=== PATIENT | male | born 1960 | race Caucasian/White ===

== ENCOUNTER → 2022-05-29 07:40 | Outpatient (REF) | payer OTHER, SELFPAY ==
--- NOTE | 2022-05-29 07:45 | CA_ITS ---
Transthoracic Echocardiogram Patient (Last, First, Middle): Juvenal Morataya, Gender: Male Date of : 1960 Age: 62 Procedure Date: 05/29/2022 Procedure Type: Transthoracic Echocardiogram Location: OP Height: 157.48 cm Weight: 86.18 kg BSA: 1.87 m2 Heart Rate: bpm BP: 151 / 70 mmHg Bioinformatics Support Specialist: TO Referring MD: Jeannine Gan MD Symptoms: HEART MURMUR Study Quality: Fair/Contrast ECG Rhythm: Sinus Conclusions: - The left ventricular systolic function is normal. The calculated ejection fraction is 64% by biplane method. - No obvious valvular pathology seen on this study. - There is mild dilatation of the ascending aorta measuring 4.00 cm. Findings Procedure Information Contrast agent, definity, is being given per protocol without apparent complications. Left Ventricle Normal left ventricular cavity size. The left ventricular systolic function is normal. The calculated ejection fraction is 64% by biplane method. There is no evidence of regional wall motion abnormalities. Diastolic function is normal for age. There is mild septal asymmetric hypertrophy. Right Ventricle Normal right ventricular cavity size and systolic function. Atria Both atria are normal in size. Aortic Valve There is a normal trileaflet aortic valve. There is mild thickening of the aortic valve. There is no aortic valve stenosis. Trace to mild aortic regurgitation. Mitral Valve The mitral valve appears normal. There is trace mitral valve regurgitation. There is no mitral valve stenosis. Pulmonic Valve The pulmonic valve is likely normal. Tricuspid Valve Normal tricuspid valve structure. There is mild tricuspid valve regurgitation. Borderline pulmonary artery systolic pressure. Great Vessels There is mild dilatation of the ascending aorta measuring 4.00 cm. Venous The inferior vena cava is normal in size and collapses greater than 50% with inspiration. Pericardium/Pleural There is no evidence of pericardial effusion. Prior Study Comparison No prior study available for comparison. Recommendations, Care & Conclusions No obvious valvular pathology seen on this study. Measurements 2D Linear Measurements IVSd: 1.07 0.6-0.9/0.6-1.0 cm LVIDd: 4.24 3.9-5.3/4.2-5.9 cm LVIDd Index: 2.27 2.4-3.2/2.2-3.1 cm/m2 LVIDs: 2.66 2.0-3.6 cm LVPWd: 0.79 0.7-1.1 cm LA Diam: 2.80 2.7-3.8/3.0-4.0 cm LAIDs Index: 1.50 1.5-2.3 cm/m2 LV Mass: 156.55 67-162/88-224 g LV Mass Index: 83.72 43-95/49-115 g/m2 LVOT Diam: 2.00 3.0+(-)1.3 cm 2D Systolic Function EF 4C: 64.00 >55% EF 2C: 62.50 >55% EF BiP: 64.40 >55% Mitral Valve MV Pk E: 0.75 MV PK A: 0.53 MV Decel Time: 172.00 E/A: 1.40 E'Lateral: 10.60 E'Medial: 7.29 E/E' Med: 10.20 E/E' Lat: 7.00 PHT: 50.00 MVA PHT: 4.40 Decel [place]: 4.34 Aortic Valve AoV Pk Sal: 1.39 AoV Mn Sal: 0.99 AoV VTI: 0.30 AoV Pk Grad: 8.00 Aov Mn Grad: 4.00 SARAH Cont.VTI: 2.79 LVOT LVOT Pk Sal: 1.31 LVOT Mn Sal: 0.83 LVOT VTI: 0.27 LVOT Pk Grad: 7.00 LVOT Mn Grad: 3.00 LVOT Diam: 2.00 LVOT Area: 3.14 Diastolic Function MV Pk E: 0.75 MV Pk A: 0.53 E/A: 1.40 E'Medial: 7.29 E/E' Med: 10.20 E' Laterial: 10.60 E/E' Lat: 7.00 Right Ventricle TAPSE (mm): 26.20 TVS' Sal: 11.90 Tricuspid Valve TR Pk Sal: 2.82 TR Pk Grad: 32.00 RA Press: 3.00 RVSP: 35.00 Great Vessels Aorta Sinus of Valsalva: 3.84 2.0-3.[address] [place]: 3.17 1.7-3.4 cm Ao Asc: 4.00 2.1-3.4 cm Updated in Other Vendor System with Status of Final Zack Valenzuela MD electronically signed on 05/31/2022 12:57:38 PM with status of Final
== END ==
LOC: HO.CARD 07:40
PROVIDERS: PCP Student in an Organized Health Care Education/Training Program; Visit Provider Internal Medicine
DX: R01.1 Cardiac murmur, unspecified (principal)
CPT/HCPCS: 93306; Q9957

== ENCOUNTER 2022-12-17 09:34 | Outpatient (REF) | payer MEDICARE, SELFPAY ==
[2022-12-17 15:13] LABS: Anion Gap 10 (12-20); Blood Urea Nitrogen 16 mg/dL (9-16); Calcium 9.9 mg/dL (8.4-10.2); Carbon Dioxide 27 mmol/L (22-29); Chloride 106 mmol/L (96-108); Estimated Glomerular Filt Rate > 60; Glucose Fasting 94 mg/dL (60-99); Sodium 139 mmol/L (135-145)
[2022-12-17 16:15] LABS: Creatinine Urine 248.22 mg/dL; Microalbum/Creatinine Ratio Ur 3.6 ug/mg cr (<30)
== END 2022-12-17 09:35 | disposition home or self-care (01) ==
LOC: HO.CHCLDS 09:34
PROVIDERS: Visit Provider Student in an Organized Health Care Education/Training Program
DX: E11.9 Type 2 diabetes mellitus without complications (principal)
CPT/HCPCS: 36415; 80048; 82043; 82570

== ENCOUNTER 2023-02-03 09:12 | Outpatient (AMB) | payer OTHER, SELFPAY ==
--- NOTE | 2023-02-03 09:39 | MHC.OFFVIS ---
Intake Vital Signs 02/03/23 09:40 Height 5 ft 2 in Weight 177 lb BMI 32.4 BP 104/63 Blood Pressure Location Rt brachial Position Sitting Pulse 77 Intake Visit Reasons: umbilical hernia Intake Note: Patient referred for umbilical hernia. Has been present for 11mo. C/o bothersome when pressed on, bending. Denies nausea. 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 Has a very large symptomatic right inguinal hernia. He wished to have this repaired. He does occasional heavy lifting and straining. He has no other GI issues or complaints. Chart was reviewed patient evaluated [facility] Medical History (Updated 02/03/23 @ 09:49 by NITZA Massey) Left inguinal hernia Right inguinal hernia Bipolar affective disorder in remission Type 2 diabetes mellitus HTN (hypertension) Surgical History (Updated 02/03/23 @ 10:08 by Terry Torres MD) Hip joint replacement by other means Social History (Updated 02/03/23 @ 09:49 by NITZA Massey) Patient Tobacco Use Status: Former Tobacco user Physical Exam Vital Signs: Last Vital Signs Pulse 77 02/03/23 09:40 BP 104/63 02/03/23 09:40 BMI result Body Mass Index 32.4 Chest Other: Chest breath sounds bilaterally, HS 1 in 2 GI Other: Patient was examined both supine and standing with Valsalva. Left groin negative. Genitalia within normal limits. Very large right inguinal hernia. Abdomen moderately core benign, soft, approximately 2 cm incarcerated umbilical hernia. Assessment & Plan Assessment & Plan (1) Inguinal hernia: Code(s): K40.90 - Unilateral inguinal hernia, without obstruction or gangrene, not specified as recurrent (2) Incarcerated umbilical hernia: Code(s): K42.0 - Umbilical hernia with obstruction, without gangrene Plan I discussed with the patient the risks, benefits, alternatives of open repair of right inguinal hernia and umbilical hernia. These included but not limited to bleeding, infection, recurrence, numbness, pain, scarring the patient was to proceed. All questions were answered. Arrangements will be made for this on a day which is convenient for him. Coding Level of Care Code New Pt Level 5 (38898) Diagnoses Inguinal hernia K40.90 Incarcerated umbilical hernia K42.0
[2023-02-03 09:40] VITALS: BP 104/63; PULSE 77; BMI 32.4
== END 2023-02-03 10:23 | disposition home or self-care (01) ==
PROVIDERS: PCP Student in an Organized Health Care Education/Training Program; Visit Provider Surgery
DX: K40.90 Unilateral inguinal hernia, without obstruction or gangrene, not specified as recurrent (principal); K42.0 Umbilical hernia with obstruction, without gangrene
CPT/HCPCS: 99204

== ENCOUNTER → 2023-02-03 09:12 | Outpatient (BNVA) | payer OTHER, SELFPAY | PROVIDERS: PCP Student in an Organized Health Care Education/Training Program; Visit Provider Surgery | DX: K42.0 Umbilical hernia with obstruction, without gangrene (principal); K40.90 Unilateral inguinal hernia, without obstruction or gangrene, not specified as recurrent | CPT/HCPCS: 99202 ==

== ENCOUNTER 2023-02-27 06:34 | Day surgery (SDC) | payer OTHER, SELFPAY ==
[2023-02-25 11:18] VITALS: BMI 32.4
[2023-02-25 11:43] VITALS: BMI 30.1
--- NOTE | 2023-02-26 12:30 | MHC.SHP ---
Pre-Procedural Eval Section A Date of Service: 02/26/23 The patient is an INPATIENT: No Changes since office visit: No Cold of Flu in the past 2 weeks, No New Medical Problems, No Changes in Medication and No Patient answered all questions The History & Physical has been completed within 30 days and I have reviewed it.: Yes Section B Chief Complaint: Unilateral inguinal hernia,Umbilical hernia with Allergies: Allergies Allergy/AdvReac Type Severity Reaction Status Date / Time No Known Allergies Allergy Verified 02/25/23 11:47 Plan I have reviewed the history and physical and performed a pertinent physical examination on my patient. No changes have occurred unless specified. Time Spent With Patient Time: Total time managing care of this patient today ____ minutes.
[2023-02-27] VITALS (8 sets, daily range): BP systolic 138–163; BP diastolic 82–95; PULSE 61–82; RESP 16–18; TEMP 36.1–36.6; O2SAT 97–99; BMI 30.6
[2023-02-27 09:10] LABS: Glucose, Whole Blood 104 mg/dL (60-115)
--- NOTE | 2023-02-27 10:50 | HO.ANESPROP2 ---
Documented by User: Barbi Raymundo NP 02/26/23 08:45 HPI - Anesthesia Eval Consult details Narrative: 63yo M for Right OPEN Hernia Repair Inguinal with mesh, Incarcerated Hernia Repair Umbilical with mesh Suboxone daily PMFSH Active Problems Active Problems: All Active Problems (Updated 02/25/23 @ 11:41 by Anna Strong RN) Incarcerated umbilical hernia (Acute) Inguinal hernia (Acute) Past Medical History Medical History (Updated 02/25/23 @ 11:47 by Anna Strong RN) Hx of renal calculi Depression Anxiety Insomnia COPD (chronic obstructive pulmonary disease) Murmur, cardiac Hx of hepatitis C Left inguinal hernia Right inguinal hernia Bipolar affective disorder in remission Type 2 diabetes mellitus HTN (hypertension) Surgical History Surgical History (Updated 02/25/23 @ 11:41 by Anna Strong RN) Hx of shoulder surgery Hx of left inguinal hernia repair History of right hip replacement Social History Social History (Updated 02/25/23 @ 11:43 by Anna Strong RN) Are you a primary insurance healthcare consultant to a significant other at home: No Do you presently have visiting nurse or other home services: No Patient Tobacco Use Status: Former Tobacco user Quit Date: 2016 Tobacco use type: Cigarette Substance Use Type Other:: on Suboxone since 2011 Last Used Substance Other:: on Suboxone since 2011 Have you been hit, kicked, punched, or otherwise hurt by someone within the past year? If so, by whom?: No Are you DNR?: No Advance Directives: No Advance Directives Information Provided: Yes Advance Directives on File: No Recently lost weight without trying: No Poor oral hygiene: Yes (no teeth) Meds Allergies Allergy/AdvReac Type Severity Reaction Status Date / Time No Known Allergies Allergy Verified 02/25/23 11:47 Home Medications Medication Instructions Recorded Confirmed Last Taken Type buprenorphine 8 mg-naloxone 2 mg 1 film buccal DAILY 02/03/23 02/25/23 Unknown History sublingual film (Suboxone) lisinopril 10 mg tablet 10 mg PO DAILY 02/03/23 02/25/23 Unknown History metformin 500 mg tablet 500 mg PO BID 02/03/23 02/25/23 Unknown History Flovent PRN Shortness Of Breath 02/25/23 02/25/23 Unknown History clonidine HCl 0.1 mg tablet 0.1 mg PO BID 02/25/23 02/25/23 Unknown History diclofenac sodium 1 % topical gel 2 g topical BID PRN Pain 02/25/23 02/25/23 Unknown History perphenazine 2 mg tablet 2 mg PO DAILY PRN Agitation 02/25/23 02/25/23 Unknown History perphenazine 4 mg tablet 4 mg PO DAILY 02/25/23 02/25/23 Unknown History venlafaxine 37.5 mg 37.5 mg PO DAILY 02/25/23 02/25/23 Unknown History capsule,extended release 24 hr zolpidem 10 mg tablet 10 mg PO BEDTIME PRN insomnia 02/25/23 02/25/23 Unknown History Exam Height,Weight and Vital Signs: Height 5 ft 3 in Weight 77.111 kg Pertinent Lab Results Pertinent Lab Results: Laboratory Tests 12/17/22 09:38 Sodium 139 Potassium 4.0 Chloride 106 Carbon Dioxide 27 BUN 16 Creatinine 0.83 Assessment and Plan Assessment Anesthesia Assessment: Chart Reviewed Documented by User: Malissa Nazario DO 02/27/23 10:53 HPI - Anesthesia Eval Consult details Narrative: 63yo M for Right OPEN Hernia Repair Inguinal with mesh, Incarcerated Hernia Repair Umbilical with mesh Suboxone daily - did not take today PMFSH Past Medical History Medical History (Updated 02/25/23 @ 11:47 by Anna Strong, ADELINA) Hx of renal calculi Depression Anxiety Insomnia COPD (chronic obstructive pulmonary disease) Murmur, cardiac Hx of hepatitis C Left inguinal hernia Right inguinal hernia Bipolar affective disorder in remission Type 2 diabetes mellitus HTN (hypertension) Surgical History Surgical History (Updated 02/25/23 @ 11:41 by Anna Strong, ADELINA) Hx of shoulder surgery Hx of left inguinal hernia repair History of right hip replacement History of Problems with Anesthesia: No Social History Social History (Updated 02/25/23 @ 11:43 by Anna Strong, ADELINA) Are you a primary insurance healthcare consultant to a significant other at home: No Do you presently have visiting nurse or other home services: No Patient Tobacco Use Status: Former Tobacco user Quit Date: 2016 Tobacco use type: Cigarette Substance Use Type Other:: on Suboxone since 2011 Last Used Substance Other:: on Suboxone since 2011 Have you been hit, kicked, punched, or otherwise hurt by someone within the past year? If so, by whom?: No Are you DNR?: No Advance Directives: No Advance Directives Information Provided: Yes Advance Directives on File: No Recently lost weight without trying: No Poor oral hygiene: Yes (no teeth) Meds Allergies Allergy/AdvReac Type Severity Reaction Status Date / Time No Known Allergies Allergy Verified 02/25/23 11:47 Home Medications Medication Instructions Recorded Confirmed Last Taken Type buprenorphine 8 mg-naloxone 2 mg 1 film buccal DAILY 02/03/23 02/25/23 Unknown History sublingual film (Suboxone) lisinopril 10 mg tablet 10 mg PO DAILY 02/03/23 02/25/23 Unknown History metformin 500 mg tablet 500 mg PO BID 02/03/23 02/25/23 Unknown History Flovent PRN Shortness Of Breath 02/25/23 02/25/23 Unknown History clonidine HCl 0.1 mg tablet 0.1 mg PO BID 02/25/23 02/25/23 Unknown History diclofenac sodium 1 % topical gel 2 g topical BID PRN Pain 02/25/23 02/25/23 Unknown History perphenazine 2 mg tablet 2 mg PO DAILY PRN Agitation 02/25/23 02/25/23 Unknown History perphenazine 4 mg tablet 4 mg PO DAILY 02/25/23 02/25/23 Unknown History venlafaxine 37.5 mg 37.5 mg PO DAILY 02/25/23 02/25/23 Unknown History capsule,extended release 24 hr zolpidem 10 mg tablet 10 mg PO BEDTIME PRN insomnia 02/25/23 02/25/23 Unknown History Exam Exam Date and Time: February 27, 2023 105 Height,Weight and Vital Signs: Height 5 ft 3 in Weight 77.111 kg Height 5 ft 3 in Weight 78.471 kg Vital Signs Temperature 97.9 F 02/27/23 09:14 Pulse Rate 66 02/27/23 09:14 Respiratory Rate 16 02/27/23 09:14 Blood Pressure 138/82 02/27/23 09:14 Pulse Oximetry 99 02/27/23 09:14 Oxygen Delivery Method Room Air 02/27/23 09:14 Temperature 97.9 F 02/27/23 09:14 Pulse Rate 66 02/27/23 09:14 Respiratory Rate 16 02/27/23 09:14 Blood Pressure 138/82 02/27/23 09:14 Pulse Oximetry 99 02/27/23 09:14 Oxygen Delivery Method Room Air 02/27/23 09:14 Airway Mallampati Class: II TM Dist: <=3cm Neck ROM: Full Loose/Missing/Broken Teeth: Yes (multiple missing teeth) Heart: S1S2 Lungs: CTAB Assessment and Plan Assessment Anesthesia Assessment: Anesthesia Plan Discussed and Chart Reviewed Final Anesthetic Review History of Problems with Anesthesia: No NPO: Yes ASA Class: III Final Preanesthetic Review: No Changes in Pt Med Stat, Meds/Allgs Chart Reviewed, Consent Obtained/Reviewed and Anes Risks/Benef Reviewed Patient Risk: Low Procedure Risk: Low Anesthetic Plan Anesthetic Plan: MAC: and Agree w/ Assess. and Plan Disposition: Standard PACU
--- NOTE | 2023-02-27 12:19 | W.PM.OPN ---
Operative Note Operative Note Date of Service: 02/27/23 Narrative: Preoperative diagnosis: [] 1. Right inguinal hernia 2. Incarcerated umbilical hernia Postop diagnosis: [] Same Procedure [] 1. Repair open technique right inguinal hernia with Bard mesh 2. Repair open technique incarcerated umbilical hernia with Bard mesh Surgeon: [] [employer] Specialist: [] Type of Anesthesia: MAC Indication for surgery: Approximately 2 cm incarcerated umbilical hernia with omental contents. Large indirect inguinal hernia. No direct hernia demonstrated. Findings: [] Patient brought to the operating room, placed on the operative table in supine position, after adequate level of MAC anesthesia was induced, patient's abdomen, and right groin were prepped and draped in usual sterile fashion. Commencing with the right inguinal hernia, a small right para- inguinal incision was made and carried down through skin, subcutaneous tissue, Michelle's fascia. External oblique fibers were opened their direction with care to isolate and preserve the ilioinguinal nerve throughout the procedure. Spermatic cord was identified and retracted from the field. No direct hernia was demonstrated. A very large indirect hernia sac was from the cord, and reduced. An extra-large Bard plug was placed in this indirect defect, and sutured inferiorly to the inguinal ligament, and superiorly to the transversalis fascia using interrupted 0 Ethibond suture. Wound was irrigated, secured hemostasis. Was closed in the following manner; external oblique fascia was reapproximated using running 2-0 Vicryl suture. Michelle's fascia was closed using interrupted 3-0 Vicryl sutures. Interrupted inverted deep dermal 3-0 Vicryl sutures followed by running subcuticular 4-0 Vicryl suture placed. Steri-Strips and sterile dressings were applied. Wound was infiltrated 0.5% Marcaine/1% lidocaine at the beginning and at completion. Ipsilateral testicle was intrascrotal at completion the procedure. Umbilical hernia was then approached using an infraumbilical curvilinear incision, and carried down through skin, subcutaneous tissue, where hernia sac was identified and dissected free from the posterior aspect of the umbilicus. Sac was opened where incarcerated omentum and sac were amputated using Bovie and sent to pathology. Fascia margins were cleared. A Bard mesh was placed in this defect, and the superficial layer of the mesh was circumferentially sutured to the surrounding fascia using interrupted 0 Ethibond suture. At completion the procedure, mesh was in good position no with no evidence of gaps or tension. Wounds irrigated, secured hemostasis. The wound Was closed in the following manner; posterior aspect of the umbilicus was tacked to the wound floor using interrupted 3-0 Vicryl sutures. Skin was closed using interrupted inverted dermal 3-0 Vicryl sutures followed by Steri-Strips and sterile dressings. Wound was also infiltrated 0.5% Marcaine/1% lidocaine at beginning and end of the procedure. Sponge, needle, and instrument counts reported correct. Patient tolerated procedure well and emerged anesthesia stable condition. EBL minimal
[2023-02-27] MEDS: oxyCODONE HCl Immed Release 5 MG TABLET 10 MG PO (13:10)
--- NOTE | 2023-02-27 13:57 | PC.NURSE ---
[facility] [place] pharmacy delivered prescriptions to patient/spouse in discharge.
== END 2023-02-27 14:30 | disposition home or self-care (01) ==
PROVIDERS: PCP Student in an Organized Health Care Education/Training Program; Visit Provider Surgery
PROC: (CPT 49505; principal; 2023-02-27 10:20)
PROC: (CPT 49505; 2023-02-27 10:20)
DX: K40.90 Unilateral inguinal hernia, without obstruction or gangrene, not specified as recurrent (principal); K42.0 Umbilical hernia with obstruction, without gangrene; I10 Essential (primary) hypertension; E11.9 Type 2 diabetes mellitus without complications; F31.70 Bipolar disorder, currently in remission, most recent episode unspecified; J44.9 Chronic obstructive pulmonary disease, unspecified; Z79.84 Long term (current) use of oral hypoglycemic drugs; Z79.899 Other long term (current) drug therapy; F11.20 Opioid dependence, uncomplicated; Z87.891 Personal history of nicotine dependence; Z98.890 Other specified postprocedural states
CPT/HCPCS: 49505; 49592; 82947; 88304; C1781; J0131; J0690; J1885; J2250; J2704; J2795; J3010

== ENCOUNTER → 2023-02-27 06:34 | Outpatient (BNV) | payer OTHER, SELFPAY | PROVIDERS: PCP Student in an Organized Health Care Education/Training Program; Visit Provider Surgery | DX: K40.90 Unilateral inguinal hernia, without obstruction or gangrene, not specified as recurrent (principal); K42.0 Umbilical hernia with obstruction, without gangrene | CPT/HCPCS: 49505; 49592 ==

== ENCOUNTER 2023-03-07 09:29 | Outpatient (AMB) | payer OTHER, SELFPAY ==
[2023-03-07 09:33] VITALS: BP 134/77; PULSE 65
--- NOTE | 2023-03-07 09:33 | A.OFFVIS_ITS ---
Intake Vital Signs 03/07/23 09:33 Weight 175 lb BP 134/77 Blood Pressure Location Rt brachial Position Sitting Pulse 65 Intake Visit Reasons: S/P RIH w/mesh, umbilical hernia w/mesh Intake Note: Patient here s/p RIH w/mesh and Umbilical hernia w/mesh repair on 02-27-23. Reports incisions healing well. Denies bleeding. Taking tylenol or ibuprofen for pain. 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 He has minimal incisional discomfort. He is tolerating it diet and having normal bowel habits. He has been increasing his activity level. [facility] Medical History Hx of renal calculi Depression Anxiety Insomnia COPD (chronic obstructive pulmonary disease) Murmur, cardiac Hx of hepatitis C Left inguinal hernia Right inguinal hernia Bipolar affective disorder in remission Type 2 diabetes mellitus HTN (hypertension) Surgical History Hx of shoulder surgery Hx of left inguinal hernia repair History of right hip replacement Social History Are you a primary care worker to a significant other at home: No Do you presently have visiting nurse or other home services: No Patient Tobacco Use Status: Former Tobacco user Quit Date: 2016 Tobacco use type: Cigarette Physical Exam Vital Signs: Last Vital Signs Pulse 65 03/07/23 09:33 BP 134/77 03/07/23 09:33 GI Other: Abdomen soft. Umbilical right groin wounds well healed. Assessment & Plan Assessment & Plan (1) Incarcerated umbilical hernia: Code(s): K42.0 - Umbilical hernia with obstruction, without gangrene (2) Inguinal hernia: Code(s): K40.90 - Unilateral inguinal hernia, without obstruction or gangrene, not specified as recurrent Plan Patient has been given local instructions including avoiding stress activities next few weeks time and will follow-up p.r.n.. All questions answered. Coding Level of Care Code Global (01408) Diagnoses Incarcerated umbilical hernia K42.0 Inguinal hernia K40.90
== END 2023-03-07 10:42 | disposition home or self-care (01) ==
PROVIDERS: PCP Student in an Organized Health Care Education/Training Program; Visit Provider Surgery
DX: K42.0 Umbilical hernia with obstruction, without gangrene (principal); K40.90 Unilateral inguinal hernia, without obstruction or gangrene, not specified as recurrent
CPT/HCPCS: 99024

== ENCOUNTER → 2023-03-07 09:29 | Outpatient (BNVA) | payer OTHER, SELFPAY | PROVIDERS: PCP Student in an Organized Health Care Education/Training Program; Visit Provider Surgery | DX: K42.0 Umbilical hernia with obstruction, without gangrene (principal); K40.90 Unilateral inguinal hernia, without obstruction or gangrene, not specified as recurrent | CPT/HCPCS: 99212 ==

== ENCOUNTER 2023-06-18 10:14 | Outpatient (REF) | payer OTHER, SELFPAY ==
[2023-06-18 14:56] LABS: Estimated Average Glucose 108 mg/dL; Hemoglobin A1c % 5.4 % (<6.0)
[2023-06-18 15:05] LABS: Alanine Aminotransferase 13 U/L (0-40); Albumin Level 4.2 g/dL (3.5-5.0); Alkaline Phosphatase 60 U/L (39-117); Anion Gap 10 (12-20); Aspartate Amino Transferase 19 U/L (5-37); Bilirubin Direct 0.5 mg/dL (0.0-0.5); Bilirubin Total 1.7 mg/dL (0.0-1.0); Blood Urea Nitrogen 17 mg/dL (9-16); Calcium 9.2 mg/dL (8.4-10.2); Carbon Dioxide 28 mmol/L (22-29); Chloride 105 mmol/L (96-108); Cholesterol 194 mg/dL (<200); Estimated Glomerular Filt Rate > 60; Glucose Random 91 mg/dL (60-115); HDL Cholesterol 36 mg/dL (>40); LDL Cholesterol Calculated 128 mg/dL (<100); Potassium 4.2 mmol/L (3.3-5.1); Sodium 139 mmol/L (135-145); Total Protein 7.8 g/dL (6.5-8.0); Triglycerides 153 mg/dL (<150)
== END 2023-06-18 10:15 | disposition home or self-care (01) ==
LOC: HO.CHCLDS 10:14
PROVIDERS: Visit Provider Student in an Organized Health Care Education/Training Program
DX: E11.9 Type 2 diabetes mellitus without complications (principal)
CPT/HCPCS: 36415; 80048; 80061; 80076; 83036

== ENCOUNTER 2023-11-12 10:37 | Outpatient (REF) | payer OTHER, SELFPAY ==
[2023-11-12 14:20] LABS: Hematocrit 38.4 % (42.0-52.0); Mean Corpuscular HGB Conc 33.9 g/dl (31.0-36.0); Mean Corpuscular Hemoglobin 29.3 pg (27.0-33.0); Mean Corpuscular Volume 86.7 fL (80.0-98.0); Mean Platelet Volume 10.6 fL (9.4-12.4); Platelet Count 226 X10*3/uL (160-400); Red Blood Count 4.43 X10*6/uL (4.60-5.80); Red Cell Distribution Width 12.5 % (11.0-16.0)
[2023-11-12 14:34] LABS: Alanine Aminotransferase 13 U/L (0-40); Albumin Level 4.1 g/dL (3.5-5.0); Alkaline Phosphatase 51 U/L (39-117); Anion Gap 10 (12-20); Aspartate Amino Transferase 19 U/L (5-37); Bilirubin Total 1.7 mg/dL (0.0-1.0); Blood Urea Nitrogen 15 mg/dL (9-16); Calcium 9.5 mg/dL (8.4-10.2); Carbon Dioxide 29 mmol/L (22-29); Chloride 106 mmol/L (96-108); Estimated Glomerular Filt Rate > 60; Glucose Random 93 mg/dL (60-115); Potassium 4.4 mmol/L (3.3-5.1); Sodium 141 mmol/L (135-145); Total Protein 7.3 g/dL (6.5-8.0)
== END 2023-11-12 10:38 | disposition home or self-care (01) ==
LOC: HO.CHCLDS 10:37
PROVIDERS: Visit Provider Internal Medicine
DX: I10 Essential (primary) hypertension (principal); E11.9 Type 2 diabetes mellitus without complications; Z01.818 Encounter for other preprocedural examination
CPT/HCPCS: 36415; 80053; 85027

== ENCOUNTER 2024-02-09 10:29 | Outpatient (REF) | payer OTHER, SELFPAY ==
[2024-02-09 14:30] LABS: Estimated Average Glucose 114 mg/dL; Hemoglobin A1C 130.0575 umol/L; Hemoglobin A1c % 5.6 % (<6.0); Total Hemoglobin (HGBA1C) 3491.3985 umol/L
[2024-02-09 14:38] LABS: Alanine Aminotransferase 12 U/L (0-40); Albumin Level 4.2 g/dL (3.5-5.0); Alkaline Phosphatase 57 U/L (39-117); Anion Gap 10 (12-20); Aspartate Amino Transferase 30 U/L (5-37); Bilirubin Direct 0.5 mg/dL (0.0-0.5); Bilirubin Total 1.8 mg/dL (0.0-1.0); Blood Urea Nitrogen 12 mg/dL (9-16); Calcium 9.1 mg/dL (8.4-10.2); Carbon Dioxide 28 mmol/L (22-29); Chloride 107 mmol/L (96-108); Cholesterol 185 mg/dL (<200); Estimated Glomerular Filt Rate > 60; Glucose Random 98 mg/dL (60-115); HDL Cholesterol 36 mg/dL (>40); LDL Cholesterol Calculated 126 mg/dL (<100); Potassium 4.2 mmol/L (3.3-5.1); Sodium 141 mmol/L (135-145); Total Protein 7.3 g/dL (6.5-8.0); Triglycerides 118 mg/dL (<150)
== END 2024-02-09 10:30 | disposition home or self-care (01) ==
LOC: HO.CHCLDS 10:29
PROVIDERS: Visit Provider Student in an Organized Health Care Education/Training Program
DX: E11.9 Type 2 diabetes mellitus without complications (principal); I10 Essential (primary) hypertension
CPT/HCPCS: 36415; 80048; 80061; 80076; 83036

== ENCOUNTER 2024-03-22 14:06 | Outpatient (AMB) | payer OTHER, SELFPAY ==
--- NOTE | 2024-03-22 14:08 | A.OFFVIS_ITS ---
Vital Signs 03/22/24 14:18 Height 5 ft 3 in Weight 172 lb BMI 30.5 BP 128/75 Blood Pressure Location Rt brachial Position Sitting Pulse 67 Intake Visit Reasons: ? new hernia Intake Note: Patient scheduled today's appointment due to incisional hernia, right groin. Patient c/o: reports he bent down one day and he felt a pop, he then noticed painful bowel movements. He reports this bulge was reducible. He reports for the last x2 days he has been drinking alot of water and he was able to have a good bowel movement and his pain has improved since. Hx: 1. Right inguinal hernia 2. Incarcerated umbilical hernia repair on 02-27-2023. Sand Plant Attendant Required: No Accompanied by: Self / Same As Patient Allergies No Known Allergies Allergy (Verified 03/22/24 14:23) HPI Comments Details: Patient presents for evaluation of right groin swelling. He had a right inguinal hernia repair roughly a year ago. A proximally 2 months ago, patient was doing strenuous activities and felt a pop in his right groin and has had a bulge there which has progressed. He presents here for further evaluation. He is otherwise tolerating a diet. Having regular bowel habits. Patient was Pantera to me from the past. Chart was reviewed and patient evaluated [facility] Medical History Hx of renal calculi Depression Anxiety Insomnia COPD (chronic obstructive pulmonary disease) Murmur, cardiac Hx of hepatitis C Left inguinal hernia Right inguinal hernia Bipolar affective disorder in remission Type 2 diabetes mellitus HTN (hypertension) Surgical History Hx of shoulder surgery Hx of left inguinal hernia repair History of right hip replacement Social History Are you a primary care trainer to a significant other at home: No Do you presently have visiting nurse or other home services: No Patient Tobacco Use Status: Former Tobacco user Tobacco use type: Cigarette Physical Exam Vital Signs: Last Vital Signs Pulse 67 03/22/24 14:18 BP 128/75 03/22/24 14:18 BMI result Body Mass Index 30.5 Chest Other: Chest breath sounds bilaterally, HS 1 in 2 GI Other: Patient was examined both supine and standing with Valsalva. Abdomen is soft common [place], benign. Left groin negative. Patient has a recurrent right inguinal hernia reducible on the right. Assessment & Plan Assessment & Plan (1) Recurrent right inguinal hernia: Code(s): K40.91 - Unilateral inguinal hernia, without obstruction or gangrene, recurrent Category: Surgical Plan Risks, benefits, alternatives of repair of recurrent right inguinal hernia reviewed with the patient and included but not limited to bleeding, infection, recurrence, numbness, pain, scarring and the patient wishes to proceed. All questions answered. Arrangements were made for this on a day which is convenient for him. Coding Level of Care Code Est Pt Level 5 (44105) Diagnoses Recurrent right inguinal hernia K40.91
--- OUTSIDE RECORDS SUMMARY | 2024-03-22 14:08 | XMS_ITS | Continuity of Care Document ---
Author Organization [employer] [place] [facility] Address [address] [place] [phone] Care Team Providers Care General Claims Agent Name Role Phone HIM CCA OTHER Assessment No assessment recorded. Plan of Treatment Reminders Order Date Submit Date Provider Last Modified By Organization Details Last Modified Time Details Appointments None recorded. Lab BMP, serum or plasma [address], [address] [place] [address], [phone], 10:35:15 Referral None recorded. Procedures None recorded. Surgeries None recorded. Imaging electrocard iogram [address], [address] [place] [address], [phone], 10:35:16 Medication Orders hydrochloro thiazide 12.5 mg tablet 2023 [facility] #[id number], [address] [place], [address], 10:34:55 Patient TargetsNo targets recorded. Patient InstructionsNo instructions recorded. Reason for Referral None Reported. Results Created Date Observation Date Name Description Value Unit Range Abnormal Flag Note LastModifiedBy Organization Detail LastModifiedTime 01/12/20 24 elect rocar diogr am No observ ation record ed. [address], [phone], 01/12/2024 10:35:06 Result Notes None recorded. Procedures Surgical History None recorded. Imaging Results Imaging Date Name Status LastModified by Organization Details LastModified Time 01/12/2024 electrocardiogram completed [address], [phone], 01/12/2024 10:35:06 Procedure Notes None recorded. Medical Equipment None Reported. Medications Name Sig Start Date Stop Date Status Note LastModified by Organization Details LastModified Time amoxicillin 500 mg capsule TAKE 4 TABS ONE HOUR BEFORE DENTAL PROCEDURES. active Not Available Not Available Not Available latanoprost 0.005 % eye drops INSTILL 1 DROP INTO BOTH EYES EVERY DAY AT NIGHT active Not Available Not Available No t Available metformin 500 mg tablet TAKE 1 TABLET (500 MG) BY MOUTH WITH BREAKFAST AND WITH EVENING MEAL active Not Available Not Available No t Available venlafaxine ER 37.5 mg capsule,exte nded release 24 hr TAKE 1 CAPSULE BY MOUTH EVERY DAY active Not Available Not Available No t Available clonidine HCl 0.1 mg tablet TAKE 1 TABLET BY MOUTH TWICE A DAY active Not Available Not Available No t Available perphenazine 2 mg tablet TAKE 1 TABLET BY MOUTH ONCE A DAY NEEDED FOR AGITATION/P ARANOIA active Not Available Not Available No t Available ibuprofen 800 mg tablet TAKE 1 TABLET BY MOUTH EVERY 8 HOURS NEEDED FOR MILD PAIN FOR UP TO 10 DAYS active Not Available Not Available No t Available ofloxacin 0.3 % eye drops PLEASE SEE ATTACHED FOR DETAILED DIRECTIONS active Not Available Not Available N ot Available hydrocodone 5 mg-acetamino phen 325 mg tablet active Not Available Not Available Not Available acetazolamid e 250 mg tablet TAKE 1 TABLET BY MOUTH THREE TIMES A DAY active Not Available Not Available Not Available acetaminophe n 500 mg tablet TAKE 1 TABLET (500 MG) BY MOUTH EVERY 6 (SIX) HOURS IF NEEDED FOR MILD PAIN FOR UP TO 10 DAYS. active Not Available Not Available No t Available ketorolac 0.5 % eye drops INSTILL 1 DROP INTO LEFT EYE FOUR TIMES A DAY FOR 2 DAYS AFTER LASER THEN STOP active Not Available Not Available No t Available prednisolone acetate 1 % eye drops,suspen nereida PLEASE SEE ATTACHED FOR DETAILED DIRECTIONS active Not Available Not Available N ot Available OneTouch Ultra Test strips TEST TWO TIMES A DAY active Not Available Not Available Not Available neomycin-dionisio ymyxin-dexam eth 3.5 mg/mL-10,000 unit/mL-0.1% eye drops active Not Available Not Available No t Available brimonidine 0.2 % eye drops INSTILL 1 DROP INTO BOTH EYES TWICE A DAY active Not Available Not Available Not Available perphenazine 4 mg tablet TAKE 1 TABLET BY MOUTH EVERY DAY active Not Available Not Available No t Available fluoxetine 10 mg capsule TAKE 1 CAPSULE BY MOUTH EVERY DAY IN THE MORNING active Not Available Not Available No t Available dorzolamide 22.3 mg-timolol 6.8 mg/mL eye drops INSTILL 1 DROP INTO BOTH EYES TWICE A DAY active Not Available Not Available Not Available zolpidem 10 mg tablet TAKE 1 TABLET BY MOUTH EVERY DAY AT BEDTIME NEEDED FOR SLEEP active Not Available Not Available No t Available timolol maleate 0.5 % eye drops INSTILL 1 DROP INTO BOTH EYES TWICE A DAY active Not Available Not Available Not Available lisinopril 40 mg tablet TAKE 1 TABLET BY MOUTH EVERY DAY active Not Available Not Available No t Available zolpidem ER 12.5 mg tablet,exten ded release,mult iphase TAKE 1 TABLET BY MOUTH EVERY NIGHT AT BEDTIME NEEDED FOR SLEEP active Not Available Not Available No t Available hydrochlorot hiazide 12.5 mg tablet TAKE 1 TABLET EVERY DAY BY ORAL ROUTE FOR 30 DAYS, FOR HIGH BLOOD PRESSURE. active Not Available Not Available No t Available brimonidine 0.2 %-timolol 0.5 % eye drops INSTILL 1 DROP INTO BOTH EYES TWICE A DAY active Not Available Not Available Not Available diclofenac 1 % topical gel APPLY 2 GRAM'S TO AFFECTED AREA(s) TWICE DAILY NEEDED active Not Available Not Available No t Available buprenorphin e 8 mg-naloxone 2 mg sublingual film DISSOLVE 2 FILMS UNDER THE TONGUE EVERY DAY active Not Available Not Available No t Available Rhopressa 0.02 % eye drops INSTILL 1 DROP INTO LEFT EYE EVERY NIGHT active Not Available Not Available Not Available OneTouch Delica Plus Lancet 33 gauge TEST BLOOD SUGAR TWICE DAILY active Not Available Not Available No t Available Vitals None Recorded Social History None recorded. Functional Status None recorded. Mental Status None recorded. Family History Nothing Reported. Medical History No medical history recorded. Past Encounters Encounter ID Performer Location Encounter Start Date Encounter Closed Date Diagnosis/Indication Diagnosis SNOMED-CT Code Diagnosis ICD10 Code [id number] Jerri Jeffries MD [facility] [address] [place] [address] 01/12/2024 10:23:33 2024 10:31:35 Essential hypertension 99409870 I10 Health Concerns Section Related Observation LastModified by Organization Detai ls LastModified Time None Recorded Concern Status LastModified by Organization Details LastModified Time None Recorded Payers Encounter Date Sequence Insurance Name Policy Number Policy Tavarez Covered Member ID Tavarez Member ID Guarantor Name 01/12/2024 1 [facility] - DOS ON OR AFTER 2022 - DUAL ELIGIBLE - [facility] [employer] AND ONE [employer] (MEDICARE REPLACEMENT/ADV ANTAGE - HMO) Juvenal Morataya [id number] Juvenal Morataya Notes Date Note Type Note Provider Name and Address Organization Details Recorded Time 01/12/2024 text/html CRC Nurse Triage Notes (Felicia Diaz): Reason For Request: Patient is having Blood Pressure problems, seems high, and fluctuating Chief Complaints: Hypertension PMH: Hypertension, COPD/Asthma Other Allergies: one that was an eye drop unsure the name Comments: Acid Patroller verified the member's name//address and phone number. Member is a 63 yr old male, a/ PMH >schizophrenia, HTN , lung disease Allergies >one that was an eye drop unsure the name Pt calling , he has been moderating his BP. Since yesterday BP has been 160-170, and taking medications, clonidine. Normally the med will bring it down to 101. Today, he checked his BP, and it was 160's. He has been feeling nausea and light headed. He denies any SOB or chest pain. He has had episodes of tightness in his chest, but it goes away with an inhaler; he denies any at this time. He denies any COATES, but has some sinus pressure. His normal BP prior to meds is 130-140's. He denies any GI / or flu like symptoms. He has glaucoma, he stop his beta drops 2 months ago as it was dropping his BP Education provided on the response time and the member was advised to monitor reported s/s and seek emergency treatment if needed Card Dealer Organization Information for [employer] Business Legal Name: Located Within [facility] Address: [address] [place] [address], [place] [id number], Recycling Or Rubbish Collector: Jalil Pina MD CLIA No.: [id number] Card Dealer POC Test Results from [employer] EKG (10:15:48) EKG test performed. Attachments uploaded as part of this test result can be found under Documents section. epoc (10:29:55) pH: 7.38 pH units pCO2: 45.9 mmHg pO2: 27.8 mmHg Na: 138 mmol/L K: 4.5 mmol/L iCa: 1.18 mmol/L Cl: 103 mmol/L TCO2: 27.4 mEq/L Hct: 39 % Hb: 13.2 g/dL Glu: 175 mg/dL Lac: 1.6 mmol/L Cr: 0.8 mg/dL BUN: 22 mg/dL A .................... .................... .................... .................... .................... .................... .................... . Card Dealer Note From [employer]: Pt with hx of COPD, HTN, DM II reports several days of elevated BP (150? s-160? s / 80? s-90? s). Pt takes lisinopril 40 mg daily and has PRN clonidine 0.1 mg to take if his BP is elevated. Pt denies any current CP, SOB, COATES dizziness, f/n/v/d. Pt has PCP f/u next month. Pt is alert, NAD. VSS (150/87). Afebrile. Non focal neuro exam. Normal gait. Lungs CTA. Benign ABD exam. +2 BLE pitting edema (pt reports has been worse in the past). Unremarkable EKG. Unremarkable POC labs. Pt educated on prescription and advised to f/u with PCP to see if they would like to schedule a sooner appt. Pt instructed to present to the ED for new sx such as CP, SOB, COATES, dizziness, vision changes. Pt agrees with plan. .................... .................... .................... .................... .................... .................... .................... . Disposition: Fulfilled Jerri Jeffries MD [address] [place] [address],[address], [place], [address], [employer], [place] 01/12/2024 11:47:27
[2024-03-22 14:18] VITALS: BP 128/75; PULSE 67; BMI 30.5
== END 2024-03-22 14:39 | disposition home or self-care (01) ==
PROVIDERS: PCP Student in an Organized Health Care Education/Training Program; Visit Provider Surgery
DX: K40.91 Unilateral inguinal hernia, without obstruction or gangrene, recurrent (principal)
CPT/HCPCS: 99214

== ENCOUNTER → 2024-03-22 14:06 | Outpatient (BNVA) | payer OTHER, SELFPAY | PROVIDERS: PCP Student in an Organized Health Care Education/Training Program; Visit Provider Surgery | DX: K40.91 Unilateral inguinal hernia, without obstruction or gangrene, recurrent (principal) | CPT/HCPCS: 99212 ==

== ENCOUNTER → 2024-05-11 12:25 | Outpatient (REF) | payer OTHER, SELFPAY ==
--- NOTE | 2024-05-11 13:00 | CA_ITS ---
Transthoracic Echocardiogram Patient (Last, First, Middle): Juvenal Morataya, Gender: Male Date of : 1960 Age: 64 Procedure Date: 05/11/2024 Procedure Type: Transthoracic Echocardiogram Location: OP Height: 157.48 cm Weight: 74.39 kg BSA: 1.76 m2 Heart Rate: bpm BP: 130 / 80 mmHg Fullerette: Referring MD: Jerman Silva MD Symptoms: R07.89 CHEST PAIN ABNORMAL EKG, EXERTIONAL CP Study Quality: Good ECG Rhythm: Sinus Conclusions: - The left ventricular systolic function is normal. The calculated ejection fraction is 59% by biplane method. - No obvious valvular pathology seen on this study. - There is mild dilatation of the ascending aorta measuring 3.80 cm. Findings Left Ventricle Normal left ventricular cavity size. There is mildly increased left ventricular wall thickness. The left ventricular systolic function is normal. The calculated ejection fraction is 59% by biplane method. There is no evidence of regional wall motion abnormalities. Diastolic function is normal for age. Right Ventricle Normal right ventricular cavity size and systolic function. Atria Both atria are normal in size. Aortic Valve There is a normal trileaflet aortic valve. There is no aortic valve stenosis. There is trace (trivial) aortic valve regurgitation. Mitral Valve The mitral valve appears normal. There is no mitral valve regurgitation. There is no mitral valve stenosis. Pulmonic Valve The pulmonic valve is likely normal. Tricuspid Valve Normal tricuspid valve structure. There is mild tricuspid valve regurgitation. There is no evidence of pulmonary hypertension. Great Vessels There is mild dilatation of the ascending aorta measuring 3.80 cm. Venous The inferior vena cava is normal in size and collapses greater than 50% with inspiration. Pericardium/Pleural There is no evidence of pericardial effusion. Prior Study Comparison No significant change compared to prior study dated: 05/29/2022. Recommendations, Care & Conclusions No obvious valvular pathology seen on this study. Measurements 2D Linear Measurements IVSd: 1.06 0.6-0.9/0.6-1.0 cm LVIDd: 4.10 3.9-5.3/4.2-5.9 cm LVIDd Index: 2.33 2.4-3.2/2.2-3.1 cm/m2 LVIDs: 2.40 2.0-3.6 cm LVPWd: 1.03 0.7-1.1 cm Ao Root: 3.70 2.1-3.5 cm LA Diam: 3.10 2.7-3.8/3.0-4.0 cm LAIDs Index: 1.76 1.5-2.3 cm/m2 LV Mass: 174.99 67-162/88-224 g LV Mass Index: 99.42 43-95/49-115 g/m2 LVOT Diam: 2.00 3.0+(-)1.3 cm 2D Systolic Function EF 4C: 59.80 >55% EF 2C: 58.00 >55% EF BiP: 58.50 >55% Mitral Valve MV Pk E: 0.90 MV PK A: 0.86 MV Decel Time: 151.00 E/A: 1.10 E'Lateral: 11.90 E'Medial: 11.40 E/E' Med: 7.90 E/E' Lat: 7.60 PHT: 44.00 MVA PHT: 5.00 Decel Ocean: 6.00 Aortic Valve AoV Pk Sal: 1.48 AoV Pk Grad: 9.00 LVOT LVOT Pk Sal: 1.21 LVOT Mn Sal: 0.78 LVOT VTI: 0.24 LVOT Pk Grad: 6.00 LVOT Mn Grad: 3.00 LVOT Diam: 2.00 LVOT Area: 3.14 Diastolic Function MV Pk E: 0.90 MV Pk A: 0.86 E/A: 1.10 E'Medial: 11.40 E/E' Med: 7.90 E' Laterial: 11.90 E/E' Lat: 7.60 Right Ventricle TAPSE (mm): 29.00 TVS' Sal: 12.00 Tricuspid Valve TR Pk Sal: 2.47 TR Pk Grad: 24.00 RA Press: 3.00 RVSP: 27.00 Great Vessels Aorta Ao Root-2D: 3.70 2.0-3.7 cm Ao Asc: 3.80 2.1-3.4 cm Pulmonary Valve PV Pk Sal: 0.94 Peak PV Grad: 4.00 Updated in Other Vendor System with Status of Final Zack Valenzuela MD electronically signed on 05/11/2024 3:41:00 PM with status of Final
--- OUTSIDE RECORDS SUMMARY | 2024-05-11 13:17 | XMS_ITS | Encounter Summary ---
Author Organization [employer] Address [address] [place] [address] Care Team Providers Care Exhaust Emissions Inspector Name Role Phone Kimberly Fay MD Primary Care Provider [phone] Reason for Visit * Reason Comments Med Refill Encounter Details Date Type Department Care Team ([facility] Contact Info) Description 02/12/2024 Refill [facility] MED & PEDS [address] [place], [place] [phone] Kimberly Fay MD [address] [place] [address] Social History Tobacco Use Types Packs/Day Years Used Date Smoking Tobacco: Former Cigarettes 1.5 20 Q uit: 2017 Passive Smoke Exposure: Never Smokeless Tobacco: Former Snuff Comments:Stopped 2017 Alcohol Use Standard Drinks/Week Comments Never 0 (1 standard drink = 0.6 oz pur e alcohol) Depression Answer Date Recorded Patient Health Questionnaire-9 Score 3 03/29/2022 Housing Stability Answer Date Recorded What is your housing situation today? I have katy worthy 06/02/[address] you li ve. Do you have problems with any of the following? None of the above 06/02/2023 Food Insecurity Answer Date Recorded Within the past 12 months, y ou worried that your food would run out before you got money to buy more: Never True 06/02/2023 Within the past 12 months,th e food you bought just didn't last and you didn't have enough money to get more: Never True 01/2024 Transportation Answer Date Recorded In the past 12 months, has l ack of transportation kept you from medical appts, meetings, work or from getting things needed for daily living? No 06/02/2023 Utilities Answer Date Recorded In the past 12 months, has t he electric, gas, oil or water company threatened to shut off services in your home? No 06/02/2023 Depression Answer Date Recorded Patient Health Questionnaire-2 Score 1 03/29/2022 Sex and Gender Information Value Date Recorded Sex Assigned at Male 01/21/2022 10:15 AM EDT Legal Sex Male 10:15 AM EDT Gender Identity Male 01/21/2022 10:15 AM EDT Sexual Orientation Straight 01/21/2022 10 :15 AM EDT documented as of this encounter Plan of Treatment Upcoming Encounters Date Type Department Care Team (Late st Contact Info) Description 06/07/2024 11:00 AM EDT Clinical Support [facility] MED & PEDS [address] [place] [address] Randi Porter RN documented as of this encounter Visit Diagnoses Not on filedocumented in this encounter Additional Health Concerns Assessment Noted Time PHQ-9 Depression Total Score: 3 03/29/19 23 1:20 PM EST documented as of this encounter Care Teams Exhaust Emissions Inspector Relationship Specialty Start Date End Date Kimberly Fay MD [address] [place] [id number] PCP - General Family Medicine 06/24/12 documented as of this encounter
--- OUTSIDE RECORDS SUMMARY | 2024-05-11 13:17 | XMS_ITS | Encounter Summary ---
Author Organization [employer] Address [address] [place] [address] Care Team Providers Care Industrial Health Engineer Name Role Phone Kimberly Fay MD Primary Care Provider [phone] Reason for Visit * Reason Onset Date Comments Returning call 04/09/2024 Encounter Details Date Type Department Care Team ([facility] Contact Info) Description 04/09/2024 Telephone [facility] MED & PEDS [address] [place] [address] Kimberly Fay MD [address] [place] [address] Returning call Social History Tobacco Use Types Packs/Day Years [...] AM EDT documented as of this encounter Miscellaneous Notes * Telephone Encounter - Nidhi Yates RN - 04/16/2024 3:09 PM EST TC to patient. Unable to complete call d/t the number not working. * Telephone Encounter - Virgilio Monahan - 04/09/2024 3:55 PM EST Tc from pt regarding some papers that need to be faxed over to the surgeon that is going to be doing the surgery on him. Pt is fustrated about back and forth. * Telephone Encounter - Nidhi Yates RN - 04/09/2024 2:32 PM EST TC to patient. Patient is not sure if he was cleared for eye surgery, or hernia surgery. Patient was not sure about paperwork needed, pre-op appointments, ect.. Explained to patient he was seen by Dr. Silva on 04/06/24 for a pre-op appointment for right inguinal repair. Patient states he does not think that is right, he thinks that appointment was for eye surgery. Advised patient to call eye doctor regarding pre-op and call hernia repair surgeon regarding pre-op, and specifically ask what paperwork they need and if they are making appointments. Patient stated understanding and agrees with this plan. He will return call to office once he has spoken with those 2 offices. * Telephone Encounter - Marlene Hernadez - 04/09/2024 2:05 PM EST Tc from pt calling to inform called his hernia dr specialist and was advised to request a clearancefrom pcp to schedule another surgery date. Please call pt to clarify. No further information given. documented in this encounter Plan of Treatment Upcoming Encounters Date Type Department Care Team (Late st Contact Info) Description 06/07/2024 11:00 AM EDT Clinical Support [facility] MED & PEDS [address] [place] [address] Randi Porter, ADELINA documented as of this encounter Visit Diagnoses Not on filedocumented in this encounter Additional Health Concerns Assessment Noted Time PHQ-9 Depression Total Score: 3 03/29/19 23 1:20 PM EST documented as of this encounter Care Teams Industrial Health Engineer Relationship Specialty Start Date End Date Kimberly Fay MD [address] [place] [id number] PCP - General Family Medicine 06/24/12 documented as of this encounter
--- OUTSIDE RECORDS SUMMARY | 2024-05-11 13:17 | XMS_ITS | Encounter Summary ---
Author Organization [employer] Address [address] [place] [address] Care Team Providers Care Web Applications Architect Name Role Phone Kimberly Fay MD Primary Care Provider [phone] Reason for Visit * Reason Comments Med Refill Encounter Details Date Type Department Care Team ([facility] st Contact Info) Description 05/08/2024 Refill [facility] CH[facility] MED & PEDS [address] [place], [place] [phone] Pedro Gallegos MD [address] [place] [address] Primary hypertension Social History Tobacco Use Types Packs/Day Years [...] Description 06/07/2024 11:00 AM EDT Clinical Support [facility] MED & PEDS [address] [place] [address] Randi Porter, RN documented as of this encounter Visit Diagnoses Diagnosis Primary hypertension Unspecified essential hypertension documented in this encounter Additional Health Concerns Assessment Noted Time PHQ-9 Depression Total Score: 3 03/29/19 23 1:20 PM EST documented as of this encounter Care Teams Web Applications Architect Relationship Specialty Start Date End Date Kimberly Fay MD [address] [place] [id number] PCP - General Family Medicine 06/24/12 documented as of this encounter
--- OUTSIDE RECORDS SUMMARY | 2024-05-11 13:17 | XMS_ITS | Encounter Summary ---
Author Organization [employer] Address [address] [place] [address] Care Team Providers Care Cardboard Cutter Name Role Phone Kimberly Fay MD Primary Care Provider [phone] Encounter Details Date Type Department Care Team ([facility] st Contact Info) Description 01/09/2024 Telephone [facility] ADULT DENTAL [address] [place] [address] Alexandro Canales, BDLacie [address] [place], [place] [phone] Social History Tobacco Use Types Packs/Day Years [...] 06/07/2024 11:00 AM EDT Clinical Support [facility]ED[facility] [address] [place] [address] Randi Porter, RN documented as of this encounter Visit Diagnoses Not on filedocumented in this encounter Additional Health Concerns Assessment Noted Time PHQ-9 Depression Total Score: 3 03/29/19 23 1:20 PM EST documented as of this encounter Care Teams Cardboard Cutter Relationship Specialty Start Date End Date Kimberly Fay MD [address] [place] [id number] PCP - General Family Medicine 06/24/12 documented as of this encounter
--- OUTSIDE RECORDS SUMMARY | 2024-05-11 13:17 | XMS_ITS | Encounter Summary ---
Author Organization [employer] Address [address] [place] [address] Care Team Providers Care Title Officer Name Role Phone Kimberly Fay MD Primary Care Provider [phone] Reason for Referral * Imaging (Routine) - Closed Specialty Diagnoses / Procedures Referred By Contron t Referred To Contact Radiology Diagnoses Right inguinal hernia Procedures Us Pelvis complete Kimberly Fay MD [address] [place] [address] Phone: tel: fax: [facility] fax: Referral ID Status Reason Start Date Expiration Date Visits Re quested Visits Authorized [id number] Closed 12/19/2022 12/19/2023 1 1 Encounter Details Date Type Department Care Team ([facility] st Contact Info) Description 12/19/2022 Orders Only [facility] CH[facility] MED & PEDS [address] [place] [address] Kimberly Fay MD [address] [place] [address] Right inguinal hernia (Primary Dx) Social History Tobacco Use Types Packs/Day Years Used Date Smoking Tobacco: Former Cigarettes 1.5 20 Passive Smoke Exposure: Never Smokeless Tobacco: Current Snuff Comments:Stopped 2017 Alcohol Use Standard Drinks/Week Comments Never 0 (1 standard drink = 0.6 oz pur e alcohol) Depression Answer Date Recorded Patient Health Questionnaire-9 Score 3 03/29/2022 Depression Answer Date Recorded Patient Health Questionnaire-2 [...] Description 06/07/2024 11:00 AM EDT Clinical Support [facility] [address] [place] [address] Randi Porter, ADELINA Scheduled Orders Name Type Priority Associated Diagnoses Orde r Schedule Us Pelvis complete Imaging Routine Right inguinal hernia Expected: 12/19/2022, Expires: 12/20/2023 documented as of this encounter Visit Diagnoses Diagnosis Right inguinal hernia- Primary Inguinal hernia without mention of obstruction or gangrene, unilateral or unspecified, (not specified as recurrent) documented in this encounter Additional Health Concerns Assessment Noted Time PHQ-9 Depression Total Score: 3 03/29/19 23 1:20 PM EST documented as of this encounter Care Teams Title Officer Relationship Specialty Start Date End Date Kimberly Fay MD [address] [place] [id number] PCP - General Family Medicine 06/24/12 documented as of this encounter
--- OUTSIDE RECORDS SUMMARY | 2024-05-11 13:17 | XMS_ITS | Encounter Summary ---
Author Organization [employer] Address [address] [place] [address] Care Team Providers Care Maintenance Helper Utility Engineer Name Role Phone Kimberly Fay MD Primary Care Provider [phone] Reason for Visit * Reason Comments Med Refill Encounter Details Date Type Department Care Team ([facility] Contact Info) Description 05/08/2024 Refill [facility] CH[facility] MED & PEDS [address] [place], [place] [phone] Kimberly Fay MD [address] [place] [address] Social History Tobacco Use Types Packs/Day Years [...] 11:00 AM EDT Clinical Support [facility]ED[facility] [address] [place] [address] Randi Porter RN documented as of this encounter Visit Diagnoses Not on filedocumented in this encounter Additional Health Concerns Assessment Noted Time PHQ-9 Depression Total Score: 3 03/29/19 23 1:20 PM EST documented as of this encounter Care Teams Maintenance Helper Utility Engineer Relationship Specialty Start Date End Date Kimberly Fay MD [address] [place] [id number] PCP - General Family Medicine 06/24/12 documented as of this encounter
--- OUTSIDE RECORDS SUMMARY | 2024-05-11 13:17 | XMS_ITS | Encounter Summary ---
Author Organization [employer] Address [address] [place] [address] Care Team Providers Care Campaign Marketing Manager Name Role Phone Kimberly Fay MD Primary Care Provider [phone] Reason for Visit * Reason Comments Med Refill Encounter Details Date Type Department Care Team ([facility] Contact Info) Description 03/16/2024 Refill [facility] CH[facility] MED & PEDS [address] [place], [place] [phone] Kimberly Fay MD [address] [place] [address] Social History Tobacco Use Types Packs/Day Years [...] 06/07/2024 11:00 AM EDT Clinical Support [facility] [address] [place] [address] Randi Porter RN documented as of this encounter Visit Diagnoses Not on filedocumented in this encounter Additional Health Concerns Assessment Noted Time PHQ-9 Depression Total Score: 3 03/29/19 23 1:20 PM EST documented as of this encounter Care Teams Campaign Marketing Manager Relationship Specialty Start Date End Date Kimberly Fay MD [address] [place] [phone] PCP - General Family Medicine 06/24/12 documented as of this encounter
--- OUTSIDE RECORDS SUMMARY | 2024-05-11 13:17 | XMS_ITS | Encounter Summary ---
Author Organization [employer] Address [address] [place] [address] Care Team Providers Care Staff Assistant Name Role Phone Kimberly Fay MD Primary Care Provider [phone] Reason for Visit * Reason Comments Med Change Request Encounter Details Date Type Department Care Team ([facility] Contact Info) Description 11/15/2022 Refill [facility] MED & PEDS [address] [place] [address] Kimberly Fay MD [address] [place] [address] Social History Tobacco Use Types Packs/Day Years Used Date Smoking Tobacco: Former Cigarettes 1.5 20 Passive Smoke Exposure: Never Smokeless Tobacco: Former Comments:Stopped 2017 Alcohol Use Standard Drinks/Week Comments [...] Encounters Date Type Department Care Team (Late Contact Info) Description 06/07/2024 11:00 AM EDT Clinical Support [facility] MED & PEDS [address] [place] [address] Randi Porter, RN documented as of this encounter Visit Diagnoses Not on filedocumented in this encounter Additional Health Concerns Assessment Noted Time PHQ-9 Depression Total Score: 3 03/29/19 23 1:20 PM EST documented as of this encounter Care Teams Staff Assistant Relationship Specialty Start Date End Date Kimberly Fay MD [address] [place] [address] PCP - General Family Medicine 06/24/12 documented as of this encounter
--- OUTSIDE RECORDS SUMMARY | 2024-05-11 13:17 | XMS_ITS | Encounter Summary ---
Author Organization [email or web address] Address [address] [place] [address] Care Team Providers Care Baseball Glove Shaper Name Role Phone Kimberly Fay MD Primary Care Provider [phone] Reason for Visit * Reason Onset Date Comments Nurse Triage 11/12/2022 Encounter Details Date Type Department Care Team ([facility] st Contact Info) Description 11/12/2022 Telephone [facility] MEDICINE [address] [place] [address] Kimberly Fay MD [address] [place] [address] Nurse Triage Social History Tobacco Use Types Packs/Day Years Used Date Smoking Tobacco: Former Cigarettes 1.5 20 Passive Smoke Exposure: Never Smokeless Tobacco: Former Comments:Stopped 2016 Alcohol Use Standard Drinks/Week Comments Never 0 [...] encounter Miscellaneous Notes * Telephone Encounter - Paulette Tolbert RN - 11/12/2022 3:19 PM EDT Triage call Pt reports some increased urinary frequency and slight odor. Pt denies back pain or fever. Pt drinks four cups of water /day and advised Pt to increase to 8 glasses of liquid daily may include some cranberry juice and Pt agreed. Pt reports has hx of DM in family. Apt with PCP 11/15/22 @ 1115AM . Insurance is verified as active prior to booking. Protocol Used: Urinary Symptoms (Adult) Protocol-Based Disposition: See in Office or Video Visit within 2 Weeks Positive Triage Question: * All other urine symptoms * All higher-acuity triage questions were negative Care Advice Discussed: * Reasons To Call Back - Fever occurs - Pain or burning with urination - You become worse * Telephone Encounter - Macie Shaffer - 11/12/2022 3:02 PM EDT Symptom: Urine Symptoms Outcome: Schedule a same-day appointment or talk to a nurse or provider today Reason: states has been urination more than usually also would like lab work The caller accepted this outcome Please contact at [phone] documented in this encounter Plan of Treatment Upcoming Encounters Date Type Department Care Team (Late st Contact Info) Description 06/07/2024 11:00 AM EDT Clinical Support [facility] MED [facility]S [address] [place] [address] Randi Porter, RN documented as of this encounter Visit Diagnoses Not on filedocumented in this encounter Additional Health Concerns Assessment Noted Time PHQ-9 Depression Total Score: 3 03/29/19 23 1:20 PM EST documented as of this encounter Care Teams Baseball Glove Shaper Relationship Specialty Start Date End Date Kimberly Fay MD [address] [place] [id number] PCP - General Family Medicine 06/24/12 documented as of this encounter
--- OUTSIDE RECORDS SUMMARY | 2024-05-11 13:17 | XMS_ITS | Encounter Summary ---
Author Organization [employer] Address [address] [place] [address] Care Team Providers Care Assembler Musical Equipment Name Role Phone Kimberly Fay MD Primary Care Provider [phone] Reason for Visit * Reason Comments Med Refill Encounter Details Date Type Department Care Team ([facility] st Contact Info) Description 06/23/2022 Refill [facility] D[facility] [address] [place] [address] Alexandro Canales, BDS [address] [place], [place] [phone] Dental caries Social History Tobacco Use Types Packs/Day Years [...] Orientation Straight 01/21/2022 10 :15 AM EDT COVID-19 Exposure Response Date Recorded In the last 10 days, have yo u been in contact with someone who was confirmed or suspected to have Coronavirus/COVID-19? No / Unsure 06/10/2022 9:37 AM EDT documented as of this encounter Miscellaneous Notes * Telephone Encounter - Deviprasad Makonahally, BDS - 07/24/2022 4:52 PM EDT Approving, but needs appt for additional refills. documented in this encounter Plan of Treatment Upcoming Encounters Date Type Department Care Team (Late st Contact Info) Description 06/07/2024 11:00 AM EDT Clinical Support [facility] PEDS [address] [place] [address] Randi Porter, RN documented as of this encounter Visit Diagnoses Diagnosis Dental caries Unspecified dental caries documented in this encounter Additional Health Concerns Assessment Noted Time PHQ-9 Depression Total Score: 3 03/29/19 23 1:20 PM EST documented as of this encounter Care Teams Assembler Musical Equipment Relationship Specialty Start Date End Date Kimberly Fay MD [address] [place] [id number] PCP - General Family Medicine 06/24/12 documented as of this encounter
--- OUTSIDE RECORDS SUMMARY | 2024-05-11 13:17 | XMS_ITS | Clinical Summary ---
Author Organization [employer] Address [address] [place] [address] Care Team Providers Care Job Service Specialist Name Role Phone Kimberly Fay MD Primary Care Provider [phone] Allergies Active Allergy Reactions Criticality Noted Date Comments Amlodipine Shortness of breath,Palpitations High 10/2022 Medications zolpidem (Ambien) 10 MG tablet Take 10 mg by mouth if needed at bedtime. 03/02/20 22 Active perphenazine 2 MG tablet TAKE 1 TABLET BY MOUTH TWICE A DAY NEEDED FOR VOICES, PARANOIA, AGITATION 03/02/20 22 Active budesonide-formo terol (Symbicort) 160-4.5 MCG/ACT inhaler Inhale 2 puffs every 12 (twelve) hours. 12/14/19 Active albuterol 108 (90 Base) MCG/ACT inhaler INHALE TWO PUFFS FOUR TIMES DAILY 12/14/19 22 Active Denta 5000 Plus 1.1 % creamIndications :Dental caries APPLY A SMALL PEA SIZED AMOUNT AND BRUSH X2 MINUTES, SPIT AND DO NOT RINSE 153 g 09/04/19 Active glucose blood (FREESTYLE LITE) test strip USE TO TEST BLOOD SUGAR TWICE A DAY 100 strip 11 11/16/19 Active TRUEplus Lancets 33G misc USE TO TEST BLOOD SUGAR TWICE A DAY 100 each 11 11/16/19 23 Active Blood Glucose Monitoring Suppl (ONE TOUCH ULTRA 2) w/Device kit 1 each 2 times daily. 1 kit 11/20/19 Active OneTouch Delica Lancets 33G misc 1 each 2 times daily. 100 each 11 11/20/19 23 Active metFORMIN (Glucophage) 500 MG tablet TAKE 1 TABLET (500 MG) BY MOUTH WITH BREAKFAST AND WITH EVENING MEAL 180 tablet 3 07/28/19 24 025 Active glucose blood (OneTouch Ultra) test stripIndications :Type 2 diabetes mellitus without complication, without long-term current use of insulin (CMS/HCC) TEST TWO TIMES A DAY 100 strip 11 12/23/19 24 Active Diclofenac Sodium (Voltaren) 1 % gel Use BID 100 g 11 02/09/20 24 Active lisinopril 40 MG tabletIndication s:Essential (primary) hypertension TAKE 1 TABLET BY MOUTH EVERY DAY 90 tablet 3 03/09/20 24 Active Buprenorphine HCl-Naloxone HCl (Suboxone) 8-2 MG SL filmIndications: Opioid type dependence, continuous (CMS/HCC) Place 2 Film under the tongue Once per day. Do not start before April 09, 2024. 56 Film 1 04/09/19 25 025 Active GaviLAX 17 GM/SCOOP powder MIX AND DRINK 17 GRAMS BY MOUTH ONCE PER DAY 510 g 05/11/19 25 Active cloNIDine (Catapres) 0.1 MG tabletIndication s:Primary hypertension TAKE 1 TABLET BY MOUTH TWICE A DAY 180 tablet 1 05/11/19 25 Active cloNIDine (Catapres) 0.1 MG tabletIndication s:Primary hypertension Take 1 tablet (0.1 mg) by mouth if needed each day for high blood pressure. 30 tablet 11 11/12/19 24 025 Discontinued GaviLAX 17 GM/SCOOP powder MIX AND DRINK 17 GRAMS BY MOUTH ONCE PER DAY 510 g 03/09/20 24 025 Discontinued Active Problems Problem Noted Date Diagnosed Date Dental caries 04/28/2023 Type 2 diabetes mellitus wit hout complication, without long-term current use of insulin 12/17/2022 Primary hypertension 03/29/2022 Assessment & Plan (03/29/2022 1:22 PM EST): Uncontrolled. Will add CCB to MEG-I, target < 140/90 mmHg, recommend followup with PCP, scheduled appt Syncope and collapse 05/10/2011 Combined drug dependence excluding opioids 05/07 Arthropathy 04/09/2011 Bipolar disorder 04/09/2011 Psychotic disorder 12/11/2010 Encounters Date Type Department Care Team Description 05/08/2024 Refill [facility] [address] [place] [address] Pedro Gallegos MD Primary hypertension 05/08/2024 Refill [facility] [address] [place] [address] Kimberly Fay MD 04/09/2024 Telephone [facility] [address] [place] [address] Kimberly Fay MD Returning call 04/06/2024 2:45 PM EST Office Visit [facility] [address] [place] [address] Jerman Silva MD Other chest pain (Primary Dx); Type 2 diabetes mellitus without complication, without long-term current use of insulin (CMS/HCC) 04/05/2024 10:45 AM EST Office Visit [facility] [address] [place] [address] Quan Fairchild MD Opioid type dependence, continuous (CMS/HCC) (Primary Dx) 04/05/2024 Travel 03/30/2024 Refill [facility] [address] [place] [address] Randi Porter, RN Opioid type dependence, continuous (CMS/HCC) 03/16/2024 Refill [facility] [address] [place] [address] Kimberly Fay MD 03/15/2024 Telephone [facility] [address] [place] [address] Kimberly Fay MD Nurse Triage 03/08/2024 Refill [facility] [address] [place] [address] Kimberly Fay MD Essential (primary) hypertension 02/16/2024 11:30 AM EST Office Visit [facility] [address] [place] [address] Quan Fairchild MD Opioid type dependence, continuous (CMS/HCC) 02/16/2024 Telephone [facility] [address] [place] [address] Kimberly Fay MD PRE OP 02/16/2024 Travel 02/13/2024 Telephone [facility] [address] [facility] [place] [address] Kimberly Fay MD Medication Question 02/12/2024 Refill [facility]S [address] [place] [address] Kimberly Fay MD 02/11/2024 Refill [facility] [address] [place] [address] Kimberly Fay MD 02/09/2024 10:00 AM EST Office Visit [facility] [address] [place] [address] Kimberly Fay MD Primary hypertension (Primary Dx); Type 2 diabetes mellitus without complication, without long-term current use of insulin ([facility]) 02/09/2024 Travel from Last 3 Months Immunizations Name Administration Dates Next Due Hep A, Adult 11/17/2008,06/14/2008,04/05/2008 Hep B, adult 11/17/2008,06/14/2008,04/05/2008 Influenza injectable quadriv alent IIV4 with preservative 12/12/2016,01/05/2016,03/07/2015 Influenza, IIV3, injectable 11/20/2012 Influenza, Split (incl. heather fied surface antigen) 12/03/2011 Pneumococcal Polysaccharide PPSV23 12/06/2011 TD (adult), 2 Lf tetanus tox oid, preservative free, adsorbed 03/24/1996 Tdap 01/05/2016 Social History Tobacco Use Types Packs/Day Years Used Date Smoking Tobacco: Former Cigarettes 1.5 20 Q uit: 2017 Passive Smoke Exposure: Never Smokeless Tobacco: Former Snuff Tobacco Cessation:Counseling Given: Yes Comments:Stopped 2016 Alcohol Use Standard Drinks/Week Comments [...] Orientation Straight 01/21/2022 10 :15 AM EDT Last Filed Vital Signs Vital Sign Reading Time Taken Comments Blood Pressure 117/77 04/06/2024 3:05 PM EST Pulse 91 04/06/2024 3:05 PM EST Temperature 36.9 ??C (98.4 ??F) 04/06/2024 3:05 PM ES T Respiratory Rate 20 04/06/2024 3:05 PM EST Oxygen Saturation 99% 04/06/2024 3:05 PM EST Inhaled Oxygen Concentration - - Weight 74.4 kg (164 lb) 04/06/2024 3:05 PM EST Height 158.8 cm (5' 2.5 ) 04/06/2024 3:05 PM EST Body Mass Index 29.52 04/06/2024 3:05 PM EST Plan of Treatment Upcoming Encounters Date Type Department Care Team (Late st Contact Info) Description 06/07/2024 11:00 AM EDT Clinical Support [facility] [address] [place] [address] Randi Porter, RN Health Maintenance Due Date Last Done Comments CT Colonography 1958 Colonoscopy 1958 Colorectal Cancer Screening 1958 Dental X-Ray: Bitewings 1958 FIT DNA/Cologuard 1958 FIT 1958 FOBT 1958 Sigmoidoscopy 1958 Eye Exam 01/14/1968 Hepatitis C Screening 01/14/1976 Lung Cancer Screening 01/14/2008 Zoster Vaccines (1 of 2) 01/14/2008 Pneumococcal Vaccine: 50+ Years (2 of 2 - PCV) 12/05/2012 12/06/2011 Depression Screening 03/29/2023 03/29/2022, 03/29/19 Dental Oral Exam 10/02/2023 04/02/2023 Dental Prophylaxis 10/02/2023 04/02/2023 Diabetes: Urine Protein Screening 12/18/2023 12/17/2022 SDOH Screening 06/01/2024 06/02/2023 Diabetes: Hemoglobin A1C 08/08/2024 024, 02/09/2024, 11/12/2023, Additional history exists Influenza Vaccine (#1) 2024 7, 01/05/2016, 03/07/2015, Additional history exists Postponed from 11/23/2023 (Patient Refused) Alcohol/Substance Use Screening 02/08/2025 02/09/2024 COVID-19 Vaccine ( season) 2025 Postponed from 11/23/2023 (Patient Refused) Diabetes: Foot Exam 02/08/2025 02/09/2024, 02/09/2024, 02/09/2024, Additional history exists Lipid Panel 02/08/2025 02/09/2024, 0309/2023, 05/27/2022, Additional history exists Tobacco Screening 04/06/2025 04/06/2024 DTaP/Tdap/Td Vaccines (2 - Td or Tdap) 01/04/2026 01/05/2016, 03/24/1996 Dental X-Ray: Full Mouth 04/03/2026 04/02/2023 RSV Patients and Patients Aged 60 years or older (1 - 1-dose 75+ series) 2033 Hepatitis A Vaccines Aged Out 11/17/2008, 06/14/2008, 04/05/2008 No longer eligible based on patient's age to complete this topic Hepatitis B Vaccines Completed 11/17/2008, 06/14/2008, 04/05/2008 HIB Vaccines Aged Out No longer eligi ble based on patient's age to complete this topic HPV Vaccines Aged Out No longer eligi ble based on patient's age to complete this topic IPV Vaccines Aged Out No longer eligi ble based on patient's age to complete this topic Meningococcal Vaccine Aged Out No dori brenna eligible based on patient's age to complete this topic RSV under 20 months Aged Out No longe r eligible based on patient's age to complete this topic Rotavirus Vaccines Aged Out No longer eligible based on patient's age to complete this topic Procedures Procedure Name Priority Date/Time Associated Diagnosis Comments ECG 12-LEAD Routine 04/07/2024 9:59 AM EST Other chest pain POCT GLUCOSE Routine 04/06/2024 3:06 PM EST Type 2 diabetes mellitus without complication, without long-term current use of insulin (CMS/HCC) POCT LB-14 URINE DRUG SCREEN Routine 04/05/2024 10:43 AM EST Opioid type dependence, continuous (CMS/HCC) POCT LB-14 URINE DRUG SCREEN Routine 02/16/2024 11:18 AM EST Opioid type dependence, continuous (CMS/HCC) HEPATIC FUNCTION PANEL Routine 02/09/2024 10:31 AM EST Primary hypertension Type 2 diabetes mellitus without complication, without long-term current use of insulin (CMS/HCC) LIPID PANEL, STANDARD Routine 02/09/2024 10:31 AM EST Primary hypertension Type 2 diabetes mellitus without complication, without long-term current use of insulin (CMS/HCC) BASIC METABOLIC PANEL Routine 02/09/2024 10:31 AM EST Primary hypertension Type 2 diabetes mellitus without complication, without long-term current use of insulin (CMS/HCC) HEMOGLOBIN A1C Routine 02/09/2024 10:31 AM EST Type 2 diabetes mellitus without complication, without long-term current use of insulin ([facility]) POCT GLYCATED HEMOGLOBIN, TOTAL Routine 02/09/2024 10:00 AM EST Type 2 diabetes mellitus without complication, without long-term current use of insulin ([facility]) POCT GLUCOSE Routine 02/09/2024 10:00 AM EST Type 2 diabetes mellitus without complication, without long-term current use of insulin ([facility]) PROPHYLAXIS - ADULT Routine 04/02/2023 1 0:00 AM EST PANORAMIC RADIOGRAPHIC IMAGE Routine 04/02/2023 10:00 AM EST PERIODIC ORAL EVALUATION - ESTABLISHED PATIENT Routine 04/02/2023 10:00 AM EST ALBUMIN, RANDOM URINE W/CREATININE Routine 12/17/2022 9:40 AM EDT from Last 3 Months or Most Recently Relevant to Health Maintenance Results * ECG 12 lead (04/07/2024 9:59 AM EST) Narrative Jerman Silva MD - 04/07/2024 9:59 AM EST Heart rate 88 bpm. ??[place] -51. ??LAFB. ??Sinus rhythm. ??RSR' in V2. ??No sign of left atrial enlargement or right atrial enlargement. ??No hypertrophy. ?? No ST elevation or ST depression. us Jerman Silva MD ECG ORDERABLES Final Resul t * POCT Glucose (04/06/2024 3:06 PM EST) Only the most recent of2 resultswithin the time period is included. [facility] Signature Glucose Blood, POC 178 60 - 200 mg/dL Comment:Random QC Media Lot # [id number] Lot# Expiration Date [id number] Blood Capillary blood specimen / Unknown 04/06/2024 3:06 PM EST us Jerman Silva MD POINT OF CARE TEST ENTER/ED IT ORDERABLES Final Result * POCT LB-14 Urine Drug Screen (04/05/2024 10:43 AM EST) Only the most recent of2 resultswithin the time period is included. THC Negative Cocaine Screen, Urine Negative Opiate Screen, Urine Negative Methamphetamine Screen Urine Negative Amphetamine Screen, Urine Negative Benzodiazepines Screen, Urine Negative Barbiturate Screen, Urine Negative Methadone Screen, Urine Negative Buprenophine Screen, Urine Positive TCA, Urine Negative MDMA Urine Negative ng/mL Oxycodone Screen, Urine Negative Phencyclidine (PCP), Urine Negative Propoxyphene, Urine Negative Urine Urine specimen obtained by clean catch procedure / Unknown 04/05/2024 10:43 AM EST Quan Fairchild MD POINT OF CARE TEST ENTER/EDIT OR DERABLES Final Result * Hemoglobin A1c (02/09/2024 10:31 AM EST) Hemoglobin A1c 5.6 <6.0 % [facility] Comment:Hemoglobin A1C Refer ence Range Adults: 4.8 - 6.0 % Non diabetic: < 6.0 % Goal: < 7.0 %Additional Action Suggested: > 8.0 %Note: Hemoglobin A1c results are invalid for patients with abnormal amounts of HbF. Blood transfusions may impact the HbA1c concentration in the patient sample. Estimated Average Glucose 114 mg/dL [facility] Comment:eAG = Estimated ave rage glucose which is %A1C expressed asaverage glucose, using the formula of the [id number] Glucose study (ADAG), Diabetes Care, Vol.31,#8,Oct. 2007 Blood Venous blood specimen / Unknown 02/09/2024 10:31 AM EST 02/09/2024 2:04 PM EST us Kimberly Fay MD LAB BLOOD ORDERABLES Final Resul t [facility] [address] [place] [phone] * (ABNORMAL) Hepatic Function Panel (02/09/2024 10:31 AM EST) Bilirubin, Total 1.8(H) 0.0 - 1.0 mg/dL [facility] Bilirubin, Direct 0.5 0.0 - 0.5 mg/dL [facility] Aspartate Amino Transferase 30 5 - 37 U/L [facility] Alanine Aminotransferase 12 0 - 40 U/L [facility] Total Protein 7.3 6.5 - 8.0 g/dL [facility] Albumin Level 4.2 3.5 - 5.0 g/dL [facility] Alkaline Phosphatase 57 39 - 117 U/L [facility] Blood Venous blood specimen / Unknown 02/09/2024 10:31 AM EST 02/09/2024 2:04 PM EST us Kimberly Fay MD LAB BLOOD ORDERABLES Final Resul t [facility] [address] [place] [phone] [phone] * (ABNORMAL) Lipid Panel, Standard (02/09/2024 10:31 AM EST) Triglycerides 118 <150 mg/dL [facility] Comment:Desirable Triglyceri de: less than 150 mg/dLBorderline High Triglyceride 150-199 mg/dLHigh Triglyceride: 200-499 mg/dLVery High Triglyceride: greater than or equal to 5OO mg/dL Cholesterol 185 <200 mg/dL [facility] Comment:Desirable Cholestero l: less than 200 mg/dLBorderline High Cholesterol: 200-239 mg/dLHigh Cholesterol: greater than 239 mg/dL LDL Cholesterol Calculated 126(H) <100 mg/dL [facility] Comment:Desirable LDL: less than 100 mg/dLNear Optimal/Above Optimal LDL: 110- 129 mg/dLBorderline High LDL: 130-159 mg/dLHigh LDL: 160-189 mg/dLVery High LDL: greater than or equal to 190 mg/dL HDL Cholesterol 36(L) >40 mg/dL [facility] Comment:Desirable HDL: great er than 40 mg/dL Note: This HDL assay may give artificially low results in patients with liver disease. Blood Venous blood specimen / Unknown 02/09/2024 10:31 AM EST 02/09/2024 2:04 PM EST Kimberly Fay MD LAB BLOOD ORDERABLES Final Resul t Performing Organization Address [facility] Co de Phone Number [facility] [address] [place] [phone] * (ABNORMAL) Basic Metabolic Panel (02/09/2024 10:31 AM EST) Sodium 141 135 - 145 mmol/L [facility] Potassium 4.2 3.3 - 5.1 mmol/L [facility] Chloride 107 96 - 108 mmol/L [facility] Carbon Dioxide 28 22 - 29 mmol/L [facility] Anion Gap 10(L) 12 - 20 [facility] Urea Nitrogen (BUN) 12 9 - 16 mg/dL [facility] Creatinine, Serum 0.96 0.5 - 1.4 mg/dL [facility] Estimated Glomerular Filt Rate >60 [facility] Comment:Chronic Kidney Disea se: Estimated GFR < 60 mL/min/[id number] Kidney Disease: Estimated GFR < 15 mL/min/1.73m2 Glucose 98 60 - 115 mg/dL [facility] Calcium 9.1 8.4 - 10.2 mg/dL [facility] Blood Venous blood specimen / Unknown 02/09/2024 10:31 AM EST 02/09/2024 2:04 PM EST Kimberly Fay MD LAB BLOOD ORDERABLES Final Resul t Performing Organization Address [facility]/ZIP Co de Phone Number [facility] [address] [place] [address] [phone] * POCT HGB A1C (02/09/2024 10:00 AM EST) Hemoglobin A1C 5.5 4.0 - 6.0 % QC Media Lot # [id number] Lot# Expiration Date [id number] Blood 02/09/2024 10:0 0 AM EST Kimberly Fay MD POINT OF CARE TEST ENTER/EDIT OR DERABLES Final Result * Albumin, Random Urine W/Creatinine (12/17/2022 9:40 AM EDT) Creatinine, Urine 248.22 mg/dL [facility] Microalbumin Urine 9.0 mg/L [facility] Microalbum Creatinine Ratio Ur 3.6 <30 ug/mg cr [facility] Comment:Albumin/Creatinine R atio Reference Ranges: Normal: < 30 ug/mg creatinine Microalbuminuria: 30 - 300 ug/mg creatinineClinical Albuminuria: > 300 ug/mg creatinine 12/17/2022 9:40 AM EDT 12/17/2022 2:43 PM EDT Kimberly Fay MD LAB URINE ORDERABLES Final Resul t Performing Organization Address City/State/[facility] Co de Phone Number [facility] [address] [place] [phone] from Last 3 Months or Most Recently Relevant to Health Maintenance Insurance [facility] Care Teams Job Service Specialist Relationship Specialty Start Date End Date Kimberly Fay MD [address] [place] [phone] PCP - General Family Medicine 06/24/12
--- OUTSIDE RECORDS SUMMARY | 2024-05-11 13:17 | XMS_ITS | Encounter Summary ---
Author Organization [employer] Address [address] [place] [address] Care Team Providers Care Multimedia Manager Name Role Phone Kimberly Fay MD Primary Care Provider [phone] Reason for Visit * Reason Comments Med Refill Encounter Details Date Type Department Care Team ([facility] Contact Info) Description 02/11/2024 Refill [facility] [address] [place], [place] [phone] Kimberly Fay MD [address] [place] [address] Social History Tobacco Use Types Packs/Day Years [...] Description 06/07/2024 11:00 AM EDT Clinical Support [facility] [address] [place] [address] Randi Porter RN documented as of this encounter Visit Diagnoses Not on filedocumented in this encounter Additional Health Concerns Assessment Noted Time PHQ-9 Depression Total Score: 3 03/29/19 23 1:20 PM EST documented as of this encounter Care Teams Multimedia Manager Relationship Specialty Start Date End Date Kimberly Fay MD [address] [place] [phone] PCP - General Family Medicine 06/24/12 documented as of this encounter
--- OUTSIDE RECORDS SUMMARY | 2024-05-11 13:17 | XMS_ITS | Encounter Summary ---
Author Organization [employer] Address [address] [place] [address] Care Team Providers Care Ruby Software Developer Name Role Phone Kimberly Fay MD Primary Care Provider [phone] Reason for Visit * Reason Comments Med Refill Encounter Details Date Type Department Care Team ([facility] Contact Info) Description 07/20/2023 Refill [facility] [address] [place], [place] [phone] Kimberly Fay MD [address] [place] [address] Social History Tobacco Use Types Packs/Day Years [...] Description 06/07/2024 11:00 AM EDT Clinical Support [facility] [address] [place] [address] Randi Porter, RN documented as of this encounter Visit Diagnoses Not on filedocumented in this encounter Additional Health Concerns Assessment Noted Time PHQ-9 Depression Total Score: 3 03/29/19 23 1:20 PM EST documented as of this encounter Care Teams Ruby Software Developer Relationship Specialty Start Date End Date Kimberly Fay MD [address] [place] [phone] PCP - General Family Medicine 06/24/12 documented as of this encounter
--- OUTSIDE RECORDS SUMMARY | 2024-05-11 13:17 | XMS_ITS | Encounter Summary ---
Author Organization [employer] Address [address] [place] [address] Care Team Providers Care Lens Polisher Name Role Phone Kimberly Fay MD Primary Care Provider [phone] Reason for Visit * Reason Comments Med Change Request Encounter Details Date Type Department Care Team ([facility] Contact Info) Description 11/16/2022 Refill [facility]EDS [address] [place] [address] Kimberly Fay MD [address] [place] [address] Social History Tobacco Use Types Packs/Day Years [...] Description 06/07/2024 11:00 AM EDT Clinical Support [facility]S [address] [place] [address] Randi Porter, RN documented as of this encounter Visit Diagnoses Not on filedocumented in this encounter Additional Health Concerns Assessment Noted Time PHQ-9 Depression Total Score: 3 03/29/19 23 1:20 PM EST documented as of this encounter Care Teams Lens Polisher Relationship Specialty Start Date End Date Kimberly Fay MD [address] [place] [address] PCP - General Family Medicine 06/24/12 documented as of this encounter
--- OUTSIDE RECORDS SUMMARY | 2024-05-11 13:17 | XMS_ITS | Data Portability ---
Author Organization [employer] [place], [place] - [place] Address [address] [place] [id number] Care Team Providers Care Leather Tanner Name Role Phone HIM CCA OTHER Assessment No assessment recorded. Plan of Treatment Reminders Order Date Submit Date Provider Last Modified By Organization Details Last Modified Time Details Appointments None recorded. Lab BMP, serum or plasma [address], [address] [place] [address], [id number], 10:35:15 Referral None recorded. Procedures None recorded. Surgeries None recorded. Imaging electrocard iogram [address], [address] [place] [address], [phone], 4 10:35:16 Medication Orders hydrochloro thiazide 12.5 mg tablet 2023 [facility]armacy #[id number], [address] [place], [address], 10:34:55 Patient TargetsNo targets recorded. Patient InstructionsNo instructions recorded. Reason for Referral None Reported. Results Created Date Observation Date Name Description Value Unit Range Abnormal Flag Note LastModifiedBy Organization Detail LastModifiedTime 01/12/20 24 elect rocar diogr am No observ ation record ed. [address], [id number], 01/12/2024 10:35:06 Result Notes None recorded. Procedures Surgical History None recorded. Imaging Results Imaging Date Name Status LastModified by Organization Details LastModified Time 01/12/2024 electrocardiogram completed [address], [address], 01/12/2024 10:35:06 Procedure Notes None recorded. Medical [...] Diagnosis/Indication Diagnosis SNOMED-CT Code Diagnosis ICD10 Code Diagnosis Note [id number] Jerri Jeffries MD Main - instED [address] [place] [address] 01/12/2024 10:23:33 2024 10:31:35 Essential hypertension [id number] I10 Evaluation in the field was performed by my sales manager prearranged funerals colleague, as noted above, I provided real-time direction and supervisio n for this visit. 63yo M PMHx chronic HTN, glaucoma p/w concern for elevated BPs. Taking lisiopril 40 mg and clonidine 0.1-0.2 mg bid prn elevated BP and has noted BPs in 160s/100s. Endorses chronic LE edema, no dyspnea, no anginal CP. Does endorse intermitte nt COATES and nausea but not clearly related to BP. On sales manager prearranged funerals eval BP 150/87 rest wnl, exam with 1+ b/l pitting edema. POC electrolyt es w/ normal Cr, K, Na. EKG with LAD no ST elevations . Suspects intermitte nt rebound HTN from clonidine which is not an ideal prn BP meds. Instructed pt to stop clonidine and start HCTZ 12.5 mg and call PCP for sooner f/up (scheduled for next month). Red flags reviewed. For PCP: please consider earlier appt to recheck BP and reassess electrolyt es. Also consider further work up of intermitte nt COATES and nausea. We discussed the diagnostic uncertaint y of home visits and the risk associated with this. In this case, the patient and I felt this to be an acceptable and reasonable amount of risk given the benefit of avoiding an ED visit. We discussed the need to seek care urgently/e mergently in the setting of any new or worsening serious symptoms, shortness of breath, cough, chest pain, fever. Health Concerns Section Related Observation LastModified by Organization Detai ls LastModified Time None Recorded Concern Status LastModified by Organization Details LastModified Time None Recorded Advance Directives Directive None Recorded Payers Encounter Date Sequence Insurance Name Policy Number Policy Tavarez Covered Member ID Tavarez Member ID Guarantor Name 01/12/2024 1 [facility] - DOS ON OR AFTER 2022 - DUAL ELIGIBLE - HALF-WAY OPTIONS AND ONE CARE (MEDICARE REPLACEMENT/ADV ANTAGE - HMO) Juvenal Morataya [id number] Juvneal Morataya Notes Date Note Type Note Provider Name and Address Organization Details Recorded Time 01/12/2024 text/html CRC Nurse Triage Notes (Felicia Diaz): Reason For Request: Patient is having Blood Pressure problems, seems high, and fluctuating Chief Complaints: Hypertension PMH: Hypertension, COPD/Asthma Other Allergies: one that was an eye drop unsure the name Comments: Field Training Manager verified the member's name//address and phone number. [...] s/s and seek emergency treatment if needed Budget Report Clerk Organization Information for [employer] Business Legal Name: [facility] Transportation Address: [address] [place] [address], [id number], Direct Entry Midwife: Jalil Pina MD CLIA No.: [id number] Budget Report Clerk POC Test Results from [employer] EKG [...] .................... .................... .................... .................... .................... .................... . Budget Report Clerk Note From [employer]: Pt with hx [...] .................... . Disposition: Fulfilled Jerri Jeffries MD [address] [facility],[address], [place], [address], [employer] 01/12/2024 11:47:27
== END ==
LOC: HO.CARD 12:25
PROVIDERS: PCP Student in an Organized Health Care Education/Training Program; Visit Provider Internal Medicine
DX: R07.89 Other chest pain (principal)
CPT/HCPCS: 93306

== ENCOUNTER → 2024-05-11 13:00 | Outpatient (BNV) | payer OTHER, SELFPAY | PROVIDERS: PCP Student in an Organized Health Care Education/Training Program; Visit Provider Internal Medicine | DX: R07.89 Other chest pain (principal) | CPT/HCPCS: 93306 ==

== ENCOUNTER 2024-05-14 14:51 | Outpatient (AMB) | payer OTHER, SELFPAY ==
[2024-05-14 15:01] VITALS: BP 116/70; PULSE 68; BMI 29.5
--- NOTE | 2024-05-14 15:01 | MHC.OFFVIS ---
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 He also needs preoperative risk stratification for hernia surgery. Per PCP note, he had reported exertional chest pain. However, he gives me a somewhat of a different history. He describes the discomfort in the epigastric area which is more so when he is standing or walking but improves when he is lying down. He describes rather positional change when the pain starts with standing and then as he lies down it feels better. Not entirely suggestive of angina. No documented coronary disease or myocardial infarction. [facility] Medical History (Updated 05/14/24 @ 15:23 by Zack Valenzuela MD) Hx of renal calculi Depression Anxiety Insomnia COPD (chronic obstructive pulmonary disease) Murmur, cardiac Hx of hepatitis C Left inguinal hernia Right inguinal hernia Bipolar affective disorder in remission Type 2 diabetes mellitus HTN (hypertension) Surgical History (Updated 05/14/24 @ 15:06 by Carolina Awad CMA) History of hernia surgery Hx of shoulder surgery Hx of left inguinal hernia repair History of right hip replacement Family History (Updated 05/14/24 @ 15:07 by Carolina Awad CMA) Maternal Grandmother DM2 (diabetes mellitus, type 2) Brother Diabetes mellitus type 1 Sister Diabetes mellitus type 1 Social History (Updated 05/14/24 @ 15:08 by Carolina Awad CMA) Are you a primary healthcare or medical to a significant other at home: No Do you presently have visiting nurse or other home services: No Alcohol intake: former Patient Tobacco Use Status: Former Tobacco user Tobacco use type: Cigarette Review of Systems Const Denies chills, Denies daytime sleepiness, Denies fatigue, Denies fever(s), Denies poor appetite, Denies snoring, Denies stops breathing during sleep, Denies weakness, Denies weight gain and Denies weight loss Eyes Denies loss of vision ENT Denies dizziness and Denies hearing loss Card Denies chest pain, Denies irregular heart rhythm, Denies claudication, Denies leg edema, Denies lightheadedness, Denies palpitations, Denies dyspnea on exertion and Denies orthopnea Resp Denies cough, Denies excessive phlegm production, Denies dyspnea on exertion, Denies snoring and Denies wheezing GI Denies abdominal pain, Denies hematochezia, Denies change in bowel habits, Denies nausea and Denies vomiting Denies dysuria and Denies urinary frequency Musc Denies arthralgias, Denies muscle weakness, Denies numbness and Denies other Skin/Breast Denies nail changes and Denies rash Neuro Denies Abnormal speech present, Denies dizziness, Denies loss of vision, Denies memory loss, Denies numbness and Denies weakness Psych Denies depression and Denies memory loss Endo Denies fatigue and Denies palpitations Guru/Lymph Denies easy bruising Aller/Immun Denies wheezing Physical Exam Vital Signs: Last Vital Signs Pulse 68 05/14/24 15:01 BP 116/70 05/14/24 15:01 BMI result Body Mass Index 29.5 Const General: comfortable and no acute distress Orientation/consciousness: patient oriented x3 HEENT Other: Unremarkable Head: Yes normal to inspection Neck Neck: Yes normal visual inspection Chest Chest palpation & inspection: normal inspection of the chest Resp Auscultation: clear to auscultation bilaterally Cardio Palpation: normal PMI Heart sounds: S1 normal heart sound present, S2 normal heart sound present, no gallops, no murmurs and no rubs GI Other: Palpable liver margin Palpation (GI): Soft to palpation Back/Spine/Pelvis Other: unremarkable Skin General skin exam: no rashes or lesions noted Neuro General: patient oriented x3 Speech: No Abnormal speech present Extrem General: Yes normal to inspection Psych Mental Status: mental status grossly normal Office Procedures EKG Details: EKG with underlying sinus rhythm at 68/Min; no significant ST-T changes and otherwise unremarkable[place]. [address]-Vrhiknyeicjyipvvu, Complete Assessment & Plan Assessment & Plan (1) Precordial chest pain: Code(s): R07.2 - Precordial pain Category: Medical Plan Conflicting history regarding his chest/epigastric pain. More so positional unless of exertional but PCP note reflects differently. Hence we will schedule an exercise stress echocardiogram to assess this further. In the transthoracic study, LVEF was 59% without any wall motion abnormalities. Borderline ascending aortic size at 3.8 cm. Orders: Orders CA echo stress exercise Today R07.2 - Precordial pain Coding Level of Care Code New Pt Level 4 (85074) Complex EM visit Add On G2211 Diagnoses Precordial chest pain R07.2 CPT Codes EKG - CPT: 79918-Qjnrlqjurzwqzzvgn, Complete ([id number])
== END 2024-05-14 15:41 | disposition home or self-care (01) ==
PROVIDERS: PCP Student in an Organized Health Care Education/Training Program; Visit Provider Internal Medicine
DX: R07.2 Precordial pain (principal)
CPT/HCPCS: 93010; 99214; G2211

== ENCOUNTER → 2024-05-14 14:51 | Outpatient (BNVA) | payer OTHER, SELFPAY | PROVIDERS: PCP Student in an Organized Health Care Education/Training Program; Visit Provider Internal Medicine | DX: R07.2 Precordial pain (principal) | CPT/HCPCS: 93005; 99212 ==

== ENCOUNTER 2024-06-10 09:41 | Outpatient (REF) | payer OTHER, SELFPAY ==
--- NOTE | ~2024-06-10 | XR_ITS ---
EXAMINATION: XR HIP, LEFT CLINICAL INFORMATION: pain COMPARISON: None available. TECHNIQUE: Two views of the left hip. FINDINGS: The left hip joint space is maintained normal. No bony erosive changes, fracture or dislocation. There are subchondral lucencies along the femoral head. There is minimal lateral acetabular sclerosis and spurring likely early DJD. No loose bodies or joint effusion suspected. 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 Electronically signed by: Luis Angel Ruggiero MD 06/10/2024 10:20 AM EDT
--- OUTSIDE RECORDS SUMMARY | 2024-06-10 10:44 | XMS_ITS | Encounter Summary ---
Author Organization [employer] Address [address] [place] [address] Care Team Providers Care Briquetting Machine Operator Name Role Phone Kimberly Fay MD Primary Care Provider [phone] Encounter Details Date Type Department Care Team ([facility] st Contact Info) Description 06/08/2024 Telephone [facility] [address] [place], [place] [phone] Randi Porter RN Social History Tobacco Use Types Packs/Day Years [...] encounter Miscellaneous Notes * Telephone Encounter - Randi Porter RN - 06/08/2024 4:28 PM EDT After communicating with OBOT provider, we agreed to contact Juvenal and see if he is on board to try an additional 8 mg/day to address his pain. Because of insurance reasons, we will send him 06/22 mgBID. Told Juvenal he will likely receive information from [facility] pharmacy when his script is ready. Hewas grateful for the call. documented in this encounter Plan of Treatment Upcoming Encounters Date Type Department Care Team (Late st Contact Info) Description 08/02/2024 10:00 AM EDT Office Visit [facility] [address] [place] [address] Quan Fairchild MD [address] [place] [address] documented as of this encounter Goals Goal Patient Goal Type Associated Problems Recent Progress Patient-Stated? Author Increase coping skills to promote long-term recovery and improve ability to perform daily activities General No Randi Porter RN documented as of this encounter Visit Diagnoses Not on filedocumented in this encounter Additional Health Concerns Assessment Noted Time PHQ-9 Depression Total Score: 3 03/29/19 23 1:20 PM EST documented as of this encounter Care Teams Briquetting Machine Operator Relationship Specialty Start Date End Date Kimberly Fay MD [address] [place] [address] PCP - General Family Medicine 06/24/12 documented as of this encounter
--- OUTSIDE RECORDS SUMMARY | 2024-06-10 10:44 | XMS_ITS | Encounter Summary ---
Author Organization [employer] Address [address] [place] [address] Care Team Providers Care Slag Worker Name Role Phone Kimberly Fay MD Primary Care Provider [phone] Reason for Referral * Consultation (Urgent) - Pending Review Specialty Diagnoses / Procedures Referred By Contac t Referred To Contact Orthopaedic Surgery Diagnoses Left hip pain Kimberly Fay MD [address] [place] [address] Phone: tel: fax: Referral ID Status Reason Start Date Expiration Date Visits Requested Visits Authorized [id number] Pending Review Specialty Services Required 06/10/2024 06/10/2025 1 1 Reason for Visit * Reason Comments Hip Pain Encounter Details Date Type Department Care Team ([facility] st Contact Info) Description 06/10/2024 9:20 AM EDT Office Visit [facility] [place] [address] [place] [address] Kimberly Fay MD [address] [place] [address] Left hip pain (Primary Dx) Social History Tobacco Use Types [...] AM EDT documented as of this encounter Last Filed Vital Signs Vital Sign Reading Time Taken Comments Blood Pressure 149/90 06/10/2024 9:07 AM EDT Pulse 76 06/10/2024 9:07 AM EDT Temperature 36.7 ??C (98 ??F) 06/10/2024 9:07 AM EDT Respiratory Rate 16 06/10/2024 9:07 AM EDT Oxygen Saturation 98% 06/10/2024 9:07 AM EDT Inhaled Oxygen Concentration - - Weight 76.2 kg (168 lb) 06/10/2024 9:07 AM EDT Height - - Body Mass Index 30.24 04/06/2024 3:05 PM EST documented in this encounter Progress Notes * Kimberly Fay MD - 06/10/2024 9:20 AM EDT Subjective Patient ID: Juvenal Morataya is a 64 y.o. male who presents for Hip Pain. Hip Pain There was no injury mechanism. The pain is present in the left hip. The quality of the pain is described as aching. The pain is at a severity of 7/10. The pain is moderate. The pain has been Fluctuating since onset. Associated symptoms include an inability to bear weight. The symptoms are aggravated by movement and weight bearing. He has tried acetaminophen for the symptoms. The treatment provided mild relief. Review of Systems Constitutional: Negative. Respiratory: Negative. Cardiovascular: Negative. Gastrointestinal: Negative. Genitourinary: Negative. Musculoskeletal: Positive for arthralgias and gait problem. Objective Physical Exam Constitutional: Appearance: Normal appearance. Cardiovascular: Rate and Rhythm: Normal rate and regular rhythm. Pulmonary: Effort: Pulmonary effort is normal. Breath sounds: Normal breath sounds. Musculoskeletal: Left hip: Tenderness, bony tenderness and crepitus present. Neurological: General: No focal deficit present. Mental Status: He is alert. Psychiatric: Mood and Affect: Mood normal. Behavior: Behavior normal. Assessment/Plan Diagnoses and all orders for this visit: Left hip pain Comments: Xray ordered today Advised Ibuprofen and Warm compress Started on Short course of prednisone Will refer to Ortho Orders: - XR Hip 2 or 3 Views Left; Future - Referral to Orthopaedic Surgery; Future Other orders - predniSONE (Deltasone) 20 MG tablet; Take 1 tablet (20 mg) by mouth Once per day for 5 days. documented in this encounter Plan of Treatment Upcoming Encounters Date Type Department Care Team (Late st Contact Info) Description 08/02/2024 10:00 AM EDT Office Visit [facility] [address] [place] [address] Quan Fairchild MD [address] [place] [address] Scheduled Referrals Name Type Priority Associated Diagnoses Order Schedule Referral to Orthopaedic Surgery Outpatient Referral Urgent Left hip pain Expected: 06/10/2024 (Approximate), Expires: 06/10/2025 documented as of this encounter Goals Goal Patient Goal Type Associated Problems Recent Progress Patient-Stated? Author Increase coping skills to promote long-term recovery and improve ability to perform daily activities General No German, Randi, RN documented as of this encounter Procedures Procedure Name Priority Date/Time Associated Diagnosis Comments XR HIP 2 OR 3 VIEWS LEFT Routine 06/10/2024 9:41 AM EDT Left hip pain documented in this encounter Results * XR Hip 2 or 3 Views Left (06/10/2024 9:41 AM EDT) Anatomical Region Laterality Modality Lower Extremities, Hip Left Radiograp hic Imaging 06/10/2024 9:41 AM EDT Narrative 06/10/2024 10:22 AM EDT ?[facility] ?[address] ?[place] [address] ?XRay Report ? Signed ? Patient: Juvenal Morataya ?MR#: [id number] ?? 6 ? : 1960 ?Acct:[id number] ? Age/Sex: 64 / M ?ADM Date: 06/10/24 ? Loc: HO.HHCX ? Attending Dr: Kimberly Fay MD ? Ordering Physician: Kimberly Fay MD ?? Date of Service: 06/10/24 ?? Procedure(s): XR hip LT min 2V ?? Accession Number(s): [id number] ? cc: Kimberly Fay MD ? EXAMINATION: ?? XR HIP, LEFT ? CLINICAL INFORMATION: ?? pain ? COMPARISON: ?? None available. ? TECHNIQUE: ?? Two views of the left hip. ? FINDINGS: ?? The left hip joint space is maintained normal. No bony erosive changes, ?? fracture or dislocation. There are subchondral lucencies along the ?? femoral head. There is minimal lateral acetabular sclerosis and ?? spurring likely early DJD. No loose bodies or joint effusion suspected. ? XR/XR hip LT min 2V ?? IMPRESSION: ?? 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 Electronically signed by: ??Luis Angel Monik MD ??06/10/2024 10:20 AM EDT RP ? Dictated By: ?Monik,Luis Angel S MD ? Signed By: ?<Electronically signed by Luis Angel S Monik, MD in OV> ?06/10/24 1020 ? DD/DT: 06/10/ 0941 ? TD/TT: 06/10/24 1000 ? Dairy Products Maker: MSM ? Procedure Note Laron, Image - 03/20/2025 [facility] [address] [place] [address] XRay Report Signed Patient: Juvenal MoratayaMR#: [id number] 6 : 8Acct:[id number] Age/Sex: 64 / MADM Date: 06/10/24 Loc: HO.HHCX Attending Dr: Kimberly Fay MD Ordering Physician: Kimberly Fay MD Date of Service: 06/10/24 Procedure(s): XR hip LT min 2V Accession Number(s): [id number] cc: Kimberly Fay MD EXAMINATION: XR HIP, LEFT CLINICAL INFORMATION: pain COMPARISON: None available. TECHNIQUE: Two views of the left hip. FINDINGS: The left hip joint space is maintained normal. No bony erosive changes, fracture or dislocation. There are subchondral lucencies along the femoral head. There is minimal lateral acetabular sclerosis and spurring likely early DJD. No loose bodies or joint effusion suspected. 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 Electronically signed by: Luis Angel Ruggiero MD 06/10/2024 10:20 AM EDT Dictated By: Luis Angel Ruggiero MD Signed By: <Electronically signed by Luis Angel Ruggiero MD in OV> 06/10/24 1020 DD/ 0941 TD/TT: 06/10/24 1000 Dairy Products Maker: [facility] Kimberly Fay MD IMG XR PROCEDURES Edited Result - Final documented in this encounter Visit Diagnoses Diagnosis Left hip pain- Primary Pain in joint, pelvic region and thigh documented in this encounter Additional Health Concerns Assessment Noted Time PHQ-9 Depression Total Score: 3 03/29/19 23 1:20 PM EST documented as of this encounter Care Teams Slag Worker Relationship Specialty Start Date End Date Kimberly Fay MD [address] [place] [address] PCP - General Family Medicine 06/24/12 documented as of this encounter
--- OUTSIDE RECORDS SUMMARY | 2024-06-10 10:44 | XMS_ITS | Encounter Summary ---
Author Organization [employer] Address [address] [place] [address] Care Team Providers Care Nutritionalist Name Role Phone Kimberly Fay MD Primary Care Provider [phone] Reason for Visit * Reason Comments Med Refill Encounter Details Date Type Department Care Team ([facility] Contact Info) Description 07/20/2023 Refill [facility] & PEDS [address] [place], [place] [phone] Kimberly Fay MD [address] [place] [address] Social History Tobacco Use Types Packs/Day Years [...] 10:00 AM EDT Office Visit [facility] [address] [place] [address] Quan Fairchild MD [address] [place] [address] documented as of this encounter Visit Diagnoses Not on filedocumented in this encounter Additional Health Concerns Assessment Noted Time PHQ-9 Depression Total Score: 3 03/29/19 23 1:20 PM EST documented as of this encounter Care Teams Nutritionalist Relationship Specialty Start Date End Date Kimberly Fay MD [address] [place] [address] PCP - General Family Medicine 06/24/12 documented as of this encounter
--- OUTSIDE RECORDS SUMMARY | 2024-06-10 10:44 | XMS_ITS | Encounter Summary ---
Author Organization [employer] Address [address] [place] [address] Care Team Providers Care Real Estate Consultant Name Role Phone Kimberly Fay MD Primary Care Provider [phone] Reason for Visit * Reason Comments Med Change Request Encounter Details Date Type Department Care Team ([facility] Contact Info) Description 11/16/2022 Refill [facility] & PEDS [address] [place] [address] Kimberly Fay MD [address] [place] [address] Social History Tobacco Use Types Packs/Day Years [...] Upcoming Encounters Date Type Department Care Team ([facility] Contact Info) Description 08/02/2024 10:00 AM EDT Office Visit [facility]S [address] [place] [address] Quan Fairchild MD [address] [place] [address] documented as of this encounter Visit Diagnoses Not on filedocumented in this encounter Additional Health Concerns Assessment Noted Time PHQ-9 Depression Total Score: 3 03/29/19 23 1:20 PM EST documented as of this encounter Care Teams Real Estate Consultant Relationship Specialty Start Date End Date Kimberly Fay MD [address] [place] [address] PCP - General Family Medicine 06/24/12 documented as of this encounter
--- OUTSIDE RECORDS SUMMARY | 2024-06-10 10:44 | XMS_ITS | Encounter Summary ---
Author Organization [employer] Address [address] [place] [address] Care Team Providers Care Rail Manager Name Role Phone Kimberly Fay MD Primary Care Provider [phone] Reason for Visit * Reason Comments Med Change Request Encounter Details Date Type Department Care Team ([facility] Contact Info) Description 11/15/2022 Refill [facility] MED & PEDS [address] [place] [address] Kimberly Fay MD [address] [place] [address] Social History Tobacco Use Types Packs/Day Years [...] Upcoming Encounters Date Type Department Care Team ([facility] Contact Info) Description 08/02/2024 10:00 AM EDT Office Visit [facility] & PEDS [address] [place] [address] Quan Fairchild MD [address] [place] [address] documented as of this encounter Visit Diagnoses Not on filedocumented in this encounter Additional Health Concerns Assessment Noted Time PHQ-9 Depression Total Score: 3 03/29/19 23 1:20 PM EST documented as of this encounter Care Teams Rail Manager Relationship Specialty Start Date End Date Kimberly Fay MD [address] [place] [address] PCP - General Family Medicine 06/24/12 documented as of this encounter
--- OUTSIDE RECORDS SUMMARY | 2024-06-10 10:44 | XMS_ITS | Encounter Summary ---
Author Organization [employer] Address [address] [place] [address] Care Team Providers Care Flooring Machine Operator Name Role Phone Kimberly Fay MD Primary Care Provider [phone] Reason for Visit * Reason Comments Med Refill Encounter Details Date Type Department Care Team ([facility] Contact Info) Description 06/02/2024 Refill [facility] CHC MED & PEDS [address] [place], [place] [phone] Kimberly Fay MD [address] [place] [address] Social History Tobacco Use Types Packs/Day Years [...] 08/02/2024 10:00 AM EDT Office Visit [facility] MED & PEDS [address] [place] [address] Quan Fairchild MD [address] [place] [address] documented as of this encounter Visit Diagnoses Not on filedocumented in this encounter Additional Health Concerns Assessment Noted Time PHQ-9 Depression Total Score: 3 03/29/19 23 1:20 PM EST documented as of this encounter Care Teams Flooring Machine Operator Relationship Specialty Start Date End Date Kimberly Fay MD [address] [place] [address] PCP - General Family Medicine 06/24/12 documented as of this encounter
--- OUTSIDE RECORDS SUMMARY | 2024-06-10 10:44 | XMS_ITS | Encounter Summary ---
Author Organization [employer] Address [address] 7[address] [place] [address] Care Team Providers Care Clinical Resource Director Name Role Phone Kimberly Fay MD Primary Care Provider [phone] Reason for Referral * Imaging (Routine) - Closed Specialty Diagnoses / Procedures Referred By Contron t Referred To Contact Radiology Diagnoses Right inguinal hernia Procedures Us Pelvis complete Kimberly Fay MD [address] [place] [address] Phone: tel: fax: [facility] fax: Referral ID Status Reason Start Date Expiration Date Visits Re quested Visits Authorized [id number] Closed 12/19/2022 12/19/2023 1 1 Encounter Details Date Type Department Care Team ([facility] st Contact Info) Description 12/19/2022 Orders Only [facility] CHC MED & PEDS [address] [place] [address] Kimberly Fay MD [address] [place] [address] Right inguinal hernia (Primary Dx) Social History [...] Description 08/02/2024 10:00 AM EDT Office Visit [facility] MED & PEDS [address] [place] [address] Quan Fairchild MD [address] [place] [address] Scheduled Orders Name Type Priority Associated Diagnoses [...] documented as of this encounter Care Teams Clinical Resource Director Relationship Specialty Start Date End Date Kimberly Fay MD [address] [place] [id number] PCP - General Family Medicine 06/24/12 documented as of this encounter
--- OUTSIDE RECORDS SUMMARY | 2024-06-10 10:44 | XMS_ITS | Encounter Summary ---
Author Organization [employer] Address [address] [place] [address] Care Team Providers Care Infrastructure Tech Name Role Phone Kimberly Fay MD Primary Care Provider [phone] Reason for Visit * Reason Comments Med Refill Encounter Details Date Type Department Care Team ([facility] Contact Info) Description 02/12/2024 Refill [facility] CHC MED & PEDS [address] [place], [place] [phone] Kimberly Fay MD [address] [place] [address] Social History Tobacco Use Types Packs/Day Years [...] 08/02/2024 10:00 AM EDT Office Visit [facility] MED & PEDS [address] [place] [address] Quan Fairchild MD [address] [place] [address] documented as of this encounter Visit Diagnoses Not on filedocumented in this encounter Additional Health Concerns Assessment Noted Time PHQ-9 Depression Total Score: 3 03/29/19 23 1:20 PM EST documented as of this encounter Care Teams Infrastructure Tech Relationship Specialty Start Date End Date Kimberly Fay MD [address] [place] [address] PCP - General Family Medicine 06/24/12 documented as of this encounter
--- OUTSIDE RECORDS SUMMARY | 2024-06-10 10:44 | XMS_ITS | Encounter Summary ---
Author Organization [employer] Address [address] [place] [address] Care Team Providers Care Healthcare Recruiter Name Role Phone Kimberly Fay MD Primary Care Provider [phone] Reason for Visit * Reason Onset Date Comments Med Refill 05/31/2024 Encounter Details Date Type Department Care Team ([facility] st Contact Info) Description 05/31/2024 Refill [facility] MEDICINE [address] [place] [address] Randi Porter, RN Opioid type dependence, continuous (CMS/HCC) Social History Tobacco Use Types Packs/Day Years [...] Description 08/02/2024 10:00 AM EDT Office Visit [facility] CHC MED & PEDS [address] [place] [address] Quan Fairchild MD [address] [place] [address] documented as of this encounter Visit Diagnoses Diagnosis Opioid type dependence, continuous (CMS/HCC) Opioid type dependence, continuous documented in this encounter Additional Health Concerns Assessment Noted Time PHQ-9 Depression Total Score: 3 03/29/19 23 1:20 PM EST documented as of this encounter Care Teams Healthcare Recruiter Relationship Specialty Start Date End Date Kimberly Fay MD [address] [place] [address] PCP - General Family Medicine 06/24/12 documented as of this encounter
--- OUTSIDE RECORDS SUMMARY | 2024-06-10 10:44 | XMS_ITS | Encounter Summary ---
Author Organization [employer] Address [address] [place] [address] Care Team Providers Care Twisting Frame Changer Name Role Phone Kimberly Fay MD Primary Care Provider Reason for Visit * Reason Comments Med Refill Encounter Details Date Type Department Care Team ([facility] Contact Info) Description 03/16/2024 Refill [facility] CHC MED & PEDS [address] [place], [place] [phone] Kimberly Fay MD [address] [place] [address] Social History Tobacco Use Types Packs/Day Years [...] Description 08/02/2024 10:00 AM EDT Office Visit [facility] MED & PEDS [address] [place] [address] Quan Fairchild MD [address] [place] [address] documented as of this encounter Visit Diagnoses Not on filedocumented in this encounter Additional Health Concerns Assessment Noted Time PHQ-9 Depression Total Score: 3 03/29/19 23 1:20 PM EST documented as of this encounter Care Teams Twisting Frame Changer Relationship Specialty Start Date End Date Kimberly Fay MD [address] [place] [address] PCP - General Family Medicine 06/24/12 documented as of this encounter
--- OUTSIDE RECORDS SUMMARY | 2024-06-10 10:44 | XMS_ITS | Encounter Summary ---
Author Organization [employer] Address [address] [place] [address] Care Team Providers Care Experience Specialist Name Role Phone Kimberly Fay MD Primary Care Provider [phone] Reason for Visit * Reason Comments OBAT F/U Encounter Details Date Type Department Care Team (Latest Contact Info) Description 06/07/2024 11:00 AM EDT Clinical Support [facility] MED & PEDS [address] [place] [address] Randi Porter, ADELINA Opioid type dependence, continuous (CMS/HCC) (Primary Dx) Social History Tobacco Use Types [...] AM EDT documented as of this encounter Progress Notes * Randi Porter RN - 06/07/2024 11:00 AM EDT Patient here today for Opioid Dependence RV. Patient is on current Suboxone dose of 16/4 mg on a 8 week schedule. Pt has been in the program for 5 years 10 months. Induction date: 05/28/18 (Pt has beenon Suboxone since 2006). Patient actively enrolled in behavioral health services, therapist Coleen Sam and psychiatrist at [facility] in [place]. 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 PCP: Sumeet 06/11/23 LFTs: Done 06/18/23 Hepatitis C: VL negative 03/03/18. Fibrosis = F2 2015 Hepatitis B/Hepatitis A: Immune T-spot Negative 05/28/18 HIV Negative 05/28/18 LAST OBAT VISIT 04/05/2024 UTOX: POS BUP ONLY NEG FOR ALL OTHER SUBSTANCES Patient presents in-person for OUD OBAT evaluation Doing well without cravings or relapse States last opioid/cocaine use was in 2010 Declines PrEP (states low risk) Suboxone dosing schedule of 16/4mg daily and management of side effects reviewed Undergone glaucoma surgery (11/19/2023) Recovery support, harm reduction, and behavioral health attendance reviewed Patient expressed understanding and agreement with continuing plan of care Follow up in 9 weeks due to holiday schedule THIS OBOT VISIT: 06/07/2024 UTOX: BUP Juvenal said he is hanging in there. When asked what could be better, he said that he had hernia surgery years ago and now it has ruptured again. In order for him to have it surgically repaired again, he needs to see a district director (because he said he is feeling some pressure in the chest area. Astress test is scheduled for mid-June. Meawhile, he said he is battling with his mind regarding his pain. He said that seeking pain relief triggers him to use, and so he is constantly checking himself. He also has a left hip that is bothering him (he had a right hip replacement about 10 years ago. We discussed some non- pharmaceutical relief options. He said for now he takes some ibuprofen for pain, but it does not really help. Suggested that he contact district director and ask for a sooner appointment so that surgery can take place sooner rather than later. He said he gets about 4 hours of sleep a night. When he wakes up, he usually gets up to draw. His drawings are so life-like. He focuses on eyes, which he says are the window to the soul. Will see him in eight weeks. Continue current dose. This information has been disclosed to you from records protected by federal confidentiality rules (42 CFR Part 2). The federal rules prohibit you from making any further disclosure of information inthis record that identifies a patient as having or having had a substance use disorder either directly, by reference to publicly available information, or through verification of such identification by another person unless further disclosure is expressly permitted by the written consent of the individual whose information is being disclosed or as otherwise permitted by (see2.3.1). The federal rules restrict any use of the information to investigate or prosecute with regard to a crime any patient with a substance use disorder, except as provided at 2.12??(5) and 2.65 documented in this encounter Plan of Treatment Upcoming Encounters Date Type Department Care Team (Late st Contact Info) Description 08/02/2024 10:00 AM EDT Office Visit [facility] MED & PEDS [address] [place] [address] Quan Fairchild MD [address] [place], [place] [phone] documented as of this encounter Goals Goal Patient Goal Type Associated Problems Recent Progress Patient-Stated? Author Increase coping skills to promote long-term recovery and improve ability to perform daily activities General No Randi Porter RN documented as of this encounter Procedures Procedure Name Priority Date/Time Associated Diagnosis Comments POCT LB-14 URINE DRUG SCREEN Routine 06/07/2024 11:16 AM EDT Opioid type dependence, continuous (CMS/HCC) documented in this encounter Results * POCT LB-14 Urine Drug Screen (06/07/2024 11:16 AM EDT) THC Negative Cocaine Screen, Urine Negative Opiate Screen, Urine Negative Methamphetamine Screen Urine Negative Amphetamine Screen, Urine Negative Benzodiazepines Screen, Urine Negative Barbiturate Screen, Urine Negative Methadone Screen, Urine Negative Buprenophine Screen, Urine Positive TCA, Urine Negative MDMA Urine Negative ng/mL Oxycodone Screen, Urine Negative Phencyclidine (PCP), Urine Negative Propoxyphene, Urine Negative Urine Urine specimen obtained by clean catch procedure / Unknown 06/07/2024 11:16 AM EDT Pedro Child MD POINT OF CARE TEST ENTER/EDIT ORDERABLES Final Result documented in this encounter Visit Diagnoses Diagnosis Opioid type dependence, continuous (CMS/HCC)- Primary Opioid type dependence, continuous documented in this encounter Additional Health Concerns Assessment Noted Time PHQ-9 Depression Total Score: 3 03/29/19 23 1:20 PM EST documented as of this encounter Care Teams Experience Specialist Relationship Specialty Start Date End Date Kimberly Fay MD [address] [place] [address] PCP - General Family Medicine 06/24/12 documented as of this encounter
--- OUTSIDE RECORDS SUMMARY | 2024-06-10 10:44 | XMS_ITS | Encounter Summary ---
Author Organization [employer] Address [address] [place] [address] Care Team Providers Care Air Crew Officer Name Role Phone Kimberly Fay MD Primary Care Provider [phone] Reason for Visit * Reason Onset Date Comments Nurse Triage 06/04/2024 Encounter Details Date Type Department Care Team ([facility] Contact Info) Description 06/04/2024 Telephone [facility] MEDICINE [address] [place] [address] Kimberly Fay MD [address] [place] [address] Nurse Triage Social History Tobacco Use Types [...] encounter Miscellaneous Notes * Telephone Encounter - Olga Gerardo RN - 06/04/2024 2:05 PM EDT Call returned to Juvenal Morataya to triage below. Reports having left hip pain x 1 week. No redness ,rash or bruising of skin. Per pt pain started at the buttocks hip pain. No fall or injury to area. Pain worse with ambulation. Has limited ROM. Pt reports is walking with a limp. Pt not using any meds for pain relief. Pt offered appt on Friday but pt priyanka had CRS appt with RN for OBAT and unable to have appt on Medical side per Billing Dept. Pt advised to seek [facility] tomorrow or Friday or return call on Friday for [facility] same day or next day availability. Pt agrees. Reviewed [facility] operating hours and that wait times vary. Reviewed home care advise, ER precautions and reasons to call back. Protocol Used: Hip Pain (Adult) Protocol-Based Disposition: See in Office or Video Visit within 3 Days Positive Triage Question: * Moderate pain (e.g., interferes with normal activities, limping) and present > 3 days * All higher-acuity triage questions were negative Care Advice Discussed: * Reassurance and Education - Hip Pain * Pain Medicines * Reasons To Call Back - Signs of infection occur (such as spreading redness, warmth, fever) - You become worse * Telephone Encounter - Hermila Rodriguez - 06/04/2024 1:57 PM EDT Symptom: Left Hip Pain - Not From Injury Outcome: Schedule an appointment to be seen within 24 hours Reason: Caller denied all higher acuity questions The caller accepted this outcome. [phone] documented in this encounter Plan of Treatment Upcoming Encounters Date Type Department Care Team ([facility] st Contact Info) Description 08/02/2024 10:00 AM EDT Office Visit [facility] MED & PEDS [address] [place] [address] Quan Fairchild MD [address] [place], [place] [phone] documented as of this encounter Visit Diagnoses Not on filedocumented in this encounter Additional Health Concerns Assessment Noted Time PHQ-9 Depression Total Score: 3 03/29/19 23 1:20 PM EST documented as of this encounter Care Teams Air Crew Officer Relationship Specialty Start Date End Date Kimberly Fay MD [address] [place], [place] [phone] PCP - General Family Medicine 06/24/12 documented as of this encounter
--- OUTSIDE RECORDS SUMMARY | 2024-06-10 10:44 | XMS_ITS | Encounter Summary ---
Author Organization [employer] Address [address] [place] [address] Care Team Providers Care Sintering Plant Supervisor Name Role Phone Kimberly Fay MD Primary Care Provider [phone] Encounter Details Date Type Department Care Team ([facility] st Contact Info) Description 06/08/2024 Telephone [facility] [address] [place], [place] [phone] Quan Fairchild MD [address] [place] [address] Social History Tobacco Use Types Packs/Day Years [...] encounter Miscellaneous Notes * Telephone Encounter - Quan Fairchild MD - 06/08/2024 5:04 PM EDT Diagnoses and all orders for this visit: Opioid dependence, uncomplicated (CMS/HCC) (Primary) - buprenorphine-naloxone (Suboxone) 4-1 MG per sublingual film; Place 1 Film under the tongue 2 times daily. In addition to the 8mg-2mg SL BID dose (total 24mg-6mg daily) documented in this encounter Plan of Treatment Upcoming Encounters Date Type Department Care Team (Late st Contact Info) Description 08/02/2024 10:00 AM EDT Office Visit [facility] MED & PEDS [address] [place], [place] [phone] Quan Fairchild MD [address] [place] [phone] documented as of this encounter Goals Goal Patient Goal Type Associated Problems Recent Progress Patient-Stated? Author Increase coping skills to promote long-term recovery and improve ability to perform daily activities General No Randi Porter, ADELINA documented as of this encounter Visit Diagnoses Diagnosis Opioid dependence, uncomplicated (CMS/HCC)- Primary documented in this encounter Additional Health Concerns Assessment Noted Time PHQ-9 Depression Total Score: 3 03/29/19 23 1:20 PM EST documented as of this encounter Care Teams Sintering Plant Supervisor Relationship Specialty Start Date End Date Kimberly Fay MD [address] [place] [address] PCP - General Family Medicine 06/24/12 documented as of this encounter
--- OUTSIDE RECORDS SUMMARY | 2024-06-10 10:44 | XMS_ITS | Clinical Summary ---
Author Organization [employer] Address [address] 7[address] [place] [address] Care Team Providers Care Thaw Shed Heater Tender Name Role Phone Kimberly Fay MD Primary Care Provider [phone] Allergies Active Allergy Reactions Criticality Noted Date [...] 2 puffs every 12 (twelve) hours. 12/14/19 22 Active albuterol 108 (90 Base) MCG/ACT inhaler [...] daily. 100 each 11 11/20/19 23 Active glucose blood (OneTouch Ultra) test stripIndications [...] DAY 90 tablet 3 03/09/20 24 Active cloNIDine (Catapres) 0.1 MG tabletIndication s:Primary hypertension TAKE 1 TABLET BY MOUTH TWICE A DAY 180 tablet 1 05/11/19 25 Active Buprenorphine HCl-Naloxone HCl (Suboxone) 8-2 MG SL filmIndications: Opioid type dependence, continuous (CMS/HCC) Place 2 Film under the tongue Once per day. Do not start before June 07, 2024. 56 Film 1 06/08/19 25 025 Active GaviLAX 17 GM/SCOOP powder MIX AND DRINK 17 GRAMS BY MOUTH ONCE PER DAY 510 g 06/04/19 25 Active metFORMIN (Glucophage) 500 MG tablet TAKE 1 TABLET (500 MG) BY MOUTH WITH BREAKFAST AND WITH EVENING MEAL 180 tablet 3 06/04/19 25 026 Active buprenorphine-na loxone (Suboxone) 4-1 MG per sublingual filmIndications: Opioid dependence, uncomplicated (CMS/HCC) Place 1 Film under the tongue 2 times daily. In addition to the 8mg-2mg SL BID dose (total 24mg-6mg daily) 56 Film 1 06/09/19 25 025 Active predniSONE (Deltasone) 20 MG tablet Take 1 tablet (20 mg) by mouth Once per day for 5 days. 5 tablet 06/11/19 25 025 Active metFORMIN (Glucophage) 500 MG tablet TAKE 1 TABLET (500 MG) BY MOUTH WITH BREAKFAST AND WITH EVENING MEAL 180 tablet 3 07/28/19 24 025 Discontinued Buprenorphine HCl-Naloxone HCl (Suboxone) 8-2 MG SL filmIndications: Opioid type dependence, continuous (CMS/HCC) Place 2 Film under the tongue Once per day. Do not start before April 09, 2024. 56 Film 1 04/09/19 25 025 Discontinued(R eorder (will not trigger notification to Pharmacy)) GaviLAX 17 GM/SCOOP powder MIX AND DRINK 17 GRAMS BY MOUTH ONCE PER DAY 510 g 05/11/19 25 025 Discontinued Active Problems Problem Noted Date [...] Encounters Date Type Department Care Team Description 06/10/2024 9:20 AM EDT Office Visit [facility] [address] [place] [phone] Kimberly Fay MD Left hip pain (Primary Dx) 06/08/2024 Telephone [facility] [address] [place] [address] Quan Fairchild MD 06/08/2024 Telephone [facility] MEDICINE [address] [place] [address] Randi Porter RN 06/07/2024 11:00 AM EDT Clinical Support [facility] MED & PEDS [address] [place] [address] Randi Porter RN Opioid type dependence, continuous (CMS/HCC) (Primary Dx) 06/07/2024 Travel 06/04/2024 Telephone [facility] MEDICINE [address] [place] [address] Kimberly Fay MD Nurse Triage 06/02/2024 Refill [facility] MED & PEDS [address] [place] [address] Kimberly Fay MD 05/31/2024 Refill [facility] MEDICINE [address] [place] [address] Randi Porter RN Opioid type dependence, continuous (CMS/HCC) 05/08/2024 Refill [facility] MED & PEDS [address] [place] [address] Pedro Gallegos MD Primary hypertension 05/08/2024 Refill [facility] PEDS [address] [place] [address] Kimberly Fay MD 04/09/2024 Telephone [facility] PED[facility] [address] [place] [address] Kimberly Fay MD Returning call 04/06/2024 2:45 PM EST Office Visit [facility] MED & PEDS [address] [place] [address] Jerman Silva MD Other chest pain (Primary Dx); Type 2 diabetes mellitus without complication, without long-term current use of insulin ([facility]) 04/05/2024 10:45 AM EST Office Visit [facility] PEDS [address] [place] [address] Quan Fairchild MD Opioid type dependence, continuous ([facility]) (Primary Dx) 04/05/2024 Travel 03/30/2024 Refill [facility] MEDICINE [address] [place] [address] Randi Porter, RN Opioid type dependence, continuous ([facility]) 03/16/2024 Refill [facility]ED[facility] [address] [place] [address] Kimberly Fay MD 03/15/2024 Telephone [facility]ED[facility] [address] [place] [address] Kimberly Fay MD Nurse Triage from Last 3 Months Immunizations Name Administration [...] Former Snuff Tobacco Cessation:Counseling Given: Yes Comments:Stopped 2017 Alcohol Use Standard Drinks/Week Comments [...] (168 lb) 06/10/2024 9:07 AM EDT Height 158.8 cm (5' 2.5 ) 04/06/2024 3:05 PM EST Body Mass Index 30.24 04/06/2024 3:05 PM EST Plan of Treatment Upcoming Encounters Date Type Department Care Team (Late st Contact Info) Description 08/02/2024 10:00 AM EDT Office Visit [facility] MED [facility] PEDS [address] [place] [address] Quan Fairchild MD [address] [place] [address] Health Maintenance Due Date Last Done Comments CT Colonography 1960 Colonoscopy 1960 Colorectal Cancer Screening 1960 Dental X-Ray: Bitewings 1958 FIT DNA/Cologuard 1960 FIT 1960 FOBT 1960 Sigmoidoscopy 1960 Hepatitis C Screening 01/14/1976 Lung Cancer Screening 01/14/2008 Zoster Vaccines (1 of 2) 01/14/2008 Pneumococcal Vaccine: 50+ Years (2 of 2 - PCV) 12/05/2012 12/06/2011 Depression Screening 03/29/2023 03/29/2022, 03/29/19 23 Dental Oral Exam 10/02/2023 04/02/2023 Dental Prophylaxis 10/02/2023 04/02/2023 SDOH Screening 06/01/2024 06/02/2023 Influenza Vaccine (#1) 2024 7, 01/05/2016, 03/07/2015, Additional history exists Postponed from 11/23/2023 (Patient Refused) Alcohol/Substance Use Screening 02/08/2025 02/09/2024 COVID-19 Vaccine (1 - season) 2025 Postponed from 11/23/2023 (Patient Refused) Tobacco Screening 04/06/2025 04/06/2024 DTaP/Tdap/Td Vaccines (2 - Td or Tdap) 01/04/2026 01/05/2016, 03/24/1996 Dental X-Ray: Full Mouth 04/03/2026 04/02/2023 Lipid Panel 02/08/2029 02/09/2024, 05/23, 05/27/2022, Additional history exists RSV Patients and Patients Aged 60 years [...] on patient's age to complete this topic Goals Goal Patient Goal Type Associated Problems Recent Progress Patient-Stated? Author Increase coping skills to promote long-term recovery and improve ability to perform daily activities General No Randi Porter RN Procedures Procedure Name Priority Date/Time Associated Diagnosis Comments XR HIP 2 OR 3 VIEWS LEFT Routine 06/10/2024 9:41 AM EDT Left hip pain POCT LB-14 URINE DRUG SCREEN Routine 06/07/2024 11:16 AM EDT Opioid type dependence, continuous (CMS/HCC) ECG 12-LEAD Routine 04/07/2024 9:59 AM EST Other chest pain POCT GLUCOSE Routine 04/06/2024 3:06 PM EST Type 2 diabetes mellitus without complication, without long-term current use of insulin (CMS/HCC) POCT LB-14 URINE DRUG SCREEN Routine 04/05/2024 10:43 AM EST Opioid type dependence, continuous (CMS/HCC) LIPID PANEL, STANDARD Routine 02/09/2024 10:31 AM EST Primary hypertension Type 2 diabetes mellitus without complication, without long-term current use of insulin ([facility]) PROPHYLAXIS - ADULT Routine 04/02/2023 1 0:00 AM EST PANORAMIC RADIOGRAPHIC IMAGE Routine 04/02/2023 10:00 AM EST PERIODIC ORAL EVALUATION - ESTABLISHED PATIENT Routine 04/02/2023 10:00 AM EST from Last 3 Months or Most Recently Relevant to Health Maintenance Results * XR Hip 2 or 3 Views Left (06/10/2024 9:41 AM EDT) Anatomical Region Laterality Modality Lower Extremities, Hip Left Radiograp hic Imaging 06/10/2024 9:41 AM EDT Narrative 06/10/2024 10:22 AM EDT ?[facility] ?[address] ?[place] [address] ?XRay Report ? Signed ? Patient: Juvenal Morataya ?MR#: [id number] ?? 6 ? : 1960 ?Acct:[id number] ? Age/Sex: 64 / M ?ADM Date: 06/10/24 ? Loc: HO.HHCX ? Attending Dr: Kimberly Fay MD ? Ordering Physician: Kimberly Fay MD ?? Date of Service: 06/10/24 ?? Procedure(s): XR hip LT min 2V ?? Accession Number(s): [id number] ? cc: Kimberly Fay MD ? EXAMINATION: [...] DJD ? Electronically signed by: ??Luis Angel Ruggiero MD ??06/10/2024 10:20 AM EDT RP ? Dictated By: ?Monik,Luis Angel Medellin MD ? Signed By: ?<Electronically signed by Luis Angel Ruggiero MD in OV> ?06/10/24 1020 ? DD/ 0941 ? TD/TT: 06/10/24 1000 ? Slug Press Operator: MSM ? Procedure Note Donotuseinterpreter, Image - 06/10/[address] [address] XRay Report Signed Patient: Juvenal MoratayaMR#: [id number] 6 : 1960cct:[id number] Age/Sex: 64 / MADM Date: 06/10/24 Loc: HO.HHX Attending Dr: Kimberly Fay MD Ordering Physician: Kimberly Fay MD Date of Service: 06/10/24 Procedure(s): XR hip LT min 2V Accession Number(s): [id number] cc: Kimberly Fay MD EXAMINATION: XR HIP, [...] 06/10/24 1020 DD/ 0941 TD/TT: 06/10/24 1000 Slug Press Operator: MSM Kimberly Fay MD IMG XR PROCEDURES Edited Result - Final * POCT LB-14 Urine Drug Screen (06/07/2024 11:16 AM EDT) Only the most recent of2 resultswithin the [...] OF CARE TEST ENTER/EDIT ORDERABLES Final Result * ECG 12 lead (04/07/2024 9:59 AM EST) Narrative Jerman Silva MD - 04/07/2024 9:59 AM EST Heart rate 88 bpm. ??Garfield -51. ??LAFB. ??Sinus rhythm. ??RSR' in V2. ??No sign of left atrial enlargement or right atrial enlargement. ??No hypertrophy. ?? No ST elevation or ST depression. Jerman Silva MD ECG ORDERABLES Final Resul t * POCT Glucose (04/06/2024 3:06 PM EST) Pathologist [facility] Glucose Blood, POC 178 60 - 200 mg/dL Comment:Random QC Media Lot # [id number] Lot# Expiration Date 4825 Blood Capillary blood specimen / Unknown 04/06/2024 3:06 PM EST Jerman Silva MD POINT OF CARE TEST ENTER/ED IT ORDERABLES Final Result * (ABNORMAL) Lipid Panel, Standard (02/09/2024 10:31 AM EST) Pathologist [facility] Triglycerides 118 <150 mg/dL [facility] Comment:Desirable Triglyceri de: less than 150 mg/dLBorderline High Triglyceride 150-199 mg/dLHigh Triglyceride: 200-499 mg/dLVery High Triglyceride: greater than or equal to 5OO mg/dL Cholesterol 185 <200 mg/dL [facility] Comment:Desirable Cholestero l: less than 200 mg/dLBorderline High Cholesterol: 200-239 mg/dLHigh Cholesterol: greater than 239 mg/dL LDL Cholesterol Calculated 126(H) <100 mg/dL [facility] Comment:Desirable LDL: less than 100 mg/dLNear Optimal/Above Optimal LDL: 110- 129 mg/dLBorderline High LDL: 130-159 mg/dLHigh LDL: 160-189 mg/dLVery High LDL: greater than or equal to 190 mg/dL HDL Cholesterol 36(L) >40 mg/dL [facility] Comment:Desirable HDL: great er than 40 mg/dL Note: This HDL assay may give artificially low results in patients with liver disease. Blood Venous blood specimen / Unknown 02/09/2024 10:31 AM EST 02/09/2024 2:04 PM EST us Kimberly Fay MD LAB BLOOD ORDERABLES Final Resul t Performing Organization Address City/State/RUST Co de Phone Number [facility] [address] [place] [phone] from Last 3 Months or Most Recently Relevant to Health Maintenance Insurance [facility] - [facility] Care Teams Thaw Shed Heater Tender Relationship Specialty Start Date End Date Kimberly Fay MD [address] [place] [address] PCP - General Family Medicine 06/24/12
--- OUTSIDE RECORDS SUMMARY | 2024-06-10 10:44 | XMS_ITS | Encounter Summary ---
Author Organization [employer] Address [address] [place] [address] Care Team Providers Care Vice Squad Police Officer Name Role Phone Kimberly Fay MD Primary Care Provider [phone] Encounter Details Date Type Department Care Team ([facility] st Contact Info) Description 01/09/2024 Telephone [facility] ADULT DENTAL [address] [place] [address] Alexadnro Canales, BDLacie [address] [place], [place] [phone] Social History Tobacco Use Types Packs/Day Years [...] Description 08/02/2024 10:00 AM EDT Office Visit [facility] CHC MED & PEDS [address] [place] [address] Quan Fairchild MD [address] [place] [address] documented as of this encounter Visit Diagnoses Not on filedocumented in this encounter Additional Health Concerns Assessment Noted Time PHQ-9 Depression Total Score: 3 03/29/19 23 1:20 PM EST documented as of this encounter Care Teams Vice Squad Police Officer Relationship Specialty Start Date End Date Kimberly Fay MD [address] [place] [address] PCP - General Family Medicine 06/24/12 documented as of this encounter
--- OUTSIDE RECORDS SUMMARY | 2024-06-10 10:44 | XMS_ITS | Encounter Summary ---
Author Organization [employer] Address [address] [place] [address] Care Team Providers Care Supervisor Anodizing Name Role Phone Kimberly Fay MD Primary Care Provider [phone] Reason for Visit * Reason Comments Med Refill Encounter Details Date Type Department Care Team ([facility] Contact Info) Description 02/11/2024 Refill [facility] PEDS [address] [place], [place] [phone] Kimberly Fay MD [address] [place] [address] Social History Tobacco Use Types Packs/Day Years [...] 08/02/2024 10:00 AM EDT Office Visit [facility] MED & PEDS [address] [place] [address] Quan Faicrhild MD [address] [place] [address] documented as of this encounter Visit Diagnoses Not on filedocumented in this encounter Additional Health Concerns Assessment Noted Time PHQ-9 Depression Total Score: 3 03/29/19 23 1:20 PM EST documented as of this encounter Care Teams Supervisor Anodizing Relationship Specialty Start Date End Date Kimberly Fay MD [address] [place] [address] PCP - General Family Medicine 06/24/12 documented as of this encounter
--- OUTSIDE RECORDS SUMMARY | 2024-06-10 10:44 | XMS_ITS | Data Portability ---
Author Organization [employer] [place] - inst Address [address] [place] [id number] Care Team Providers Care Roasterman Name Role Phone HIM CCA OTHER Assessment No assessment recorded. Plan of Treatment Reminders Order Date Submit Date Provider Last Modified By Organization Details Last Modified Time Details Appointments None recorded. Lab BMP, serum or plasma [address], [address] [place] [address], [phone], 10:35:15 Referral None recorded. Procedures None recorded. Surgeries None recorded. Imaging electrocard iogram [address], [address] [place] [address], [phone], 4 10:35:16 Medication Orders hydrochloro thiazide 12.5 mg tablet 2023 [facility] #[id number], [address] [place], [address], 10:34:55 Patient TargetsNo targets recorded. Patient InstructionsNo instructions recorded. Reason for Referral None Reported. Results Created Date Observation Date Name Description Value Unit Range Abnormal Flag Note LastModifiedBy Organization Detail LastModifiedTime 01/12/20 24 elect rocar diogr am No observ ation record ed. [address], [phone], 01/12/2024 10:35:06 Result Notes None recorded. Procedures Surgical History None recorded. Imaging Results Imaging Date Name Status LastModified by Organization Details LastModified Time 01/12/2024 electrocardiogram completed [address], [phone], 01/12/2024 10:35:06 Procedure Notes None recorded. Medical [...] SNOMED-CT Code Diagnosis ICD10 Code Diagnosis Note [id number] Jerri Jeffries MD Main - instED [address] [place] [address] 01/12/2024 10:23:33 2024 10:31:35 Essential hypertension [id number] I10 Evaluation in the field was performed by my medication care manager colleague, as noted above, I provided real-time [...] but not clearly related to BP. On medication care manager eval BP 150/87 rest wnl, exam with [...] Tavarez Member ID Guarantor Name 01/12/2024 1 [facility] - DOS ON OR AFTER 2022 - DUAL ELIGIBLE - LONGTERM OPTIONS AND ONE CARE (MEDICARE REPLACEMENT/ADV ANTAGE - HMO) Juvenal Morataya [id number] Juvenal Morataya Notes Date Note Type Note Provider Name and Address Organization Details Recorded Time 01/12/2024 text/html CRC Nurse Triage Notes (Felicia Diaz): Reason For Request: Patient is having Blood Pressure problems, seems high, and fluctuating Chief Complaints: Hypertension PMH: Hypertension, COPD/Asthma Other Allergies: one that was an eye drop unsure the name Comments: [employer] Worker verified the member's name//address and phone number. [...] s/s and seek emergency treatment if needed Gambling Dealer Organization Information for [employer] Business Legal Name: [facility] Transportation Address: [address] [place] [address], [employer] [facility], Design Engineering Specialist: Jalil Pina MD CLIA No.: [id number] Gambling Dealer POC Test Results from [employer] [...] .................... .................... .................... .................... .................... .................... . Gambling Dealer Note From [employer]: Pt with [...] . Disposition: Fulfilled Jerri Jeffries MD [address] [facility],[address], [place], [address], [employer] 01/12/2024 11:47:27
--- OUTSIDE RECORDS SUMMARY | 2024-06-10 10:44 | XMS_ITS | Encounter Summary ---
Author Organization [employer] Address [address] [place] [address] Care Team Providers Care Fixed Income Portfolio Manager Name Role Phone Kimberly Fay MD Primary Care Provider [phone] Reason for Visit * Reason Comments Med Refill Encounter Details Date Type Department Care Team ([facility] st Contact Info) Description 06/23/2022 Refill [facility] [address] [place] [address] Alexandro Canales, BDS [address] [place], [place] [phone] Dental caries Social History Tobacco Use Types [...] 10:00 AM EDT Office Visit [facility] MED & PEDS [address] [place] [address] Quan Fairchild MD [address] [place] [address] documented as of this encounter Visit Diagnoses Diagnosis Dental caries Unspecified dental caries documented in this encounter Additional Health Concerns Assessment Noted Time PHQ-9 Depression Total Score: 3 03/29/19 23 1:20 PM EST documented as of this encounter Care Teams Fixed Income Portfolio Manager Relationship Specialty Start Date End Date Kimberly Fay MD [address] [place] [phone] PCP - General Family Medicine 06/24/12 documented as of this encounter
--- OUTSIDE RECORDS SUMMARY | 2024-06-10 10:44 | XMS_ITS | Encounter Summary ---
Author Organization [employer] Address [address] [place] [address] Care Team Providers Care Program Director/Air Personality Name Role Phone Kimberly Fay MD Primary Care Provider [phone] Reason for Visit * Reason Comments Med Refill Encounter Details Date Type Department Care Team ([facility] Contact Info) Description 05/08/2024 Refill [facility] MED & PEDS [address] [place], [place] [phone] Kimberly Fay MD [address] [place] [address] Social History Tobacco Use Types Packs/Day Years [...] Description 08/02/2024 10:00 AM EDT Office Visit [facility] MED & PEDS [address] [place] [address] Quan Fairchild MD [address] [place] [address] documented as of this encounter Visit Diagnoses Not on filedocumented in this encounter Additional Health Concerns Assessment Noted Time PHQ-9 Depression Total Score: 3 03/29/19 23 1:20 PM EST documented as of this encounter Care Teams Program Director/Air Personality Relationship Specialty Start Date End Date Kimberly Fay MD [address] [place] [address] PCP - General Family Medicine 06/24/12 documented as of this encounter
--- OUTSIDE RECORDS SUMMARY | 2024-06-10 10:44 | XMS_ITS | Encounter Summary ---
Author Organization [employer] Address [address] [place] [address] Care Team Providers Care Stone Spreader Operator Name Role Phone Kimberly Fay MD Primary Care Provider [phone] Reason for Visit * Reason Comments Med Refill Encounter Details Date Type Department Care Team ([facility] st Contact Info) Description 05/08/2024 Refill [facility] MED & PEDS [address] [place], [place] [phone] Pedro Gallegos MD [address] [place] [address] Primary hypertension Social History Tobacco Use Types [...] Office Visit [facility] MED & PEDS [address] [place] [address] Quan Fairchild MD [address] [place] [address] documented as of this encounter Visit Diagnoses Diagnosis Primary hypertension Unspecified essential hypertension documented in this encounter Additional Health Concerns Assessment Noted Time PHQ-9 Depression Total Score: 3 03/29/19 23 1:20 PM EST documented as of this encounter Care Teams Stone Spreader Operator Relationship Specialty Start Date End Date Kimberly Fay MD [address] [place] [address] PCP - General Family Medicine 06/24/12 documented as of this encounter
--- OUTSIDE RECORDS SUMMARY | 2024-06-10 10:44 | XMS_ITS | Encounter Summary ---
Author Organization [employer] Address [address] [place] [address] Care Team Providers Care Senior Gis Analyst Name Role Phone Kimberly Fay MD Primary Care Provider [phone] Encounter Details Date Type Department Care Team (Latest Contact Info) Description 06/07/2024 Travel Social History Tobacco Use Types Packs/Day Years [...] Description 08/02/2024 10:00 AM EDT Office Visit [facility] MED & PEDS [address] [place] [address] Quan Fairchild MD [address] [place] [address] documented as of this encounter Goals Goal [...] documented as of this encounter Care Teams Senior Gis Analyst Relationship Specialty Start Date End Date Kimberly Fay MD [address] [place] [address] PCP - General Family Medicine 06/24/12 documented as of this encounter
== END 2024-06-10 09:42 | disposition home or self-care (01) ==
LOC: HO.HHCX 09:41
PROVIDERS: Visit Provider Student in an Organized Health Care Education/Training Program
DX: M25.552 Pain in left hip (principal)
CPT/HCPCS: 73502

== ENCOUNTER → 2024-06-10 09:41 | Outpatient (BNV) | payer OTHER, SELFPAY | PROVIDERS: Visit Provider Radiology Diagnostic Radiology | DX: M25.552 Pain in left hip (principal) | CPT/HCPCS: 73502 ==

== ENCOUNTER → 2024-06-25 10:47 | Outpatient (REF) | payer OTHER, SELFPAY ==
--- NOTE | 2024-06-25 10:51 | CA_ITS ---
Acquisition Time: 2024-06-25 10:57:33 Total Exercise Time: 00:05:10 Test Indications: ABN ECHO Medications: SUBOXONE CLONIDINE LISINOPRIL METFORMIN VENLAFAXINE PERPHENAZINE Protocol: SERGO Max HR: 151 BPM 98% of Pred: 154 BPM Max BP: 170/70 mmHG Max Work Load: 7.0 METS Exercise Stress Test with exercise 5 mins 10 secs of Sergo Protocol, achieving 96% MPHR, with reports of SOB, no chest pain, without any arrythmias, with normotensive response to exercise. Without EKG changes meeting criteria for ischemia. In recovery, pt's breathing returned to baseline. Echo images obtained by tech at rest and post peak exercise. Definity contrast utilized. Test reviewed with Dr. Valenzuela. Referred By: Zack Valenzuela Electronically Signed By: Efra Smart
--- OUTSIDE RECORDS SUMMARY | 2024-06-25 12:29 | XMS_ITS | Encounter Summary ---
Author Organization [employer] Address [address] 7t [place] [address] Care Team Providers Care Director Electrical Engineering Name Role Phone Kimberly Fay MD Primary Care Provider [phone] Reason for Visit * Reason Comments Med Refill Encounter Details Date Type Department Care Team ([facility] st Contact Info) Description 06/23/2022 Refill [facility] [address] [place] [address] Alexandro Canales, BDS [address] [place], [place] [phone] Dental caries Social History Tobacco Use Types [...] Description 08/02/2024 10:00 AM EDT Office Visit [facility] [address] [place] [address] Quan Fairchild MD 230 [place] [address] 08/18/2024 11:30 AM EDT Office Visit [facility] [address] [place] [address] Kimberly Fay MD 505 [place] [address] documented as of this encounter Visit Diagnoses Diagnosis Dental caries Unspecified dental caries documented in this encounter Additional Health Concerns Assessment Noted Time PHQ-9 Depression Total Score: 3 03/29/19 23 1:20 PM EST documented as of this encounter Care Teams Director Electrical Engineering Relationship Specialty Start Date End Date Kimberly Fay MD [address] [place] [address] PCP - General Family Medicine 06/24/12 documented as of this encounter
--- OUTSIDE RECORDS SUMMARY | 2024-06-25 12:29 | XMS_ITS | Encounter Summary ---
Author Organization [employer] Address [address] 7[address] [place] [address] Care Team Providers Care Dope Heater Name Role Phone Kimberly Fay MD Primary Care Provider [phone] Reason for Visit * Reason Comments Med Refill Encounter Details Date Type Department Care Team ([facility] Contact Info) Description 03/16/2024 Refill [facility] & [facility]EDS [address] [place], [place] [phone] Kimberly Fay MD 505 [place] [address] Social History Tobacco Use Types Packs/Day Years [...] 10:00 AM EDT Office Visit [facility] MED & PEDS [address] [place] [address] Quan Fairchild MD 230 [place] [address] 08/18/2024 11:30 AM EDT Office Visit [facility]ED[facility] [address] [place] [address] Kimberly Fay MD 505 [place] [address] documented as of this encounter Visit Diagnoses Not on filedocumented in this encounter Additional Health Concerns Assessment Noted Time PHQ-9 Depression Total Score: 3 03/29/19 23 1:20 PM EST documented as of this encounter Care Teams Dope Heater Relationship Specialty Start Date End Date Kimberly Fay MD 230 [place] [address] PCP - General Family Medicine 06/24/12 documented as of this encounter
--- OUTSIDE RECORDS SUMMARY | 2024-06-25 12:29 | XMS_ITS | Encounter Summary ---
Author Organization [employer] Address [address] 7t [place] [address] Care Team Providers Care Cooker Tender Name Role Phone Kimberly Fay MD Primary Care Provider [phone] Encounter Details Date Type Department Care Team ([facility] st Contact Info) Description 01/09/2024 Telephone [facility] D[facility] [address] [place] [address] Alexandro Canales, BDLacie [address] [place], [place] [phone] Social History Tobacco Use Types Packs/Day Years [...] Description 08/02/2024 10:00 AM EDT Office Visit [facility] MED [facility] PED[facility] [address] [place] [address] Quan Fairchild MD 230 [place] [address] 08/18/2024 11:30 AM EDT Office Visit [facility] [address] [place] [address] Kimberly Fay MD 505 [place] [address] documented as of this encounter Visit Diagnoses Not on filedocumented in this encounter Additional Health Concerns Assessment Noted Time PHQ-9 Depression Total Score: 3 03/29/19 23 1:20 PM EST documented as of this encounter Care Teams Cooker Tender Relationship Specialty Start Date End Date Kimberly Fay MD 230 [place] [address] PCP - General Family Medicine 06/24/12 documented as of this encounter
--- OUTSIDE RECORDS SUMMARY | 2024-06-25 12:29 | XMS_ITS | Clinical Summary ---
Author Organization [employer] Address [address] [facility] [address] [facility] [address] 7t [place] [address] Care Team Providers Care Belt Weaver Name Role Phone Kimberly Fay MD Primary Care Provider [phone] Allergies Active Allergy Reactions Criticality Noted Date [...] 56 Film 1 06/09/19 25 025 Active metFORMIN (Glucophage) 500 MG [...] DAY 510 g 05/11/19 25 025 Discontinued predniSONE (Deltasone) 20 MG tablet Take 1 tablet (20 mg) by mouth Once per day for 5 days. 5 tablet 06/11/19 25 025 Active Problems Problem Noted Date Diagnosed Date [...] Encounters Date Type Department Care Team Description 06/17/2024 Refill [facility] MED & PEDS [address] [place] [address] Kimberly Fay MD 06/10/2024 9:20 AM EDT Office Visit [facility] [address] [place] [address] Kimberly Fay MD Left hip pain (Primary Dx) 06/10/2024 Telephone [facility] [address] [place] [address] Kimberly Fay MD 06/08/2024 Telephone [facility] [address] [place] [address] Quan Fairchild MD 06/08/2024 Telephone [facility] [address] [place] [address] Randi Porter, ADELINA 06/07/2024 11:00 AM EDT Clinical Support [facility] MED & PEDS [address] [place] [address] Randi Porter, RN Opioid type dependence, continuous (CMS/HCC) (Primary Dx) 06/07/2024 Travel 06/04/2024 Telephone [facility] [address] [place] [address] Kimberly Fay MD Nurse Triage 06/02/2024 Refill [facility] MED [facility]EDS [address] [place] [address] Kimberly Fay MD 05/31/2024 Refill [facility] [address] [place] [address] Randi Porter, RN Opioid type dependence, continuous (CMS/HCC) 05/08/2024 Refill [facility] P[facility] [address] [place] [address] Pedro Gallegos MD Primary hypertension 05/08/2024 Refill [facility] [address] [place] [address] Kimberly Fay MD 04/09/2024 Telephone [facility] [address] [place] [address] Kimberly Fay MD Returning call 04/06/2024 2:45 PM EST Office Visit [facility] [address] [place] [address] Jerman Silva MD Other chest pain (Primary Dx); Type 2 diabetes mellitus without complication, without long-term current use of insulin (CMS/HCC) 04/05/2024 10:45 AM EST Office Visit [facility] [address] [place] [address] Quan Fairchild MD Opioid type dependence, continuous (CMS/HCC) (Primary Dx) 04/05/2024 Travel 03/30/2024 Refill [facility] [address] [place] [address] Randi Porter RN Opioid type dependence, continuous (CMS/HCC) from Last 3 Months Immunizations Name Administration [...] [facility] [address] [place] [address] Quan Fairchild MD [address] [place] [address] 08/18/2024 11:30 AM EDT Office Visit [facility] [address] [place] [address] Kimberly Fay MD 505 [place], [place] [phone] Health Maintenance Due Date Last Done Comments [...] SDOH Screening 06/01/2024 06/02/2023 Diabetes: Hemoglobin A1C 08/08/202402/08/ 024, 02/09/2024, 11/12/2023, Additional history exists Influenza Vaccine (#1) 2024 7, 01/05/2016, 03/07/2015, Additional history exists Postponed from 11/23/2023 (Patient Refused) Alcohol/Substance Use Screening 02/08/2025 02/09/2024 COVID-19 Vaccine ( season) 2025 Postponed from 11/23/2023 (Patient Refused) Diabetes: Foot Exam 02/08/2025 02/09/2024, 02/09/2024, 02/09/2024, Additional history exists Lipid Panel 02/08/2025 02/09/2024, 05/23, 05/27/2022, Additional history exists Tobacco Screening 04/06/2025 [...] perform daily activities General No Randi Porter, supervisor Procedure Name Priority Date/Time Associated Diagnosis Comments [...] long-term current use of insulin (CMS/HCC) POCT GLYCATED HEMOGLOBIN, TOTAL Routine 02/09/2024 10:00 AM EST Type 2 diabetes mellitus without complication, without long-term current use of insulin (CMS/HCC) PROPHYLAXIS - ADULT Routine 04/02/2023 1 0:00 [...] AM EDT Narrative 06/10/2024 10:22 AM EDT ?[facility] ?[address] ?[place] [address] ?XRay Report ? Signed ? Patient: Morataya,Juvenal ?MR#: [id number] ?? 6 ? : 1960 ?Acct:[id number] ? Age/Sex: 64 / M ?ADM Date: 03/20/25 ? Loc: HO.HHCX ? Attending Dr: Kimberly Fay MD ? Ordering Physician: Kimberly Fay MD ?? Date of Service: 06/10/24 ?? Procedure(s): XR hip LT min 2V ?? Accession Number(s): [id number] ? cc: Kimberly Fay MD ? EXAMINATION: [...] 10:20 AM EDT RP ? Dictated By: ?Luis Angel Ruggiero MD ? Signed By: ?<Electronically signed by Luis Angel Ruggiero MD in OV> ?06/10/24 1020 ? DD/ 0941 ? TD/TT: 06/10/24 1000 ? Hotel Maintenance Engineer: MSM ? Procedure Note Donamparoter, Image - 06/10/[address] [address] XRay Report Signed Patient: Howie Morataya#: [id number] 6 : 8Acct:[id number] Age/Sex: 64 / MADM Date: 06/10/24 Loc: HO.HHCX Attending Dr: Kimberly Fay MD Ordering Physician: Kimberly Fay MD Date of Service: 06/10/24 Procedure(s): XR hip LT min 2V Accession Number(s): [id number] cc: Kimberly Fay MD EXAMINATION: XR HIP, [...] Angel Ruggiero MD 06/10/2024 10:20 AM EDT RP Dictated By: Luis Angel Ruggiero MD Signed By: <Electronically signed by Luis Angel Ruggiero MD in OV> 06/10/24 1020 DD/ 0941 TD/TT: 06/10/24 1000 Hotel Maintenance Engineer: DASHA us Kimberly Fay MD IMG XR PROCEDURES Edited [...] procedure / Unknown 06/07/2024 11:16 AM EDT us Pedro Child MD POINT OF CARE TEST ENTER/EDIT ORDERABLES Final Result * ECG 12 lead (04/07/2024 9:59 AM EST) Narrative Jerman Silva MD - 04/07/2024 9:59 AM EST Heart rate 88 bpm. ??Tatums -51. ??LAFB. ??Sinus rhythm. ??RSR' in V2. ??No sign of left atrial enlargement or right atrial enlargement. ??No hypertrophy. ?? No ST elevation or ST depression. us Jerman Silva MD ECG ORDERABLES Final Resul t * POCT Glucose (04/06/2024 3:06 PM EST) Glucose Blood, POC 178 60 - 200 mg/dL Comment:Random QC Media Lot # [id number] Lot# Expiration Date 4825 Blood Capillary blood specimen / Unknown 04/06/2024 3:06 PM EST Jerman Silva MD POINT OF CARE TEST ENTER/ED IT ORDERABLES Final Result * (ABNORMAL) Lipid Panel, Standard (02/09/2024 10:31 AM EST) Triglycerides 118 <150 mg/dL [facility] Comment:Desirable Triglyceri de: less than 150 mg/dLBorderline High Triglyceride 150-199 mg/dLHigh Triglyceride: 200-499 mg/dLVery High Triglyceride: greater than or equal to 5OO mg/dL Cholesterol 185 <200 mg/dL [facility] Comment:Desirable Cholestero l: less than 200 mg/dLBorderline High Cholesterol: 200-239 mg/dLHigh Cholesterol: greater than 239 mg/dL LDL Cholesterol Calculated 126(H) <100 mg/dL [facility] Comment:Desirable LDL: less than 100 mg/dLNear Optimal/Above Optimal LDL: 110- 129 mg/dLBorderline High LDL: 130-159 mg/dLHigh LDL: 160-189 mg/dLVery High LDL: greater than or equal to 190 mg/dL HDL Cholesterol 36(L) >40 mg/dL [facility] Comment:Desirable HDL: great er than 40 mg/dL Note: This HDL assay may give artificially low results in patients with liver disease. Blood Venous blood specimen / Unknown 02/09/2024 10:31 AM EST 02/09/2024 2:04 PM EST Kimberly Fay MD LAB BLOOD ORDERABLES Final Resul t [facility] [address] [place] [phone] * POCT HGB A1C (02/09/2024 10:00 AM EST) Hemoglobin A1C 5.5 4.0 - 6.0 % QC Media Lot # [id number] Lot# Expiration Date [id number] Blood 02/09/2024 10:0 0 AM EST Kimberly Fay MD POINT OF CARE TEST ENTER/EDIT OR DERABLES Final Result * Albumin, Random Urine W/Creatinine (12/17/2022 9:40 AM EDT) Creatinine, Urine 248.22 mg/dL [facility] Microalbumin Urine 9.0 mg/L [facility] Microalbum Creatinine Ratio Ur 3.6 <30 ug/mg cr [facility] Comment:Albumin/Creatinine R atio Reference Ranges: Normal: < 30 ug/mg creatinine Microalbuminuria: 30 - 300 ug/mg creatinineClinical Albuminuria: > 300 ug/mg creatinine 12/17/2022 9:40 AM EDT 12/17/2022 2:43 PM EDT Kimberly Fay MD LAB URINE ORDERABLES Final Resul t [facility] [address] [place] [phone] from Last 3 Months or Most Recently Relevant to Health Maintenance Insurance [facility] Care Teams Belt Weaver Relationship Specialty Start Date End Date Kimberly Fay MD [address] [place] [address] PCP - General Family Medicine 06/24/12
--- OUTSIDE RECORDS SUMMARY | 2024-06-25 12:29 | XMS_ITS | Encounter Summary ---
Author Organization [employer] Address [address] 7[address] [place] [address] Care Team Providers Care Bowling Ball Patcher Name Role Phone Kimberly Fay MD Primary Care Provider [phone] Reason for Visit * Reason Comments Med Refill Encounter Details Date Type Department Care Team ([facility] Contact Info) Description 02/12/2024 Refill [facility] CH[facility] MED & PEDS [address] [place], [place] [phone] Kimberly Fay MD [address] [place] [address] Social History Tobacco Use Types Packs/Day Years [...] [facility] [address] [place] [address] Quan Fairchild MD 230 [place] [address] 08/18/2024 11:30 AM EDT Office Visit [facility] MED & PEDS [address] [place] [address] Kimberly Fay MD [address] [place] [address] documented as of this encounter Visit Diagnoses Not on filedocumented in this encounter Additional Health Concerns Assessment Noted Time PHQ-9 Depression Total Score: 3 03/29/19 23 1:20 PM EST documented as of this encounter Care Teams Bowling Ball Patcher Relationship Specialty Start Date End Date Kimberly aFy MD [address] [place] [address] PCP - General Family Medicine 06/24/12 documented as of this encounter
--- OUTSIDE RECORDS SUMMARY | 2024-06-25 12:29 | XMS_ITS | Encounter Summary ---
Author Organization [employer] Address [address] [place] [address] Care Team Providers Care Career Resource Specialist Name Role Phone Kimberly Fay MD Primary Care Provider [phone] Reason for Visit * Reason Comments Med Change Request Encounter Details Date Type Department Care Team ([facility] Contact Info) Description 11/16/[address] [facility] CH[facility] MED & PEDS [address] [place] [address] Kimberly Fay MD 505 [place] [address] Social History Tobacco Use Types Packs/Day Years [...] Upcoming Encounters Date Type Department Care Team ([facility] Contact Info) Description 08/02/2024 10:00 AM EDT Office Visit [facility] CH[facility] MED & PEDS [address] [place] [address] Quan Fairchild MD [address] [place] [address] 08/18/2024 11:30 AM EDT Office Visit [facility] CHC MED & PEDS [address] [place] [address] Kimberly Fay MD [address] [place] [address] documented as of this encounter Visit Diagnoses Not on filedocumented in this encounter Additional Health Concerns Assessment Noted Time PHQ-9 Depression Total Score: 3 03/29/19 23 1:20 PM EST documented as of this encounter Care Teams Career Resource Specialist Relationship Specialty Start Date End Date Kimberly Fay MD [address] [place] [address] PCP - General Family Medicine 06/24/12 documented as of this encounter
--- OUTSIDE RECORDS SUMMARY | 2024-06-25 12:29 | XMS_ITS | Encounter Summary ---
Author Organization [employer] Address [address] [place] [address] Care Team Providers Care Mud Engineer Name Role Phone Kimberly Fay MD Primary Care Provider [phone] Reason for Referral * Imaging (Routine) - Closed Specialty Diagnoses / Procedures Referred By Contron t Referred To Contact Radiology Diagnoses Right inguinal hernia Procedures Us Pelvis complete Kimberly Fay MD [address] [place] [address] Phone: tel: fax: [facility] fax: Referral ID Status Reason Start Date Expiration Date Visits Re quested Visits Authorized [id number] Closed 12/19/2022 12/19/2023 1 1 Encounter Details Date Type Department Care Team ([facility] st Contact Info) Description 12/19/2022 Orders Only [facility] CHC MED & PEDS [address] [place] [address] Kimberly Fay MD [address] [place] [address] Right inguinal hernia (Primary Dx) Social History [...] 10:00 AM EDT Office Visit [facility] MED & PEDS [address] [place] [address] Quan Fairchild MD [address] [place] [address] 08/18/2024 11:30 AM EDT Office Visit [facility] MED & PEDS [address] [place] [address] Kimberly Fay MD 505 [place] [address] Scheduled Orders Name Type Priority Associated Diagnoses [...] documented as of this encounter Care Teams Mud Engineer Relationship Specialty Start Date End Date Kimberly Fay MD [address] [place] [address] PCP - General Family Medicine 06/24/12 documented as of this encounter
--- OUTSIDE RECORDS SUMMARY | 2024-06-25 12:29 | XMS_ITS | Encounter Summary ---
Author Organization [employer] Address [address] [place] [address] Care Team Providers Care Audio/Visual Operator Name Role Phone Kimberly Fay MD Primary Care Provider [phone] Reason for Visit * Reason Comments Med Change Request Encounter Details Date Type Department Care Team ([facility] Contact Info) Description 11/15/2022 Refill [facility] CHC MED & PEDS [address] [place] [address] Kimberly Fay MD 505 [place] [address] Social History Tobacco Use Types Packs/Day Years [...] Upcoming Encounters Date Type Department Care Team ([facility] Contact Info) Description 08/02/2024 10:00 AM EDT Office Visit [facility] CHC MED & PEDS [address] [place] [address] Quan Fairchild MD [address] [place] [address] 08/18/2024 11:30 AM EDT Office Visit [facility] CHC MED & PEDS [address] [place] [address] Kimberly Fay MD [address] [place] [address] documented as of this encounter Visit Diagnoses Not on filedocumented in this encounter Additional Health Concerns Assessment Noted Time PHQ-9 Depression Total Score: 3 03/29/19 23 1:20 PM EST documented as of this encounter Care Teams Audio/Visual Operator Relationship Specialty Start Date End Date Kimberly Fay MD [address] [place] [address] PCP - General Family Medicine 06/24/12 documented as of this encounter
--- OUTSIDE RECORDS SUMMARY | 2024-06-25 12:29 | XMS_ITS | Encounter Summary ---
Author Organization [employer] Address [address] [facility] [address] [address] [place] [address] Care Team Providers Care Trimmer Operator Three Knife Name Role Phone Kimberly Fay MD Primary Care Provider [phone] Reason for Visit * Reason Comments Med Refill Encounter Details Date Type Department Care Team ([facility] Contact Info) Description 02/11/2024 Refill [facility] CHC MED & PEDS [address] [place], [place] [phone] Kimberly Fay MD [address] [place] [address] Social History Tobacco Use Types Packs/Day Years [...] Description 08/02/2024 10:00 AM EDT Office Visit [facility] MED & PEDS [address] [place] [address] Quan Fairchild MD [address] [place] [address] 08/18/2024 11:30 AM EDT Office Visit [facility] MED & PEDS [address] [place] [address] Kimberly Fay MD [address] [place] [address] documented as of this encounter Visit Diagnoses Not on filedocumented in this encounter Additional Health Concerns Assessment Noted Time PHQ-9 Depression Total Score: 3 03/29/19 23 1:20 PM EST documented as of this encounter Care Teams Trimmer Operator Three Knife Relationship Specialty Start Date End Date Kimberly Fay MD [address] [place] [address] PCP - General Family Medicine 06/24/12 documented as of this encounter
--- OUTSIDE RECORDS SUMMARY | 2024-06-25 12:29 | XMS_ITS | Encounter Summary ---
Author Organization [employer] Address [address] [place] [address] Care Team Providers Care Automatic Toe Laster Name Role Phone Kimberly Fay MD Primary Care Provider [phone] Reason for Visit * Reason Comments Med Refill Encounter Details Date Type Department Care Team ([facility] Contact Info) Description 07/20/2023 Refill [facility] CH[facility] MED & PEDS [address] [place], [place] [phone] Kimberly Fay MD [address] [place] [address] Social History Tobacco Use Types Packs/Day Years [...] [facility] [address] [place] [address] Quan Fairchild MD [address] [place] [address] 08/18/2024 11:30 AM EDT Office Visit [facility] MED & PEDS [address] [place] [address] Kimberly Fay MD [address] [place] [address] documented as of this encounter Visit Diagnoses Not on filedocumented in this encounter Additional Health Concerns Assessment Noted Time PHQ-9 Depression Total Score: 3 03/29/19 23 1:20 PM EST documented as of this encounter Care Teams Automatic Toe Laster Relationship Specialty Start Date End Date Kimberly Fay MD [address] [place] [address] PCP - General Family Medicine 06/24/12 documented as of this encounter
--- OUTSIDE RECORDS SUMMARY | 2024-06-25 12:29 | XMS_ITS | Data Portability ---
Author Organization [place] [facility] [place], [place] in - [facility] Address [address] [place] [id number] Care Team Providers Care Personnel Adviser Name Role Phone HIM CCA OTHER Assessment No assessment recorded. Plan of Treatment Reminders Order Date Submit Date Provider Last Modified By Organization Details Last Modified Time Details Appointments None recorded. Lab BMP, serum or plasma [address], [phone] 10:35:15 Referral None recorded. Procedures None recorded. Surgeries None recorded. Imaging electrocard iogram [address], [address] 10:35:16 Medication Orders hydrochloro thiazide 12.[address] [facility] #[id number], [address] [place], [address], 10:34:55 Patient TargetsNo targets recorded. Patient InstructionsNo instructions recorded. Reason for Referral None Reported. Results Created Date Observation Date Name Description Value Unit Range Abnormal Flag Note LastModifiedBy Organization Detail LastModifiedTime 01/12/20 24 elect rocar diogr am No observ ation record ed. [address], [phone] 01/12/2024 10:35:06 Result Notes None recorded. Procedures Surgical History None recorded. Imaging Results Imaging Date Name Status LastModified by Organization Details LastModified Time 01/12/2024 electrocardiogram completed [address], [address] 01/12/2024 10:35:06 Procedure Notes None recorded. Medical [...] SNOMED-CT Code Diagnosis ICD10 Code Diagnosis Note [id number] Jerri Jeffries MD Main - [facility] [address] [place] [phone] 01/12/2024 10:23:33 2024 10:31:35 Essential hypertension [id number] I10 Evaluation in the field was performed by my information technology intern colleague, as noted above, I provided real-time [...] but not clearly related to BP. On information technology intern eval BP 150/87 rest wnl, exam with [...] ID Guarantor Name 01/12/2024 1 [facility] - DOS ON OR AFTER 2022 - DUAL ELIGIBLE - ALF OPTIONS AND ONE CARE (MEDICARE REPLACEMENT/ADV ANTAGE - HMO) Juvenal Morataya [id number] Juvenal Morataya Notes Date Note Type Note Provider Name and Address Organization Details Recorded Time 01/12/2024 text/html CRC Nurse Triage Notes (Felicia Diaz): Reason For Request: Patient is having Blood Pressure problems, seems high, and fluctuating Chief Complaints: Hypertension PMH: Hypertension, COPD/Asthma Other Allergies: one that was an eye drop unsure the name Comments: Mica Patcher verified the member's name//address and phone number. Member is a 63 yr old male, / PMH >schizophrenia, HTN , lung disease Allergies [...] s/s and seek emergency treatment if needed Light Armored Reconnaissance Officer Organization Information for [employer] Legal Name: [facility] Address: [address] [place] [address], [place] [address], Wheel And Caster Repairer: Jalil Pina MD CLIA No.: [id number] Light Armored Reconnaissance Officer POC Test Results from [employer] EKG [...] .................... .................... .................... .................... .................... .................... . Light Armored Reconnaissance Officer Note From [employer]: Pt with hx [...] . Disposition: Fulfilled Jerri Jeffries MD [address] [facility],[address], [place], [phone], [facility] 01/12/2024 11:47:27
== END ==
LOC: HO.CARD 10:47
PROVIDERS: PCP Student in an Organized Health Care Education/Training Program; Visit Provider Internal Medicine
DX: R07.2 Precordial pain (principal)
CPT/HCPCS: 93350; Q9957

== ENCOUNTER → 2024-06-25 10:51 | Outpatient (BNV) | payer OTHER, SELFPAY | PROVIDERS: PCP Student in an Organized Health Care Education/Training Program | DX: R06.02 Shortness of breath (principal) | CPT/HCPCS: 93016; 93018; 93350; 93352 ==

== ENCOUNTER 2024-07-13 06:12 | Outpatient (REF) | payer OTHER, SELFPAY ==
--- NOTE | ~2024-07-13 | XR_ITS ---
EXAMINATION: XR PELVIS CLINICAL INFORMATION: M25.559 - Pain in unspecified hip COMPARISON: Left hip x-ray dated June 10, 2024. TECHNIQUE: AP view of the pelvis. FINDINGS: There is exclusion of the iliac crest bilaterally. Spina bifida occulta S1. Metallic prosthesis with an acetabular and femoral component in the right hip. There is a cerclage at the intertrochanteric region. There is loosening in the superior right acetabulum and the acetabular screws. No acute cortical disruption or gross malalignment. Sclerosis and the articular surface of the left acetabulum. Asymmetric joint space narrowing in the left hip. Degenerative changes in the symphysis pubis.. XR/XR pelvis 1-2V IMPRESSION: Total right hip arthroplasty prosthesis with questionable loosening at the right acetabulum component. Mild osteoarthrosis, left hip. Electronically signed by: Ariel Ching MD 07/14/2024 08:29 AM EDT
--- OUTSIDE RECORDS SUMMARY | 2024-07-14 06:15 | XMS_ITS | Encounter Summary ---
Author Organization [employer] Address [address] 7[address] [place] [address] Care Team Providers Care Glass Lined Tank Repairer Name Role Phone Kimberly Fay MD Primary Care Provider [phone] Reason for Visit * Reason Comments Med Refill Encounter Details Date Type Department Care Team ([facility] Contact Info) Description 02/12/2024 Refill [facility] CH[facility] MED & PEDS [address] [place], [place] [phone] Kimberly Fay MD [address] [place] [address] Social History Tobacco Use Types Packs/Day Years [...] EDT Office Visit [facility] MED & PEDS [address] [place] [address] Quan Fairchild MD [address] [place] [address] 08/18/2024 11:30 AM EDT Office Visit [facility] MED & PEDS [address] [place] [address] Kimberly Fay MD [address] [place] [address] documented as of this encounter Visit Diagnoses Not on filedocumented in this encounter Additional Health Concerns Assessment Noted Time PHQ-9 Depression Total Score: 3 03/29/19 23 1:20 PM EST documented as of this encounter Care Teams Glass Lined Tank Repairer Relationship Specialty Start Date End Date Kimberly Fay MD [address] [place] [address] PCP - General Family Medicine 06/24/12 documented as of this encounter
--- OUTSIDE RECORDS SUMMARY | 2024-07-14 06:15 | XMS_ITS | Encounter Summary ---
Author Organization [employer] Address [address] 7[address] [place] [address] Care Team Providers Care Lead Cook Name Role Phone Kimberly Fay MD Primary Care Provider [phone] Reason for Referral * Imaging (Routine) - Closed Specialty Diagnoses / Procedures Referred By Contron t Referred To Contact Radiology Diagnoses Right inguinal hernia Procedures Us Pelvis complete Kimberly Fay MD [address] [place] [address] Phone: tel: fax: [facility] fax: Referral ID Status Reason Start Date Expiration Date Visits Re quested Visits Authorized [id number] Closed 12/19/2022 12/19/2023 1 1 Encounter Details Date Type Department Care Team ([facility] st Contact Info) Description 12/19/2022 Orders Only [facility] CHC MED & PEDS [address] [place] [address] Kimberly Fay MD [address] [place] [address] Right inguinal hernia (Primary Dx) Social History [...] [facility] MED [facility]ED[facility] [address] [place] [address] Quan Fairchild MD [address] [place] [address] 08/18/2024 11:30 AM EDT Office Visit [facility] MED & PEDS [address] [place] [address] Kimberly Fay MD [address] [place] [address] Scheduled Orders Name Type Priority Associated Diagnoses [...] documented as of this encounter Care Teams Lead Cook Relationship Specialty Start Date End Date Kimberly Fay MD [address] [place] [address] PCP - General Family Medicine 06/24/12 documented as of this encounter
--- OUTSIDE RECORDS SUMMARY | 2024-07-14 06:15 | XMS_ITS | Encounter Summary ---
Author Organization [employer] Address [address] 7[address] [place] [address] Care Team Providers Care Looping Machine Operator Name Role Phone Kimberly Fay MD Primary Care Provider [phone] Reason for Visit * Reason Comments Med Change Request Encounter Details Date Type Department Care Team ([facility] Contact Info) Description 11/16/2022 Refill [facility] CH[facility] MED & PEDS [address] [place] [address] Kimberly Fay MD [address] [place] [address] Social History Tobacco Use Types Packs/Day Years [...] Upcoming Encounters Date Type Department Care Team ([facility] Contact Info) Description 08/02/2024 10:00 AM EDT Office Visit [facility] CHC MED & PEDS [address] [place] [address] Quan Fairchild MD [address] [place] [address] 08/18/2024 11:30 AM EDT Office Visit [facility] CHC MED & PEDS [address] [place] [address] Kimberly Fay MD [address] [place] [address] documented as of this encounter Visit Diagnoses Not on filedocumented in this encounter Additional Health Concerns Assessment Noted Time PHQ-9 Depression Total Score: 3 03/29/19 23 1:20 PM EST documented as of this encounter Care Teams Looping Machine Operator Relationship Specialty Start Date End Date Kimberly Fay MD [address] [place] [address] PCP - General Family Medicine 06/24/12 documented as of this encounter
--- OUTSIDE RECORDS SUMMARY | 2024-07-14 06:15 | XMS_ITS | Encounter Summary ---
Author Organization [employer] Address [address] 7t [place] [address] Care Team Providers Care Bottle Caser Name Role Phone Kimberly Fay MD Primary Care Provider [phone] Reason for Visit * Reason Comments Med Refill Encounter Details Date Type Department Care Team ([facility] Contact Info) Description 02/11/2024 Refill [facility] CHC MED & PEDS [address] [place], [place] [phone] Kimberly Fay MD 505 [place] [address] Social History Tobacco Use Types Packs/Day Years [...] [facility] MED & PEDS [address] [place] [address] Quan Fairchild MD [address] [place] [address] 08/18/2024 11:30 AM EDT Office Visit [facility] MED & PEDS [address] [place] [address] Kimberly Fay MD [address] [place] [address] documented as of this encounter Visit Diagnoses Not on filedocumented in this encounter Additional Health Concerns Assessment Noted Time PHQ-9 Depression Total Score: 3 03/29/19 23 1:20 PM EST documented as of this encounter Care Teams Bottle Caser Relationship Specialty Start Date End Date Kimberly Fay MD [address] [place] [address] PCP - General Family Medicine 06/24/12 documented as of this encounter
--- OUTSIDE RECORDS SUMMARY | 2024-07-14 06:15 | XMS_ITS | Encounter Summary ---
Author Organization [employer] Address [address] 7t [place] [address] Care Team Providers Care Printed Circuit Board Preassembler Name Role Phone Kimberly Fay MD Primary Care Provider [phone] Reason for Visit * Reason Comments Med Change Request Encounter Details Date Type Department Care Team ([facility] Contact Info) Description 11/15/2022 Refill [facility] CHC MED & PEDS [address] [place] [address] Kimberly Fay MD 505 [place] [address] Social History Tobacco Use Types Packs/Day Years [...] Encounters Date Type Department Care Team ([facility] Contact Info) Description 08/02/2024 10:00 AM EDT Office Visit [facility] CH[facility] MED & PEDS [address] [place] [address] Quan Fairchild MD [address] [place] [address] 08/18/2024 11:30 AM EDT Office Visit [facility] CHC MED & PEDS [address] [place] [address] Kimberly Fay MD [address] [place] [address] documented as of this encounter Visit Diagnoses Not on filedocumented in this encounter Additional Health Concerns Assessment Noted Time PHQ-9 Depression Total Score: 3 03/29/19 23 1:20 PM EST documented as of this encounter Care Teams Printed Circuit Board Preassembler Relationship Specialty Start Date End Date Kimberly Fay MD [address] [place] [address] PCP - General Family Medicine 06/24/12 documented as of this encounter
--- OUTSIDE RECORDS SUMMARY | 2024-07-14 06:15 | XMS_ITS | Encounter Summary ---
Author Organization [employer] Address [address] 7t [place] [address] Care Team Providers Care Shot Examiner Name Role Phone Kimberly Fay MD Primary Care Provider [phone] Encounter Details Date Type Department Care Team ([facility] st Contact Info) Description 01/09/2024 Telephone [facility] ADULT DENTAL [address] [place] [address] Alexandro Canales, BDLacie [address] [place], [place] [phone] Social History Tobacco Use Types Packs/Day Years [...] Description 08/02/2024 10:00 AM EDT Office Visit [facility] MED & PEDS [address] [place] [address] Quan Fairchild MD [address] [place] [address] 08/18/2024 11:30 AM EDT Office Visit [facility] MED & PEDS [address] [place] [address] Kimberly Fay MD 505 [place] [address] documented as of this encounter Visit Diagnoses Not on filedocumented in this encounter Additional Health Concerns Assessment Noted Time PHQ-9 Depression Total Score: 3 03/29/19 23 1:20 PM EST documented as of this encounter Care Teams Shot Examiner Relationship Specialty Start Date End Date Kimberly Fay MD [address] [place] [address] PCP - General Family Medicine 06/24/12 documented as of this encounter
--- OUTSIDE RECORDS SUMMARY | 2024-07-14 06:16 | XMS_ITS | Encounter Summary ---
Author Organization [employer] Address [address] 7t [place] [address] Care Team Providers Care Macaroni Maker Name Role Phone Kimberly Fay MD Primary Care Provider [phone] Reason for Visit * Reason Comments Med Refill Encounter Details Date Type Department Care Team ([facility] st Contact Info) Description 06/23/2022 Refill [facility] [address] [place] [address] Alexandro Canales, BDS [address] [place], [place] [phone] Dental caries Social History Tobacco Use Types [...] Description 08/02/2024 10:00 AM EDT Office Visit [facility] MED & PEDS [address] [place] [address] Quan Fairchild MD [address] [place] [address] 08/18/2024 11:30 AM EDT Office Visit [facility] MED & PEDS [address] [place] [address] Kimberly Fay MD 505 [place] [address] documented as of this encounter Visit Diagnoses Diagnosis Dental caries Unspecified dental caries documented in this encounter Additional Health Concerns Assessment Noted Time PHQ-9 Depression Total Score: 3 03/29/19 23 1:20 PM EST documented as of this encounter Care Teams Macaroni Maker Relationship Specialty Start Date End Date Kimberly Fay MD [address] [place] [address] PCP - General Family Medicine 06/24/12 documented as of this encounter
--- OUTSIDE RECORDS SUMMARY | 2024-07-14 06:16 | XMS_ITS | Encounter Summary ---
Author Organization [employer] Address [address] 7[address] [place] [address] Care Team Providers Care Thread Machine Operator Name Role Phone Kimberly Fay MD Primary Care Provider Reason for Visit * Reason Comments Med Refill Encounter Details Date Type Department Care Team ([facility] Contact Info) Description 07/20/2023 Refill [facility] CHC MED & PEDS [address] [place], [place] [phone] Kimberly Fay MD [address] [place] [address] Social History Tobacco Use Types Packs/Day Years [...] AM EDT Office Visit [facility] MED & PEDS [address] [place] [address] Quan Fairchild MD 230 [place] [address] 08/18/2024 11:30 AM EDT Office Visit [facility] MED & PEDS [address] [place] [address] Kimberly Fay MD [address] [place] [address] documented as of this encounter Visit Diagnoses Not on filedocumented in this encounter Additional Health Concerns Assessment Noted Time PHQ-9 Depression Total Score: 3 03/29/19 23 1:20 PM EST documented as of this encounter Care Teams Thread Machine Operator Relationship Specialty Start Date End Date Kimberly Fay MD [address] [place] [address] PCP - General Family Medicine 06/24/12 documented as of this encounter
--- OUTSIDE RECORDS SUMMARY | 2024-07-14 06:16 | XMS_ITS | Clinical Summary ---
Author Organization [employer] Address [address] 7[address] [place] [address] Care Team Providers Care Timber Buyer Name Role Phone Kimberly Fay MD Primary Care Provider [phone] Allergies Active Allergy Reactions Criticality Noted Date [...] 08/04/19 25 Active Lancets (OneTouch Delica Plus [id number]) [facility] TEST BLOOD SUGAR TWICE DAILY 100 each [...] DEPARTMENT Provider, Generic External Data 07/05/2024 Refill [facility] MED & PEDS [address] [place] [address] Kimberly Fay MD 06/17/2024 Refill [facility] & PEDS [address] [place] [address] Kimberly Fay MD 06/10/2024 9:20 AM EDT Office Visit [facility] [address] [place] [address] Kimberly Fay MD Left hip pain (Primary Dx) 06/10/2024 Telephone [facility] [address] [place] [address] Kimbrely Fay MD 06/08/2024 Telephone [facility] [address] [place] [address] Quan Fairchild MD 06/08/2024 Telephone [facility] [address] [place] [address] Randi Porter RN 06/07/2024 11:00 AM EDT Clinical Support [facility] [address] [place] [address] Randi Porter, RN Opioid type dependence, continuous (CMS/HCC) (Primary Dx) 06/07/2024 Travel 06/04/2024 Telephone [facility] [address] [place] [address] Kimberly Fay MD Nurse Triage 06/02/2024 Refill [facility] [address] [place] [address] Kimberly Fay MD 05/31/2024 Refill [facility] [address] [place] [address] Randi Porter, RN Opioid type dependence, continuous (CMS/[facility]) 05/08/2024 Refill [facility] [address] [place] [address] Pedro Gallegos MD Primary hypertension 05/08/2024 Refill [facility] [address] [place] [address] Kimberly Fay MD from Last 3 Months [...] [facility] [address] [place] [address] Quan Fairchild MD [address] [place] [address] 08/18/2024 11:30 AM EDT Office Visit [facility] [address] [place] [address] Kimberly Fay MD 505 [place] [address] Health Maintenance Due Date Last Done Comments [...] (ABNORMAL) CBC (07/07/2024 11:05 AM EDT) Pathologist [facility] White Blood Count 9.1 4.8 - 10.8 X10*3/uL [facility] Red Blood Count 4.63 4.60 - 5.80 X10*6/uL [facility] Hemoglobin 13.9(L) 14.0 - 18.0 g/dl [facility] Hematocrit 40.1(L) 42.0 - 52.0 % [facility] Mean Corpuscular Volume 86.6 80.0 - 98.0 fL [facility] Mean Corpuscular Hemoglobin 30.0 27.0 - 33.0 pg [facility] Mean Corpuscular HGB Conc 34.7 31.0 - 36.0 g/dl [facility] Red Cell Distribution Width 12.4 11.0 - 16.0 % [facility] Platelet Count 270 160 - 400 X10*3/uL [facility] Mean Platelet Volume 9.7 9.4 - 12.4 fL [facility] NRBC Pct Auto 0.0 0.0 - 0.2 /100WBC [facility] NRBC Abs Auto 0.000 0.0 - 0.012 X10*3/uL [facility] 07/07/2024 11:0 5 AM EDT 07/07/2024 11:05 AM EDT us Generic External Data Provider LAB BLOOD ORDERAB LES Final Result [facility] [address] [place] [address] [phone] * (ABNORMAL) Comprehensive Metabolic Panel (07/07/2024 11:05 AM EDT) Pathologist [facility] Sodium 140 135 - 145 mmol/L [facility] Potassium 4.5 3.3 - 5.1 mmol/L [facility] Chloride 105 96 - 108 mmol/L [facility] Carbon Dioxide 27 22 - 29 mmol/L [facility] Anion Gap 13 12 - 20 [facility] Urea Nitrogen (BUN) 17(H) 9 - 16 mg/dL [facility] Creatinine, Serum 0.99 0.5 - 1.4 mg/dL [facility] Creatinine Clr Calc Pharmacy 67.0 [facility] Comment:eGFR (calculated fro m the MDRD study equation) and eCrCl(calculated from the Cockcroft-Gault equation) are based ondifferent parameters and may not yield comparable results.If eCrCl result is absurd, please check patient'sheight/weight. Estimated Glomerular Filt Rate >60 [facility] Comment:Chronic Kidney Disea se: Estimated GFR < 60 mL/min/1.52z7Pwagbb Kidney Disease: Estimated GFR < 15 mL/min/1.73m2 Glucose 97 60 - 115 mg/dL [facility] Calcium 9.9 8.4 - 10.2 mg/dL [facility] Bilirubin, Total 1.2(H) 0.0 - 1.0 mg/dL [facility] Aspartate Amino Transferase 21 5 - 37 U/L [facility] Alanine Aminotransferase 14 0 - 40 U/L [facility] Total Protein 7.6 6.5 - 8.0 g/dL [facility] Albumin Level 4.4 3.5 - 5.0 g/dL [facility] Alkaline Phosphatase 62 39 - 117 U/L [facility] 07/07/2024 11:0 5 AM EDT 07/07/2024 11:05 AM EDT us Generic External Data Provider LAB BLOOD ORDERAB LES Final Result [facility] [address] [place] [address] [phone] * XR Hip 2 or 3 Views Left (06/10/2024 9:41 AM EDT) Anatomical Region Laterality Modality Lower Extremities, Hip Left Radiograp hic Imaging 06/10/2024 9:41 AM EDT Narrative 06/10/2024 10:22 AM EDT ?[facility] ?[address] ?[place] [address] ?XRay Report ? Signed ? Patient: Morataya,Juvenal ?MR#: [id number] ?? 6 ? : 1960 ?Acct:[id number] ? Age/Sex: 64 / M ?ADM Date: 06/10/24 ? Loc: HO.HHCX ? Attending Dr: Kimberly Fay MD ? Ordering Physician: Kimberly Fay MD ?? Date of Service: 06/10/24 ?? Procedure(s): XR hip LT min 2V ?? Accession Number(s): [id number] ? cc: Kimberly Fay MD ? EXAMINATION: [...] DD/ 0941 ? TD/TT: 06/10/24 1000 ? Meteorological Aide: MSM ? Procedure Note Laron, Image - 06/10/[address] [address] XRay Report Signed Patient: Juvenal MoratayaMR#: [id number] 6 : 8Acct:[id number] Age/Sex: 64 / MADM Date: 06/10/24 Loc: HO.HHCX Attending Dr: Kimberly Fay MD Ordering Physician: Kimberly Fay MD Date of Service: 06/10/24 Procedure(s): XR hip LT min 2V Accession Number(s): [id number] cc: Kimberly Fay MD EXAMINATION: XR HIP, [...] 06/10/24 1020 DD/ 0941 TD/TT: 06/10/24 1000 Meteorological Aide: MSM us Kimberly Fay MD IMG XR [...] 10:31 AM EST) Triglycerides 118 <150 mg/dL [facility] Comment:Desirable Triglyceri de: less than 150 mg/dLBorderline High Triglyceride 150-199 mg/dLHigh Triglyceride: 200-499 mg/dLVery High Triglyceride: greater than or equal to 5OO mg/dL Cholesterol 185 <200 mg/dL [facility] Comment:Desirable Cholestero l: less than 200 mg/dLBorderline High Cholesterol: 200-239 mg/dLHigh Cholesterol: greater than 239 mg/dL LDL Cholesterol Calculated 126(H) <100 mg/dL [facility] Comment:Desirable LDL: less than 100 mg/dLNear Optimal/Above Optimal LDL: 110- 129 mg/dLBorderline High LDL: 130-159 mg/dLHigh LDL: 160-189 mg/dLVery High LDL: greater than or equal to 190 mg/dL HDL Cholesterol 36(L) >40 mg/dL [facility] Comment:Desirable HDL: great er than 40 mg/dL Note: This HDL assay may give artificially low results in patients with liver disease. Blood Venous blood specimen / Unknown 02/09/2024 10:31 AM EST 02/09/2024 2:04 PM EST Kimberly Fay MD LAB BLOOD ORDERABLES Final Resul t [facility] [address] [place] [address] [phone] * POCT HGB A1C (02/09/2024 10:00 AM EST) Hemoglobin A1C 5.5 4.0 - 6.0 % QC Media Lot # [id number] Lot# Expiration Date [id number] Blood 02/09/2024 10:0 0 AM EST Kimberly Fay MD POINT OF CARE TEST ENTER/EDIT OR DERABLES Final Result * Albumin, Random Urine W/Creatinine (12/17/2022 9:40 AM EDT) Creatinine, Urine 248.22 mg/dL [facility] Microalbumin Urine 9.0 mg/L [facility] Microalbum Creatinine Ratio Ur 3.6 <30 ug/mg cr [facility] Comment:Albumin/Creatinine R atio Reference Ranges: Normal: < 30 ug/mg creatinine Microalbuminuria: 30 - 300 ug/mg creatinineClinical Albuminuria: > 300 ug/mg creatinine 12/17/2022 9:40 AM EDT 12/17/2022 2:43 PM EDT us Kimberly Fay MD LAB URINE ORDERABLES Final Resul t [facility] [address] [place] [address] [phone] from Last 3 Months or Most Recently Relevant to Health Maintenance Insurance [facility] Care Teams Timber Buyer Relationship Specialty Start Date End Date Kimberly Fay MD [address] [place] [phone] PCP - General Family Medicine 06/24/12
--- OUTSIDE RECORDS SUMMARY | 2024-07-14 06:16 | XMS_ITS | Encounter Summary ---
Author Organization [employer] Address [address] [place] [address] Care Team Providers Care Machine Wiper Name Role Phone Kimberly Fay MD Primary Care Provider [phone] Reason for Visit * Reason Comments Med Refill Encounter Details Date Type Department Care Team ([facility] Contact Info) Description 03/16/2024 Refill [facility] MED & PEDS [address] [place], [place] [phone] Kimberly Fay MD [address] [place] [address] Social History Tobacco Use Types Packs/Day Years [...] [facility] MED & PEDS [address] [place] [address] Quan Fairchild MD [address] [place] [address] 08/18/2024 11:30 AM EDT Office Visit [facility] MED & PEDS [address] [place] [address] Kimberly Fay MD [address] [place] [address] documented as of this encounter Visit Diagnoses Not on filedocumented in this encounter Additional Health Concerns Assessment Noted Time PHQ-9 Depression Total Score: 3 03/29/19 23 1:20 PM EST documented as of this encounter Care Teams Machine Wiper Relationship Specialty Start Date End Date Kimberly Fay MD [address] [place] [address] PCP - General Family Medicine 06/24/12 documented as of this encounter
== END 2024-07-13 06:13 | disposition home or self-care (01) ==
LOC: HO.HOSX 06:12
PROVIDERS: Visit Provider Physician Assistant
DX: M25.559 Pain in unspecified hip (principal); M16.12 Unilateral primary osteoarthritis, left hip
CPT/HCPCS: 72170; 99202

== ENCOUNTER 2024-07-13 09:59 | Outpatient (AMB) | payer OTHER, SELFPAY ==
--- NOTE | 2024-07-13 10:16 | MHC.OFFVIS ---
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 Patient was seen by his PCP who had ordered x-rays and referred to orthopedics. Denies injury. Patient described his pain as an ache and his pain increases with movement and weight bear. He states that his pain started about a month and a half ago. Patient reports that he was given medication form his PCP which is giving him relief today. He states that his pain is near the glutes and it radiates up to his lower back. Patient notices that his pain is worse when walking and getting up from a sitting position. 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 Morataya is a 64-year-old male who presents to the office today for evaluation of his left hip. He reports that about a month and a half ago he had a sudden increase in left hip pain. He reports that the area of pain was more in the glutes and radiated up to his lower back. However, the patient reports that similar symptoms developed on the right leading to a right total hip replacement that was done at [facility]. He does understand that he has left hip arthritis and is looking to establish care to see if further surgical intervention is warranted at this time. The patient presents to the office today after taking oral steroids prescribed by his PCP that resolved his symptoms completely. He is not having any pain or discomfort at this time. [facility] Medical History (Updated 07/13/24 @ 10:28 by Elis Almonte PA-C) Teeth missing Schizophrenia Neck pain Arthritis Hx of renal calculi Depression Anxiety Insomnia COPD (chronic obstructive pulmonary disease) Murmur, cardiac Hx of hepatitis C Left inguinal hernia Right inguinal hernia Bipolar affective disorder in remission Type 2 diabetes mellitus HTN (hypertension) Surgical History (Updated 07/07/24 @ 10:16 by Anna Strong RN) Hx of eye surgery (~2023) Hx of right inguinal hernia repair (02/2023) History of hernia surgery Hx of shoulder surgery Hx of left inguinal hernia repair History of right hip replacement Family History (Updated 05/14/24 @ 15:07 by Carolina Awad CMA) Maternal Grandmother DM2 (diabetes mellitus, type 2) Brother Diabetes mellitus type 1 Sister Diabetes mellitus type 1 Social History (Updated 07/13/24 @ 10:20 by Giselle Shah) Are you a primary regular senior care provider to a significant other at home: No Do you presently have visiting nurse or other home services: No Alcohol intake: former Patient Tobacco Use Status: Former Tobacco user Tobacco use type: Cigarette Current occupational status: disabled Review of Systems Const All systems reviewed & are unremarkable except as noted in HPI and below Physical Exam Vital Signs: BMI result Body Mass Index 29.4 Const General: cooperative, healthy appearing and no acute distress Resp Effort & Inspection: normal respiratory effort and able to speak in complete sentences Cardio Rate: regular rate Peripheral pulses: Peripheral pulses 2+ throughout Skin Lesions: no lesions Rashes: no rashes Extrem Other: Left hip: Normal to inspection. No ecchymosis, erythema, or edema. Full hip ROM in all planes. No tenderness to palpation over the greater trochanteric bursa. 5/5 strength with resisted hip flexion, knee extension, abduction, and abduction. Able to perform straight leg raise. NVI. Assessment & Plan Assessment & Plan (1) Osteoarthritis of left hip: Code(s): M16.12 - Unilateral primary osteoarthritis, left hip Category: Medical Plan Mr. Morataya is a 64-year-old male who presents to the office today for evaluation of his left hip. He reports that about a month and a half ago he had a sudden increase in left hip pain. He reports that the area of pain was more in the glutes and radiated up to his lower back. However, the patient reports that similar symptoms developed on the right leading to a right total hip replacement that was done at [facility]. He does understand that he has left hip arthritis and is looking to establish care to see if further surgical intervention is warranted at this time. The patient presents to the office today after taking oral steroids prescribed by his PCP that resolved his symptoms completely. He is not having any pain or discomfort at this time. While in the office today, we discussed the role of surgical versus nonsurgical intervention. At this time the patient is not experiencing any pain or discomfort. Therefore, we have deferred on any orthopedic treatment needed at this time. If the patient should happen to have an increase in pain in the future I am happy to see him at any time and we can discuss further interventions. He will follow up PRN, sooner if needed X-rays of the pelvis which were obtained while in the office today and were reviewed by me, Elis Almonte PA-C, revealed left hip osteoarthritis. Right hip intact arthroplasty. Orders: Orders XR pelvis 1-2V Today M25.559 - Pain in unspecified hip Coding Level of Care Code New Pt Level 3 (33609) Diagnoses Osteoarthritis of left hip M16.12
[2024-07-13 10:20] VITALS: BMI 29.4
--- OUTSIDE RECORDS SUMMARY | 2024-07-13 11:20 | XMS_ITS | Encounter Summary ---
Author Organization [employer] Address [address] 7[address] [place] [address] Care Team Providers Care Cottage Supervisor Name Role Phone Kimberly Fay MD Primary Care Provider [phone] Reason for Referral * Imaging (Routine) - Closed Specialty Diagnoses / Procedures Referred By Contron t Referred To Contact Radiology Diagnoses Right inguinal hernia Procedures Us Pelvis complete Kimberly Fay MD [address] [place] [address] Phone: tel: fax: [facility] fax: Referral ID Status Reason Start Date Expiration Date Visits Re quested Visits Authorized [id number] Closed 12/19/2022 12/19/2023 1 1 Encounter Details Date Type Department Care Team ([facility] st Contact Info) Description 12/19/2022 Orders Only [facility] MED & PEDS [address] [place] [address] Kimberly Fay MD [address] [place] [address] Right inguinal hernia (Primary Dx) Social History [...] AM EDT Office Visit [facility] [address] [place] [address] Quan Fairchild MD [address] [place] [address] 08/18/2024 11:30 AM EDT Office Visit [facility] [address] [place] [address] Kimberly Fay MD [address] [place] [address] Scheduled Orders Name Type Priority Associated Diagnoses [...] documented as of this encounter Care Teams Cottage Supervisor Relationship Specialty Start Date End Date Kimberly Fay MD [address] [place] [address] PCP - General Family Medicine 06/24/12 documented as of this encounter
--- OUTSIDE RECORDS SUMMARY | 2024-07-13 11:21 | XMS_ITS | Encounter Summary ---
Author Organization [employer] Address [address] [address] 7t [place] [address] Care Team Providers Care Power Transmission Engineer Name Role Phone Kimberly Fay MD Primary Care Provider [phone] Reason for Visit * Reason Comments Med Refill Encounter Details Date Type Department Care Team ([facility] Contact Info) Description 03/16/[address] [facility] CHC MED & PEDS [address] [place], [place] [phone] Kimberly Fay MD [address] [place] [address] Social History Tobacco Use Types Packs/Day Years [...] [facility] [address] [place] [address] Quan Fairchild MD [address] [place] [address] 08/18/2024 11:30 AM EDT Office Visit [facility] MED & PED[facility] [address] [place] [address] Kimberly Fay MD [address] [place] [address] documented as of this encounter Visit Diagnoses Not on filedocumented in this encounter Additional Health Concerns Assessment Noted Time PHQ-9 Depression Total Score: 3 03/29/19 23 1:20 PM EST documented as of this encounter Care Teams Power Transmission Engineer Relationship Specialty Start Date End Date Kimberly Fay MD [address] [place] [address] PCP - General Family Medicine 06/24/12 documented as of this encounter
--- OUTSIDE RECORDS SUMMARY | 2024-07-13 11:21 | XMS_ITS | Clinical Summary ---
Author Organization [employer] Address [address] 7[address] [place] [address] Care Team Providers Care Med Admin Name Role Phone Kimberly Fay MD Primary Care Provider [phone] Allergies Active Allergy Reactions Criticality Noted Date [...] 56 Film 1 5 08/04/19 25 Active Lancets (OneTouch Delica Plus [id number]) [facility] TEST BLOOD SUGAR TWICE DAILY 100 each 6 5 Active predniSONE (Deltasone) 20 MG tablet Take [...] Encounters Date Type Department Care Team Description 07/07/2024 Orders Only GENERIC EXTERNAL DATA DEPARTMENT Provider, Generic External Data 07/05/2024 Refill [facility] MED & PEDS 505 [place] [address] Kimberly Fay MD 06/17/2024 Refill [facility] MED & PEDS [address] [place] [address] Kimberly Fay MD 06/10/2024 9:20 AM EDT Office Visit [facility] [address] [place] [address] Kimberly Fay MD Left hip pain (Primary Dx) 06/10/2024 Telephone [facility] [address] [place] [address] Kimberly Fay MD 06/08/2024 Telephone [facility] [address] [place] [address] Quan Fairchild MD 06/08/2024 Telephone [facility] [address] [place] [address] Randi Porter RN 06/07/2024 11:00 AM EDT Clinical Support [facility]ED[facility] [address] [place] [address] Randi Porter, RN Opioid type dependence, continuous (CMS/HCC) (Primary Dx) 06/07/2024 Travel 06/04/2024 Telephone [facility] [address] [place] [address] Kimberly Fay MD Nurse Triage 06/02/2024 Refill [facility] MED & PEDS [address] [place] [address] Kimberly Fay MD 05/31/2024 Refill [facility] [address] [place] [address] Randi Porter, RN Opioid type dependence, continuous (CMS/[facility]) 05/08/2024 Refill [facility] MED & PEDS [address] [place] [address] Pedro Gallegos MD Primary hypertension 05/08/2024 Refill [facility] MED & PEDS [address] [place] [address] Kimberly Fay MD from Last 3 Months Immunizations Name Administration [...] Description 08/02/2024 10:00 AM EDT Office Visit [facility]EDS [address] [place] [address] Quan Fairchild MD [address] [place] [address] 08/18/2024 11:30 AM EDT Office Visit [facility] MED [facility] PED[facility] [address] [place] [address] Kimberly Fay MD [address] [place] [address] Health Maintenance Due Date Last Done Comments [...] Procedure Name Priority Date/Time Associated Diagnosis Comments COMPREHENSIVE METABOLIC PANEL Routine 07/07/2024 11:05 AM EDT CBC Routine 07/07/2024 11:05 AM EDT XR HIP 2 OR 3 VIEWS LEFT Routine 06/10/2024 9:41 AM EDT Left hip pain POCT LB-14 URINE DRUG SCREEN Routine 06/07/2024 11:16 AM EDT Opioid type dependence, continuous (CMS/HCC) LIPID PANEL, [...] Recently Relevant to Health Maintenance Results * (ABNORMAL) CBC (07/07/2024 11:05 AM EDT) Pathologist [facility] [place] White Blood Count 9.1 4.8 - 10.8 X10*3/uL [facility] Red Blood Count 4.63 4.60 - 5.80 X10*6/uL [facility] Hemoglobin 13.9(L) 14.0 - 18.0 g/dl [facility] Hematocrit 40.1(L) 42.0 - 52.0 % [facility] Mean Corpuscular Volume 86.6 80.0 - 98.0 fL [facility] Mean Corpuscular Hemoglobin 30.0 27.0 - 33.0 pg [facility] Mean Corpuscular HGB Conc 34.7 31.0 - 36.0 g/dl [facility] Red Cell Distribution Width 12.4 11.0 - 16.0 % [facility] Platelet Count 270 160 - 400 X10*3/uL [facility] Mean Platelet Volume 9.7 9.4 - 12.4 fL [facility] NRBC Pct Auto 0.0 0.0 - 0.2 /100WBC [facility] NRBC Abs Auto 0.000 0.0 - 0.012 X10*3/uL [facility] 07/07/2024 11:0 5 AM EDT 07/07/2024 11:05 AM EDT us Generic External Data Provider LAB BLOOD ORDERAB LES Final Result [facility] [address] [place] [address] [phone] * (ABNORMAL) Comprehensive Metabolic Panel (07/07/2024 11:05 AM EDT) Pathologist [facility] [place] Sodium 140 135 - 145 mmol/L [facility] Potassium 4.5 3.3 - 5.1 mmol/L [facility] Chloride 105 96 - 108 mmol/L [facility] Carbon Dioxide 27 22 - 29 mmol/L [facility] Anion Gap 13 12 - 20 [facility] Urea Nitrogen (BUN) 17(H) 9 - 16 mg/dL [facility] Creatinine, Serum 0.99 0.5 - 1.4 mg/dL [facility] Creatinine Clr Calc Pharmacy 67.0 [facility] Comment:eGFR (calculated fro m the MDRD study equation) and eCrCl(calculated from the Cockcroft-Gault equation) are based ondifferent parameters and may not yield comparable results.If eCrCl result is absurd, please check patient'sheight/weight. Estimated Glomerular Filt Rate >60 [facility] Comment:Chronic Kidney Disea se: Estimated GFR < 60 mL/min/1.37b6Yrjpoe Kidney Disease: Estimated GFR < 15 mL/min/1.73m2 Glucose 97 60 - 115 mg/dL [facility] Calcium 9.9 8.4 - 10.2 mg/dL [facility] Bilirubin, Total 1.2(H) 0.0 - 1.0 mg/dL [facility] Aspartate Amino Transferase 21 5 - 37 U/L [facility] Alanine Aminotransferase 14 0 - 40 U/L [facility] Total Protein 7.6 6.5 - 8.0 g/dL [facility] Albumin Level 4.4 3.5 - 5.0 g/dL [facility] Alkaline Phosphatase 62 39 - 117 U/L [facility] 07/07/2024 11:0 5 AM EDT 07/07/2024 11:05 AM EDT us Generic External Data Provider LAB BLOOD ORDERAB LES Final Result [facility] [address] [place] [address] [phone] * XR Hip 2 or 3 Views Left (06/10/2024 9:41 AM EDT) Anatomical Region Laterality Modality Lower Extremities, Hip Left Radiograp hic Imaging 06/10/2024 9:41 AM EDT Narrative 06/10/2024 10:22 AM EDT ?[facility] ?[address] ?[place] [address] ?XRay Report ? Signed ? Patient: Morataya,Juvenal ?MR#: [id number] ?? 6 ? : 1960 ?Acct:[id number] ? Age/Sex: 64 / M ?ADM Date: 06/10/24 ? Loc: HO.HHCX ? Attending Dr: Kimberly Fay MD ? Ordering Physician: Kimberly Fay MD ?? Date of Service: 06/10/24 ?? Procedure(s): XR hip LT min 2V ?? Accession Number(s): [id number] ? cc: Kimberly Fay MD ? EXAMINATION: [...] DD/ 0941 ? TD/TT: 06/10/24 1000 ? Creel Operator: MSM ? Procedure Note Laron, Image - 06/10/[address] [address] XRay Report Signed Patient: Juvenal MoratayaMR#: [id number] 6 : 8Acct:[id number] Age/Sex: 64 / MADM Date: 06/10/24 Loc: HO.HHCX Attending Dr: Kimberly Fay MD Ordering Physician: Kimberly Fay MD Date of Service: 06/10/24 Procedure(s): XR hip LT min 2V Accession Number(s): [id number] cc: Kimberly Fay MD EXAMINATION: XR HIP, [...] 06/10/24 1020 DD/ 0941 TD/TT: 06/10/24 1000 Creel Operator: MSM us Kimberly Fay MD IMG XR PROCEDURES [...] CARE TEST ENTER/EDIT ORDERABLES Final Result * (ABNORMAL) Lipid Panel, Standard (02/09/2024 10:31 AM EST) Triglycerides 118 <150 mg/dL [facility] Comment:Desirable Triglyceri de: less than 150 mg/dLBorderline High Triglyceride 150-199 mg/dLHigh Triglyceride: 200-499 mg/dLVery High Triglyceride: greater than or equal to 5OO mg/dL Cholesterol 185 <200 mg/dL [facility] Comment:Desirable Cholestero l: less than 200 mg/dLBorderline High Cholesterol: 200-239 mg/dLHigh Cholesterol: greater than 239 mg/dL LDL Cholesterol Calculated 126(H) <100 mg/dL [facility] Comment:Desirable LDL: less than 100 mg/dLNear Optimal/Above Optimal LDL: 110- 129 mg/dLBorderline High LDL: 130-159 mg/dLHigh LDL: 160-189 mg/dLVery High LDL: greater than or equal to 190 mg/dL HDL Cholesterol 36(L) >40 mg/dL [facility] Comment:Desirable HDL: great er than 40 mg/dL Note: This HDL assay may give artificially low results in patients with liver disease. Blood Venous blood specimen / Unknown 02/09/2024 10:31 AM EST 02/09/2024 2:04 PM EST Kimberly Fay MD LAB BLOOD ORDERABLES Final Resul t [facility] [address] [place] [phone] * POCT HGB A1C (02/09/2024 10:00 AM EST) Hemoglobin A1C 5.5 4.0 - 6.0 % QC Media Lot # [id number] Lot# Expiration Date [id number] Blood 02/09/2024 10:0 0 AM EST Kimberly Fay MD POINT OF CARE TEST ENTER/EDIT OR DERABLES Final Result * Albumin, Random Urine W/Creatinine (12/17/2022 9:40 AM EDT) Creatinine, Urine 248.22 mg/dL [facility] Microalbumin Urine 9.0 mg/L [facility] Microalbum Creatinine Ratio Ur 3.6 <30 ug/mg cr [facility] Comment:Albumin/Creatinine R atio Reference Ranges: Normal: < 30 ug/mg creatinine Microalbuminuria: 30 - 300 ug/mg creatinineClinical Albuminuria: > 300 ug/mg creatinine 12/17/2022 9:40 AM EDT 12/17/2022 2:43 PM EDT us Kimberly Fay MD LAB URINE ORDERABLES Final Resul t [facility] [address] [place] [address] [phone] from Last 3 Months or Most Recently Relevant to Health Maintenance Insurance [facility] Care Teams Med Admin Relationship Specialty Start Date End Date Kimberly Fay MD [address] [place] [address] PCP - General Family Medicine 06/24/12
--- OUTSIDE RECORDS SUMMARY | 2024-07-13 11:21 | XMS_ITS | Encounter Summary ---
Author Organization [employer] Address [address] 7[address] [place] [address] Care Team Providers Care Gas Plant Specialist Name Role Phone Kimberly Fay MD Primary Care Provider [phone] Reason for Visit * Reason Comments Med Refill Encounter Details Date Type Department Care Team ([facility] Contact Info) Description 02/11/2024 Refill [facility] MED & PEDS [address] [place], [place] [phone] Kimberly Fay MD [address] [place] [address] Social History Tobacco Use Types Packs/Day Years [...] [facility] [address] [place] [address] Quan Fairchild MD [address] [place] [address] 08/18/2024 11:30 AM EDT Office Visit [facility] [address] [place] [address] Kimberly Fay MD [address] [place] [address] documented as of this encounter Visit Diagnoses Not on filedocumented in this encounter Additional Health Concerns Assessment Noted Time PHQ-9 Depression Total Score: 3 03/29/19 23 1:20 PM EST documented as of this encounter Care Teams Gas Plant Specialist Relationship Specialty Start Date End Date Kimberly Fay MD [address] [place] [address] PCP - General Family Medicine 06/24/12 documented as of this encounter
--- OUTSIDE RECORDS SUMMARY | 2024-07-13 11:21 | XMS_ITS | Encounter Summary ---
Author Organization [employer] Address [address] [facility] [address] [place] [address] Care Team Providers Care Soil Sort Worker Name Role Phone Kimberly Fay MD Primary Care Provider [phone] Reason for Visit * Reason Comments Med Refill Encounter Details Date Type Department Care Team ([facility] Contact Info) Description 07/20/2023 Refill [facility] MED & PEDS [address] [place], [place] [phone] Kimberly Fay MD [address] [place] [address] Social History Tobacco Use Types Packs/Day Years [...] 08/02/2024 10:00 AM EDT Office Visit [facility] PEDS [address] [place] [address] Quan Fairchild MD [address] [place] [address] 08/18/2024 11:30 AM EDT Office Visit [facility] [address] [place] [address] Kimberly Fay MD [address] [place] [address] documented as of this encounter Visit Diagnoses Not on filedocumented in this encounter Additional Health Concerns Assessment Noted Time PHQ-9 Depression Total Score: 3 03/29/19 23 1:20 PM EST documented as of this encounter Care Teams Soil Sort Worker Relationship Specialty Start Date End Date Kimberly Fay MD [address] [place] [address] PCP - General Family Medicine 06/24/12 documented as of this encounter
--- OUTSIDE RECORDS SUMMARY | 2024-07-13 11:21 | XMS_ITS | Encounter Summary ---
Author Organization [employer] Address [address] [place] [address] Care Team Providers Care Whale Trainer Name Role Phone Kimberly Fay MD Primary Care Provider [phone] Reason for Visit * Reason Comments Med Refill Encounter Details Date Type Department Care Team ([facility] Contact Info) Description 02/12/2024 Refill [facility] MED & PEDS [address] [place], [place] [phone] Kimberly Fay MD [address] [place] [address] Social History Tobacco Use Types Packs/Day Years [...] [facility] [address] [place] [address] Quan Fairchild MD [address] [place] [address] 08/18/2024 11:30 AM EDT Office Visit [facility] MED & PEDS [address] [place] [address] Kimberly Fay MD [address] [place] [address] documented as of this encounter Visit Diagnoses Not on filedocumented in this encounter Additional Health Concerns Assessment Noted Time PHQ-9 Depression Total Score: 3 03/29/19 23 1:20 PM EST documented as of this encounter Care Teams Whale Trainer Relationship Specialty Start Date End Date Kimberly Fay MD [address] [place] [address] PCP - General Family Medicine 06/24/12 documented as of this encounter
--- OUTSIDE RECORDS SUMMARY | 2024-07-13 11:21 | XMS_ITS | Encounter Summary ---
Author Organization [employer] Address [address] [place] [address] Care Team Providers Care Customer Success Director Name Role Phone Kimberly Fay MD Primary Care Provider [phone] Reason for Visit * Reason Comments Med Change Request Encounter Details Date Type Department Care Team ([facility] Contact Info) Description 11/16/2022 Refill [facility] MED & PEDS [address] [place] [address] Kimberly Fay MD [address] [place] [address] Social History Tobacco Use Types Packs/Day Years [...] Upcoming Encounters Date Type Department Care Team ([facility] Contact Info) Description 08/02/2024 10:00 AM EDT Office Visit [facility] MED [facility] PEDS [address] [place] [address] Quan Fairchild MD [address] [place] [address] 08/18/2024 11:30 AM EDT Office Visit [facility] MED & PEDS [address] [place] [address] Kimberly Fay MD [address] [place] [address] documented as of this encounter Visit Diagnoses Not on filedocumented in this encounter Additional Health Concerns Assessment Noted Time PHQ-9 Depression Total Score: 3 03/29/19 23 1:20 PM EST documented as of this encounter Care Teams Customer Success Director Relationship Specialty Start Date End Date Kimberly Fay MD [address] [place] [address] PCP - General Family Medicine 06/24/12 documented as of this encounter
--- OUTSIDE RECORDS SUMMARY | 2024-07-13 11:21 | XMS_ITS | Encounter Summary ---
Author Organization [employer] Address [address] [place] [address] Care Team Providers Care Sales And Marketing Vice President Name Role Phone Kimberly Fay MD Primary Care Provider [phone] Reason for Visit * Reason Comments Med Refill Encounter Details Date Type Department Care Team ([facility] st Contact Info) Description 06/23/2022 Refill [facility] [address] [place] [address] Alexandro Canales, BDS [address] [place], [place] [phone] Dental caries Social History Tobacco Use Types [...] [facility] [address] [place] [address] Quan Fairchild MD [address] [place] [address] 08/18/2024 11:30 AM EDT Office Visit [facility] MED & PEDS [address] [place] [address] Kimberly Fay MD [address] [place] [address] documented as of this encounter Visit Diagnoses Diagnosis Dental caries Unspecified dental caries documented in this encounter Additional Health Concerns Assessment Noted Time PHQ-9 Depression Total Score: 3 03/29/19 23 1:20 PM EST documented as of this encounter Care Teams Sales And Marketing Vice President Relationship Specialty Start Date End Date Kimberly Fay MD [address] [place] [address] PCP - General Family Medicine 06/24/12 documented as of this encounter
--- OUTSIDE RECORDS SUMMARY | 2024-07-13 11:21 | XMS_ITS | Data Portability ---
Author Organization [email or web address] [place] - Replaced by [facility] Address [address] [place] [phone] Care Team Providers Care Thermodynamics Teacher Name Role Phone HIM [facility] OTHER Assessment No assessment recorded. Plan of Treatment Reminders Order Date Submit Date Provider Last Modified By Organization Details Last Modified Time Details Appointments None recorded. Lab BMP, serum or plasma [address], [address] 10:35:15 Referral None recorded. Procedures None recorded. Surgeries None recorded. Imaging electrocard iogram [address], [address] 10:35:16 Medication Orders hydrochloro thiazide 12.5 mg tablet 2023 [facility][id number], [address] [place], [address], 10:34:55 Patient TargetsNo targets recorded. Patient InstructionsNo instructions recorded. Reason for Referral None Reported. Results Created Date Observation Date Name Description Value Unit Range Abnormal Flag Note LastModifiedBy Organization Detail LastModifiedTime 01/12/20 24 elect rocar diogr am No observ ation record ed. [address], [phone] 01/12/2024 10:35:06 Result Notes None recorded. Procedures Surgical History None recorded. Imaging Results Imaging Date Name Status LastModified by Organization Details LastModified Time 01/12/2024 electrocardiogram completed [address], [phone] 01/12/2024 10:35:06 Procedure Notes None recorded. Medical [...] SNOMED-CT Code Diagnosis ICD10 Code Diagnosis Note [id number] Jerri Jeffries MD Main - instED [address] [place] [phone] 01/12/2024 10:23:33 2024 10:31:35 Essential hypertension [id number] I10 Evaluation in the field was performed by my assembling motor builder colleague, as noted above, I provided real-time [...] but not clearly related to BP. On assembling motor builder eval BP 150/87 rest wnl, exam with [...] Member ID Guarantor Name 01/12/2024 1 [facility] - DOS ON OR AFTER 2022 - DUAL ELIGIBLE - PENITENTIARY OPTIONS AND ONE CARE (MEDICARE REPLACEMENT/ADV ANTAGE - HMO) Juvenal Morataya [id number] Juvenal Morataya Notes Date Note Type Note Provider Name and Address Organization Details Recorded Time 01/12/2024 text/html [facility] Nurse Triage Notes (Felicia Diaz): Reason For Request: Patient is having Blood Pressure problems, seems high, and fluctuating Chief Complaints: Hypertension PMH: Hypertension, COPD/Asthma Other Allergies: one that was an eye drop unsure the name Comments: Air Carrier Operations Inspector verified the member's name//address and phone number. [...] s/s and seek emergency treatment if needed Head Bucker Organization Information for [facility] [employer] Legal Name: [facility] Address: [address] [place] [address], [place] [address], Biology Instructor: Jalil Pina MD CLIA No.: [id number] Head Bucker POC Test Results from [facility] EKG [...] .................... .................... .................... .................... .................... .................... . Head Bucker Note From [facility]: Pt with hx [...] . Disposition: Fulfilled Jerri Jeffries MD [address] [facility], [place], [address], [place] [facility] 01/12/2024 11:47:27
--- OUTSIDE RECORDS SUMMARY | 2024-07-13 11:21 | XMS_ITS | Encounter Summary ---
Author Organization [employer] Address [address] 7t [place] [address] Care Team Providers Care Rotor Casting Machine Operator Name Role Phone Kimberly Fay MD Primary Care Provider [phone] Reason for Visit * Reason Comments Med Change Request Encounter Details Date Type Department Care Team ([facility] Contact Info) Description 11/15/2022 Refill [facility] MED & PEDS [address] [place] [address] Kimberly Fay MD 505 [place] [address] Social History Tobacco Use Types Packs/Day Years [...] Upcoming Encounters Date Type Department Care Team ([facility] Contact Info) Description 08/02/2024 10:00 AM EDT Office Visit [facility] MED & PEDS [address] [place] [address] Quan Fairchild MD [address] [place] [address] 08/18/2024 11:30 AM EDT Office Visit [facility] MED & PEDS [address] [place] [address] Kimberly Fay MD [address] [place] [address] documented as of this encounter Visit Diagnoses Not on filedocumented in this encounter Additional Health Concerns Assessment Noted Time PHQ-9 Depression Total Score: 3 03/29/19 23 1:20 PM EST documented as of this encounter Care Teams Rotor Casting Machine Operator Relationship Specialty Start Date End Date Kimberly Fay MD [address] [place] [address] PCP - General Family Medicine 06/24/12 documented as of this encounter
--- OUTSIDE RECORDS SUMMARY | 2024-07-13 11:21 | XMS_ITS | Encounter Summary ---
Author Organization [employer] Address [address] 7[address] [place] [address] Care Team Providers Care Bee Keeper Name Role Phone Kimberly Fay MD Primary Care Provider [phone] Encounter Details Date Type Department Care Team ([facility] st Contact Info) Description 01/09/2024 Telephone [facility] ADULT D[facility] [address] [place] [address] Alexandro Canales, BDLacie [address] [place], [place] [phone] Social History Tobacco Use Types Packs/Day Years [...] Description 08/02/2024 10:00 AM EDT Office Visit [facility] MED & PEDS [address] [place] [address] Quan Fairchild MD [address] [place] [address] 08/18/2024 11:30 AM EDT Office Visit [facility] MED & PEDS [address] [place] [address] Kimberly Fay MD [address] [place] [address] documented as of this encounter Visit Diagnoses Not on filedocumented in this encounter Additional Health Concerns Assessment Noted Time PHQ-9 Depression Total Score: 3 03/29/19 23 1:20 PM EST documented as of this encounter Care Teams Bee Keeper Relationship Specialty Start Date End Date Kimberly Fay MD [address] [place] [address] PCP - General Family Medicine 06/24/12 documented as of this encounter
== END 2024-07-13 11:04 | disposition home or self-care (01) ==
LOC: HO.HOS 10:00
PROVIDERS: Visit Provider Physician Assistant
DX: M16.12 Unilateral primary osteoarthritis, left hip (principal)
CPT/HCPCS: 99203

== ENCOUNTER → 2024-07-13 10:01 | Outpatient (BNV) | payer OTHER, SELFPAY | PROVIDERS: Visit Provider Radiology Diagnostic Radiology | DX: M25.552 Pain in left hip (principal) | CPT/HCPCS: 72170 ==

== ENCOUNTER 2024-07-23 05:41 | Day surgery (SDC) | payer OTHER, SELFPAY ==
--- OUTSIDE RECORDS SUMMARY | 2024-07-06 15:08 | XMS_ITS | Encounter Summary ---
Author Organization [employer] Address [address] [address] 7[address] [place] [address] Care Team Providers Care Gas And Oil Servicer Name Role Phone Kimberly Fay MD Primary Care Provider [phone] Reason for Visit * Reason Comments Med Change Request Encounter Details Date Type Department Care Team ([facility] Contact Info) Description 11/16/2022 Refill [facility] CHC MED & PEDS [address] [place] [address] Kimberly Fay MD [address] [place] [address] Social History Tobacco Use Types Packs/Day Years [...] Upcoming Encounters Date Type Department Care Team ([facility] Contact Info) Description 08/02/2024 10:00 AM EDT Office Visit [facility] CHC MED & PEDS [address] [place] [address] Quan Fairchild MD [address] [place] [address] 08/18/2024 11:30 AM EDT Office Visit [facility] CHC MED & PEDS [address] [place] [address] Kimberly Fay MD [address] [place] [address] documented as of this encounter Visit Diagnoses Not on filedocumented in this encounter Additional Health Concerns Assessment Noted Time PHQ-9 Depression Total Score: 3 03/29/19 23 1:20 PM EST documented as of this encounter Care Teams Gas And Oil Servicer Relationship Specialty Start Date End Date Kimberly Fay MD [address] [place] [address] PCP - General Family Medicine 06/24/12 documented as of this encounter
--- OUTSIDE RECORDS SUMMARY | 2024-07-06 15:08 | XMS_ITS | Encounter Summary ---
Author Organization [employer] Address [address] 7[address] [place] [address] Care Team Providers Care Pluck Separator Name Role Phone Kimberly Fay MD Primary Care Provider [phone] Reason for Visit * Reason Comments Med Refill Encounter Details Date Type Department Care Team ([facility] Contact Info) Description 03/16/2024 Refill [facility] CHC MED & PEDS [address] [place], [place] [phone] Kimberly Fay MD [address] [place] [address] Social History Tobacco Use Types Packs/Day Years [...] 08/02/2024 10:00 AM EDT Office Visit [facility] MED & PEDS [address] [place] [address] Quan Fairchild MD [address] [place] [address] 08/18/2024 11:30 AM EDT Office Visit [facility] MED & PEDS [address] [place] [address] Kimberly Fay MD 505 [place] [address] documented as of this encounter Visit Diagnoses Not on filedocumented in this encounter Additional Health Concerns Assessment Noted Time PHQ-9 Depression Total Score: 3 03/29/19 23 1:20 PM EST documented as of this encounter Care Teams Pluck Separator Relationship Specialty Start Date End Date Kimberly Fay MD [address] [place] [address] PCP - General Family Medicine 06/24/12 documented as of this encounter
--- OUTSIDE RECORDS SUMMARY | 2024-07-06 15:08 | XMS_ITS | Encounter Summary ---
Author Organization [employer] Address [address] [facility] [address] 7[address] [place] [address] Care Team Providers Care Parts Interpreter Name Role Phone Kimberly Fay MD Primary Care Provider [phone] Reason for Visit * Reason Comments Med Refill Encounter Details Date Type Department Care Team ([facility] Contact Info) Description 02/12/[address] [facility] CHC MED & PEDS [address] [place], [place] [phone] Kimberly Fay MD [address] [place] [address] Social History Tobacco Use Types Packs/Day Years [...] Description 08/02/2024 10:00 AM EDT Office Visit [facility] MED & PEDS [address] [place] [address] Quan Fairchild MD [address] [place] [address] 08/18/2024 11:30 AM EDT Office Visit [facility] MED & PEDS [address] [place] [address] Kimberly Fay MD 505 [place] [address] documented as of this encounter Visit Diagnoses Not on filedocumented in this encounter Additional Health Concerns Assessment Noted Time PHQ-9 Depression Total Score: 3 03/29/19 23 1:20 PM EST documented as of this encounter Care Teams Parts Interpreter Relationship Specialty Start Date End Date Kimberly Fay MD [address] [place] [address] PCP - General Family Medicine 06/24/12 documented as of this encounter
--- OUTSIDE RECORDS SUMMARY | 2024-07-06 15:08 | XMS_ITS | Encounter Summary ---
Author Organization [employer] Address [address] [facility] [address] [address] [place] [address] Care Team Providers Care Priming Mixture Carrier Name Role Phone Kimberly Fay MD Primary Care Provider [phone] Encounter Details Date Type Department Care Team ([facility] st Contact Info) Description 01/09/2024 Telephone [facility] [address] [place] [address] Alexandro Canales, BDLacie [address] [place], [place] [phone] Social History Tobacco Use Types Packs/Day Years [...] 10:00 AM EDT Office Visit [facility] MED & PEDS [address] [place] [address] Quan Fairchild MD [address] [place] [address] 08/18/2024 11:30 AM EDT Office Visit [facility] MED & PEDS [address] [place] [address] Kimberly Fay MD 505 [place] [address] documented as of this encounter Visit Diagnoses Not on filedocumented in this encounter Additional Health Concerns Assessment Noted Time PHQ-9 Depression Total Score: 3 03/29/19 23 1:20 PM EST documented as of this encounter Care Teams Priming Mixture Carrier Relationship Specialty Start Date End Date Kimberly Fay MD [address] [place] [address] PCP - General Family Medicine 06/24/12 documented as of this encounter
--- OUTSIDE RECORDS SUMMARY | 2024-07-06 15:08 | XMS_ITS | Encounter Summary ---
Author Organization [employer] Address [address] [facility] [address] [address] [place] [address] Care Team Providers Care Semi Automatic Sewing Machine Operator Name Role Phone Kimberly Fay MD Primary Care Provider [phone] Reason for Visit * Reason Comments Med Refill Encounter Details Date Type Department Care Team ([facility] Contact Info) Description 02/11/[address] [facility] CHC MED & PEDS [address] [place], [place] [phone] Kimberly Fay MD [address] [place] [address] Social History Tobacco Use Types Packs/Day Years [...] [facility] MED & PEDS [address] [place] [address] Quan Fairchild MD [address] [place] [address] 08/18/2024 11:30 AM EDT Office Visit [facility] MED & PEDS [address] [place] [address] Kimberly Fay MD [address] [place] [address] documented as of this encounter Visit Diagnoses Not on filedocumented in this encounter Additional Health Concerns Assessment Noted Time PHQ-9 Depression Total Score: 3 03/29/19 23 1:20 PM EST documented as of this encounter Care Teams Semi Automatic Sewing Machine Operator Relationship Specialty Start Date End Date Kimberly Fay MD [address] [place] [address] PCP - General Family Medicine 06/24/12 documented as of this encounter
--- OUTSIDE RECORDS SUMMARY | 2024-07-06 15:08 | XMS_ITS | Encounter Summary ---
Author Organization [employer] Address [address] [facility] [address] [address] 7[address] [place] [address] Care Team Providers Care Senior Production Supervisor Name Role Phone Kimberly Fay MD Primary Care Provider [phone] Reason for Referral * Imaging (Routine) - Closed Specialty Diagnoses / Procedures Referred By Contron t Referred To Contact Radiology Diagnoses Right inguinal hernia Procedures Us Pelvis complete Kimberly Fay MD [address] [place] [address] Phone: tel: fax: [facility] fax: Referral ID Status Reason Start Date Expiration Date Visits Re quested Visits Authorized [id number] Closed 12/19/2022 12/19/2023 1 1 Encounter Details Date Type Department Care Team ([facility] st Contact Info) Description 12/19/2022 Orders Only [facility] CHC MED & PEDS [address] [place] [address] Kimberly Fay MD [address] [place] [address] Right inguinal hernia (Primary Dx) Social History [...] Description 08/02/2024 10:00 AM EDT Office Visit [facility] MED & PEDS [address] [place] [address] Quan Fairchild MD [address] [place] [address] 08/18/2024 11:30 AM EDT Office Visit [facility] MED & PEDS [address] [place] [address] Kimberly Fay MD [address] [place] [address] Scheduled Orders Name Type Priority Associated Diagnoses [...] as of this encounter Care Teams Senior Production Supervisor Relationship Specialty Start Date End Date Kimberly Fay MD [address] [place] [address] PCP - General Family Medicine 06/24/12 documented as of this encounter
--- OUTSIDE RECORDS SUMMARY | 2024-07-06 15:08 | XMS_ITS | Clinical Summary ---
Author Organization [employer] Address [address] [facility] [address] [place] [address] Care Team Providers Care Machine Stacker Name Role Phone Kimberly Fay MD Primary Care Provider Allergies Active Allergy Reactions Criticality Noted Date Comments Amlodipine Shortness of breath,Palpitations High 10/2022 Medications zolpidem (Ambien) 10 MG tablet Take 10 mg by mouth if needed at bedtime. 2 Active perphenazine 2 MG tablet TAKE 1 TABLET BY MOUTH TWICE A DAY NEEDED FOR VOICES, PARANOIA, AGITATION 2 Active budesonide-formot eros (Symbicort) 160-4.5 MCG/ACT inhaler Inhale 2 puffs every 12 (twelve) hours. 2 Active albuterol 108 (90 Base) MCG/ACT inhaler INHALE TWO PUFFS FOUR TIMES DAILY 2 Active Denta 5000 Plus 1.1 % creamIndications: Dental caries APPLY A SMALL PEA SIZED AMOUNT AND BRUSH X2 MINUTES, SPIT AND DO NOT RINSE 153 g 3 Active glucose blood (FREESTYLE LITE) test strip USE TO TEST BLOOD SUGAR TWICE A DAY 100 strip 11 3 Active TRUEplus Lancets 33G misc USE TO TEST BLOOD SUGAR TWICE A DAY 100 each 11 3 Active Blood Glucose Monitoring Suppl (ONE TOUCH ULTRA 2) w/Device kit 1 each 2 times daily. 1 kit 3 Active OneTouch Delica Lancets 33G misc 1 each 2 times daily. 100 each 11 3 Active glucose blood (OneTouch Ultra) test stripIndications: Type 2 diabetes mellitus without complication, without long-term current use of insulin (CMS/HCC) TEST TWO TIMES A DAY 100 strip 11 4 Active Diclofenac Sodium (Voltaren) 1 % gel Use BID 100 g 11 4 Active lisinopril 40 MG tabletIndications :Essential (primary) hypertension TAKE 1 TABLET BY MOUTH EVERY DAY 90 tablet 3 4 Active cloNIDine (Catapres) 0.1 MG tabletIndications :Primary hypertension TAKE 1 TABLET BY MOUTH TWICE A DAY 180 tablet 1 5 Active Buprenorphine HCl-Naloxone HCl (Suboxone) 8-2 MG SL filmIndications:O pioid type dependence, continuous (CMS/HCC) Place 2 Film under the tongue Once per day. Do not start before June 07, 2024. 56 Film 1 5 08/03/19 25 Active GaviLAX 17 GM/SCOOP powder MIX AND DRINK 17 GRAMS BY MOUTH ONCE PER DAY 510 g 5 Active metFORMIN (Glucophage) 500 MG tablet TAKE 1 TABLET (500 MG) BY MOUTH WITH BREAKFAST AND WITH EVENING MEAL 180 tablet 3 5 06/04/19 26 Active buprenorphine-nal oxone (Suboxone) 4-1 MG per sublingual filmIndications:O pioid dependence, uncomplicated (CMS/HCC) Place 1 Film under the tongue 2 times daily. In addition to the 8mg-2mg SL BID dose (total 24mg-6mg daily) 56 Film 1 5 08/04/19 25 Active predniSONE (Deltasone) 20 MG tablet Take 1 tablet (20 mg) by mouth Once per day for 5 days. 5 tablet 5 06/16/19 25 Active Problems Problem Noted Date Diagnosed Date [...] Encounters Date Type Department Care Team Description 07/05/2024 Refill [facility] CHC MED & PEDS [address] [place] [address] Kimberly Fay MD 06/17/2024 Refill [facility] MED & PEDS [address] [place] [address] Kimberly Fay MD 06/10/2024 9:20 AM EDT Office Visit [facility] WALK-IN CENTER [address] [place] [address] Kimberly Fay MD Left hip pain (Primary Dx) 06/10/2024 Telephone [facility] MEDICINE [address] [place] [address] Kimberly Fay MD 06/08/2024 Telephone [facility] WALK[facility] [address] [place] [address] Quan Fairchild MD 06/08/2024 Telephone [facility] MEDICINE [address] [place] [address] Randi Porter RN 06/07/2024 11:00 AM EDT Clinical Support [facility] MED & PEDS [address] [place] [address] Randi Porter, RN Opioid type dependence, continuous (CMS/HCC) (Primary Dx) 06/07/2024 Travel 06/04/2024 Telephone [facility] MEDICINE [address] [place] [address] Kimberly Fay MD Nurse Triage 06/02/2024 Refill [facility] CHC MED & PEDS [address] [place] [address] Kimberly Fay MD 05/31/2024 Refill [facility] MEDICINE [address] [place] [address] Randi Porter, RN Opioid type dependence, continuous (CMS/HCC) 05/08/2024 Refill [facility] CHC MED & PEDS [address] [place] [address] Pedro Gallegos MD Primary hypertension 05/08/2024 Refill [facility] MED & PEDS [address] [place] [address] Kimberly Fay MD 04/09/2024 Telephone [facility] MED & PEDS [address] [place] [address] Kimberly Fay MD Returning call from Last 3 Months Immunizations Name Administration [...] Description 08/02/2024 10:00 AM EDT Office Visit [facility] MED & PEDS [address] [place] [address] Quan Fairchild MD [address] [place] [address] 08/18/2024 11:30 AM EDT Office Visit [facility] MED & PEDS [address] [place] [address] Kimberly Fay MD [address] [place] [address] Health Maintenance Due Date Last Done Comments [...] 04/07/2024 9:59 AM EST Other chest pain LIPID PANEL, STANDARD Routine 02/09/2024 10:31 AM [...] AM EDT Narrative 06/10/2024 10:22 AM EDT ?[facility] ?[address] ?[place] [address] ?XRay Report ? Signed ? Patient: Rafia,Juvenal ?MR#: [id number] ?? 6 ? : 1960 ?Acct:[id number] ? Age/Sex: 64 / M ?ADM Date: 06/10/24 ? Loc: HO.HHCX ? Attending Dr: Kimberly Fay MD ? Ordering Physician: Kimberly Fay MD ?? Date of Service: 06/10/24 ?? Procedure(s): XR hip LT min 2V ?? Accession Number(s): [id number] ? cc: Kimberly Fay MD ? EXAMINATION: [...] ? Electronically signed by: ??Luis Angel Monik PICKETT ??06/10/2024 10:20 AM EDT RP ? Dictated By: ?Monik,Luis Angel S MD ? Signed By: ?<Electronically signed by Luis Angel S MD Monik in OV> ?06/10/24 1020 ? DD/ 0941 ? TD/TT: 06/10/24 1000 ? Membership Sales Advisor: MSM ? Procedure Note Crow Larry - 06/10/[address] [address] XRay Report Signed Patient: Juvenal Morataya#: [id number] 6 : 8Acct:[id number] Age/Sex: 64 / MADM Date: 06/10/24 Loc: HO.HHCX Attending Dr: Kimberly Fay MD Ordering Physician: Kimberly Fay MD Date of Service: 06/10/24 Procedure(s): XR hip LT min 2V Accession Number(s): [id number] cc: Kimberly Fay MD EXAMINATION: XR HIP, [...] 06/10/24 1020 DD/ 0941 TD/TT: 06/10/24 1000 Membership Sales Advisor: MSM Kimberly Fay MD IMG XR PROCEDURES [...] 9:59 AM EST Heart rate 88 bpm. ??[place] -51. ??LAFB. ??Sinus rhythm. ??RSR' in V2. ??No sign of left atrial enlargement or right atrial enlargement. ??No hypertrophy. ?? No ST elevation or ST depression. us Jerman Silva MD ECG ORDERABLES Final Resul t * (ABNORMAL) Lipid Panel, Standard (02/09/2024 10:31 AM EST) Triglycerides 118 <150 mg/dL [facility] Comment:Desirable Triglyceri de: less than 150 mg/dLBorderline High Triglyceride 150-199 mg/dLHigh Triglyceride: 200-499 mg/dLVery High Triglyceride: greater than or equal to 5OO mg/dL Cholesterol 185 <200 mg/dL [facility] Comment:Desirable Cholestero l: less than 200 mg/dLBorderline High Cholesterol: 200-239 mg/dLHigh Cholesterol: greater than 239 mg/dL LDL Cholesterol Calculated 126(H) <100 mg/dL [facility] Comment:Desirable LDL: less than 100 mg/dLNear Optimal/Above Optimal LDL: 110- 129 mg/dLBorderline High LDL: 130-159 mg/dLHigh LDL: 160-189 mg/dLVery High LDL: greater than or equal to 190 mg/dL HDL Cholesterol 36(L) >40 mg/dL [facility] Comment:Desirable HDL: great er than 40 mg/dL Note: This HDL assay may give artificially low results in patients with liver disease. Blood Venous blood specimen / Unknown 02/09/2024 10:31 AM EST 02/09/2024 2:04 PM EST us Kimberly Fay MD LAB BLOOD ORDERABLES Final Resul t [facility] [address] [place] [phone] * POCT HGB A1C (02/09/2024 10:00 AM EST) Hemoglobin A1C 5.5 4.0 - 6.0 % QC Media Lot # [id number] Lot# Expiration Date [id number] Blood 02/09/2024 10:0 0 AM EST Kimberly Fay MD POINT OF CARE TEST ENTER/EDIT OR DERABLES Final Result * Albumin, Random Urine W/Creatinine (12/17/2022 9:40 AM EDT) Creatinine, Urine 248.22 mg/dL [facility] Microalbumin Urine 9.0 mg/L [facility] Microalbum Creatinine Ratio Ur 3.6 <30 ug/mg cr [facility] Comment:Albumin/Creatinine R atio Reference Ranges: Normal: < 30 ug/mg creatinine Microalbuminuria: 30 - 300 ug/mg creatinineClinical Albuminuria: > 300 ug/mg creatinine 12/17/2022 9:40 AM EDT 12/17/2022 2:43 PM EDT Kimberly Fay MD LAB URINE ORDERABLES Final Resul t Performing Organization Address City/State/[facility] Co de Phone Number [facility] [address] [place] [phone] from Last 3 Months or Most Recently Relevant to Health Maintenance Insurance [facility] Care Teams Machine Stacker Relationship Specialty Start Date End Date Kimberly Fay MD [address] [place] [phone] PCP - General Family Medicine 06/24/12
--- OUTSIDE RECORDS SUMMARY | 2024-07-06 15:08 | XMS_ITS | Encounter Summary ---
Author Organization [employer] Address [address] [facility] [place] [address] Care Team Providers Care Map Clerk Name Role Phone Kimberly Fay MD Primary Care Provider [phone] Reason for Visit * Reason Comments Med Refill Encounter Details Date Type Department Care Team ([facility] Contact Info) Description 07/05/2024 Refill [facility] CHC MED & PEDS [address] [place], [place] [phone] Kimberly Fay MD 505 [place] [address] Social History Tobacco Use Types Packs/Day Years [...] [facility] MED & PEDS [address] [place] [address] Quan Fairchild MD [address] [place] [address] 08/18/2024 11:30 AM EDT Office Visit [facility] MED & PEDS [address] [place] [address] Kimberly Fay MD 505 [place] [address] documented as of this encounter Goals Goal [...] documented as of this encounter Care Teams Map Clerk Relationship Specialty Start Date End Date Kimberly Fay MD [address] [place] [address] PCP - General Family Medicine 06/24/12 documented as of this encounter
--- OUTSIDE RECORDS SUMMARY | 2024-07-06 15:08 | XMS_ITS | Data Portability ---
Author Organization [place] [employer] [place], [place] in - Formerly [facility] Address [address] [place] [id number] Care Team Providers Care Needle Grader Name Role Phone HIM CCA OTHER Assessment No assessment recorded. Plan of Treatment Reminders Order Date Submit Date Provider Last Modified By Organization Details Last Modified Time Details Appointments None recorded. Lab BMP, serum or plasma [address], [phone] 10:35:15 Referral None recorded. Procedures None recorded. Surgeries None recorded. Imaging electrocard iogram [address], [phone] 10:35:16 Medication Orders hydrochloro thiazide 12.5 mg tablet 2023 [facility]armacy #[id number], [address] [place], [address], 10:34:55 Patient TargetsNo targets recorded. Patient InstructionsNo instructions recorded. Reason for Referral None Reported. Results Created Date Observation Date Name Description Value Unit Range Abnormal Flag Note LastModifiedBy Organization Detail LastModifiedTime 01/12/20 24 elect rocar diogr am No observ ation record ed. [address], [id number] 01/12/2024 10:35:06 Result Notes None recorded. Procedures Surgical History None recorded. Imaging Results Imaging Date Name Status LastModified by Organization Details LastModified Time 01/12/2024 electrocardiogram completed [address], [phone] 01/12/2024 10:35:06 Procedure Notes None recorded. Medical [...] SNOMED-CT Code Diagnosis ICD10 Code Diagnosis Note [id number] Jerri Jeffries MD Main - [facility] [address] [place] [phone] 01/12/2024 10:23:33 2024 10:31:35 Essential hypertension [id number] I10 Evaluation in the field was performed by my maintenance of way supervisor colleague, as noted above, I provided real-time [...] but not clearly related to BP. On maintenance of way supervisor eval BP 150/87 rest wnl, exam with [...] Tavarez Member ID Guarantor Name 01/12/2024 1 [facility] - DOS ON OR AFTER 2022 - DUAL ELIGIBLE - SENIOR LIVING OPTIONS AND ONE CARE (MEDICARE REPLACEMENT/ADV ANTAGE - HMO) Juvenal Morataya [id number] Juvenal Morataya Notes Date Note Type Note Provider Name and Address Organization Details Recorded Time 01/12/2024 text/html CRC Nurse Triage Notes (Felicia Diaz): Reason For Request: Patient is having Blood Pressure problems, seems high, and fluctuating Chief Complaints: Hypertension PMH: Hypertension, COPD/Asthma Other Allergies: one that was an eye drop unsure the name Comments: [employer] Worker verified the member's name//address and phone [...] s/s and seek emergency treatment if needed General Sales Manager Organization Information for [employer] Name: [facility] Address: [address] [place] [address], [place] [address], Lens Gauger: Jalil Pina MD CLIA No.: [id number] General Sales Manager POC Test Results from [employer] EKG [...] .................... .................... .................... .................... .................... .................... . General Sales Manager Note From [employer]: Pt with hx [...] . Disposition: Fulfilled Jerri Jeffries MD [address] [facility],[address], [place], [address], [employer] 01/12/2024 11:47:27
--- OUTSIDE RECORDS SUMMARY | 2024-07-06 15:08 | XMS_ITS | Encounter Summary ---
Author Organization [employer] Address [address] [facility] [address] [place] [address] Care Team Providers Care Marketing Sales Supervisor Name Role Phone Kimberly Fay MD Primary Care Provider [phone] Reason for Visit * Reason Comments Med Change Request Encounter Details Date Type Department Care Team ([facility] Contact Info) Description 11/15/2022 Refill [facility] [address] [place] [address] Kimberly Fay MD [address] [place] [address] Social History Tobacco Use Types Packs/Day Years [...] Upcoming Encounters Date Type Department Care Team ([facility] Contact Info) Description 08/02/2024 10:00 AM EDT Office Visit [facility] [address] [place] [address] Quan Fairchild MD [address] [place] [address] 08/18/2024 11:30 AM EDT Office Visit [facility] [address] [place] [address] Kimberly Fay MD [address] [place] [address] documented as of this encounter Visit Diagnoses Not on filedocumented in this encounter Additional Health Concerns Assessment Noted Time PHQ-9 Depression Total Score: 3 03/29/19 23 1:20 PM EST documented as of this encounter Care Teams Marketing Sales Supervisor Relationship Specialty Start Date End Date Kimberly Fay MD [address] [place] [address] PCP - General Family Medicine 06/24/12 documented as of this encounter
--- OUTSIDE RECORDS SUMMARY | 2024-07-06 15:09 | XMS_ITS | Encounter Summary ---
Author Organization [employer] Address [address] [place] [address] Care Team Providers Care Lumber Carrier Operator Name Role Phone Kimberly Fay MD Primary Care Provider [phone] Reason for Visit * Reason Comments Med Refill Encounter Details Date Type Department Care Team ([facility] st Contact Info) Description 06/23/2022 Refill [facility] [address] [place] [address] Alexandro Canales, BDS [address] [place], [place] [id number] Dental caries Social History Tobacco Use Types [...] 10:00 AM EDT Office Visit [facility] MED & PEDS [address] [place] [address] Quan Fairchild MD [address] [place] [address] 08/18/2024 11:30 AM EDT Office Visit [facility] MED & PED[facility] [address] [place] [address] Kimberly Fay MD [address] [place] [address] documented as of this encounter Visit Diagnoses Diagnosis Dental caries Unspecified dental caries documented in this encounter Additional Health Concerns Assessment Noted Time PHQ-9 Depression Total Score: 3 03/29/19 23 1:20 PM EST documented as of this encounter Care Teams Lumber Carrier Operator Relationship Specialty Start Date End Date Kimberly Fay MD [address] [place] [address] PCP - General Family Medicine 06/24/12 documented as of this encounter
--- OUTSIDE RECORDS SUMMARY | 2024-07-06 15:09 | XMS_ITS | Encounter Summary ---
Author Organization [employer] Address [address] [place] [address] Care Team Providers Care Senior Data Quality Analyst Name Role Phone Kimberly Fay MD Primary Care Provider [phone] Reason for Visit * Reason Comments Med Refill Encounter Details Date Type Department Care Team ([facility] Contact Info) Description 07/20/2023 Refill [facility] [address] [place], [place] [phone] Kimberly Fay MD [address] [place] [address] Social History Tobacco Use Types Packs/Day Years [...] 10:00 AM EDT Office Visit [facility] MED & PEDS [address] [place] [address] Quan Fairchild MD [address] [place] [address] 08/18/2024 11:30 AM EDT Office Visit [facility] MED & PEDS [address] [place] [address] Kimberly Fay MD [address] [place] [address] documented as of this encounter Visit Diagnoses Not on filedocumented in this encounter Additional Health Concerns Assessment Noted Time PHQ-9 Depression Total Score: 3 03/29/19 23 1:20 PM EST documented as of this encounter Care Teams Senior Data Quality Analyst Relationship Specialty Start Date End Date Kimberly Fay MD [address] [place] [address] PCP - General Family Medicine 06/24/12 documented as of this encounter
[2024-07-07 10:26] VITALS: BP 118/73; PULSE 73; RESP 16; O2SAT 98; BMI 29.8
--- NOTE | 2024-07-07 10:46 | P.CONAN_ITS ---
Documented by User: Barbi Raymundo NP 07/21/24 11:57 HPI - Anesthesia Eval Consult details Narrative: 64yo M for Right Open Repair Hernia Inguinal Reducible with mesh, 07/23/24 Cardiac opitmized per [facility] Card[facility]. Referred by PCP for pt report of chest pain - atypical per cardiology. EKG, ECHO, and Stress ECHO OK No recent illness No CP/SOB with a lot of walking COPD: Flovent <1 x weekly DM2: FBS ~ 75-100 Suboxone daily: Pt plans to take 1 strip only leading up to surgical date PMFSH Active Problems Active Problems: All Active Problems Precordial chest pain (Acute) Recurrent right inguinal hernia (Acute) Incarcerated umbilical hernia (Acute) Inguinal hernia (Acute) Past Medical History Medical History (Updated 07/13/24 @ 10:28 by Elis Almonte PA-C) Teeth missing Schizophrenia Neck pain Arthritis Hx of renal calculi Depression Anxiety Insomnia COPD (chronic obstructive pulmonary disease) Murmur, cardiac Hx of hepatitis C Left inguinal hernia Right inguinal hernia Bipolar affective disorder in remission Type 2 diabetes mellitus HTN (hypertension) Family History Family History (Updated 05/14/24 @ 15:07 by Carolina Awad CMA) Maternal Grandmother DM2 (diabetes mellitus, type 2) Brother Diabetes mellitus type 1 Sister Diabetes mellitus type 1 Family history of problems with anesthesia: No Surgical History Surgical History (Updated 07/07/24 @ 10:16 by Anna Strong RN) Hx of eye surgery (~2023) Hx of right inguinal hernia repair (02/2023) History of hernia surgery Hx of shoulder surgery Hx of left inguinal hernia repair History of right hip replacement History of Problems with Anesthesia: No Social History Social History (Updated 07/13/24 @ 10:20 by Giselle Shah) Are you a primary adult daycare coordinator to a significant other at home: No Do you presently have visiting nurse or other home services: No Alcohol intake: former Patient Tobacco Use Status: Former Tobacco user Tobacco use type: Cigarette Use of substances other than those prescribed or required for medical reasons: No Substance Use Type Other:: on Suboxone since 2011 Have you been hit, kicked, punched, or otherwise hurt by someone within the past year? If so, by whom?: No Are you DNR?: No Advance Directives: No Advance Directives Information Provided: Yes Advance Directives on File: No Poor oral hygiene: Yes Current occupational status: disabled Meds Allergies Allergy/AdvReac Type Severity Reaction Status Date / Time No Known Allergies Allergy Verified 07/23/24 06:12 Home Medications ?Medication ?Instructions ?Recorded ?Confirmed ?Last Taken ?Type buprenorphine 8 mg-naloxone 2 mg 1 film buccal BID 02/03/23 07/07/24 Unknown History sublingual film (Suboxone) lisinopril 10 mg tablet 10 mg PO DAILY 02/03/23 07/23/24 07/23/24 History metformin 500 mg tablet 500 mg PO BID 02/03/23 07/23/24 07/23/24 History clonidine HCl 0.1 mg tablet 0.1 mg PO BID PRN Blood Pressure 02/25/23 07/07/24 Unknown History diclofenac sodium 1 % topical gel 2 g topical BID PRN Pain 02/25/23 07/07/24 Unknown History perphenazine 2 mg tablet 2 mg PO DAILY PRN Agitation 02/25/23 07/07/24 Unknown History perphenazine 4 mg tablet 4 mg PO DAILY 02/25/23 07/07/24 Unknown History venlafaxine 37.5 mg 37.5 mg PO DAILY 02/25/23 07/07/24 Unknown History capsule,extended release 24 hr zolpidem 10 mg tablet 10 mg PO BEDTIME PRN insomnia 02/25/23 07/07/24 Unknown History fluticasone propionate 44 2 puff inhalation BID PRN 07/07/24 07/07/24 Unknown History mcg/actuation HFA aerosol inhaler Shortness Of Breath Or Wheezing buprenorphine 4 mg-naloxone 1 mg 1 film sublingual BID 07/22/24 07/22/24 Unknown History sublingual film Exam Height,Weight and Vital Signs: Height 5 ft 3 in Weight 76.204 kg Last Vital Signs Pulse 73 07/07/24 10:26 Resp 16 07/07/24 10:26 BP 118/73 07/07/24 10:26 Pulse Ox 98 07/07/24 10:26 O2 Del Method Room Air 07/07/24 10:26 Pertinent Lab Results Pertinent Lab Results: Lab Results 07/07/24 Range/Units 11:05 WBC 9.1 (4.8-10.8) X10*3/uL RBC 4.63 (4.60-5.80) X10*6/uL Hgb 13.9 L (14.0-18.0) g/dl Hct 40.1 L (42.0-52.0) % MCV 86.6 (80.0-98.0) fL MCH 30.0 (27.0-33.0) pg MCHC 34.7 (31.0-36.0) g/dl RDW 12.4 (11.0-16.0) % Plt Count 270 (160-400) X10*3/uL MPV 9.7 (9.4-12.4) fL Absolute Nucleated RBC 0.000 (0.0-0.012) X10*3/uL Nucleated RBC % (auto) 0.0 (0.0-0.2) /100WBC Sodium 140 (135-145) mmol/L Potassium 4.5 (3.3-5.1) mmol/L Chloride 105 (96-108) mmol/L Carbon Dioxide 27 (22-29) mmol/L Anion Gap 13 (12-20) BUN 17 H (9-16) mg/dL Creatinine 0.99 (0.5-1.4) mg/dL Estim Creat Clear Calc 67.0 Estimated GFR > 60 Random Glucose 97 (60-115) mg/dL Calcium 9.9 D (8.4-10.2) mg/dL Total Bilirubin 1.2 H (0.0-1.0) mg/dL AST 21 (5-37) U/L ALT 14 (0-40) U/L Alkaline Phosphatase 62 (39-117) U/L Total Protein 7.6 (6.5-8.0) g/dL Albumin 4.4 (3.5-5.0) g/dL Narrative Narrative: ECHO 04/2024 Conclusions: - The left ventricular systolic function is normal. The calculated ejection fraction is 59% by biplane method. - No obvious valvular pathology seen on this study. - There is mild dilatation of the ascending aorta measuring 3.80 cm. EKG 04/2024 NSR @ 68 Stress ECHO 06/2024 Exercise Stress Test with exercise 5 mins 10 secs of Mark Protocol, achieving 96% MPHR, with reports of SOB, no chest pain, without any arrythmias, with normotensive response to exercise. Without EKG changes meeting criteria for ischemia. In recovery, pt's breathing returned to baseline. Echo images obtained by tech at rest and post peak exercise. Definity contrast utilized. Test reviewed with Dr. Valenzuela. Exercise echocardiogram reviewed. At rest, there is normal LVEF and wall motion. After peak exercise, there is appropriate augmentation of wall thickening and contractility. There is normal decrease in end systolic volume. No evidence of exercise induced diastolic dysfunction or pulmonary hypertension. Overall, normal study. Airway Mallampati Class: III TM Dist: >3cm Neck ROM: Full Loose/Missing/Broken Teeth: Yes (Only 2 teeth remain, not loose or broken) Heart: RRR Lungs: CTAB Assessment and Plan Assessment Anesthesia Assessment: Anesthesia Plan Discussed and PAT Visit Final Anesthetic Review Family History of Problems with Anesthesia: No History of Problems with Anesthesia: No Documented by User: Kamille Coleman MD 07/23/24 07[facility] Past Medical History Medical History (Updated 07/13/24 @ 10:28 by Elis Almonte PA-C) Teeth missing Schizophrenia Neck pain Arthritis Hx of renal calculi Depression Anxiety Insomnia COPD (chronic obstructive pulmonary disease) Murmur, cardiac Hx of hepatitis C Left inguinal hernia Right inguinal hernia Bipolar affective disorder in remission Type 2 diabetes mellitus HTN (hypertension) Family History Family History (Updated 05/14/24 @ 15:07 by Carolina Awad CMA) Maternal Grandmother DM2 (diabetes mellitus, type 2) Brother Diabetes mellitus type 1 Sister Diabetes mellitus type 1 Surgical History Surgical History (Updated 07/07/24 @ 10:16 by Anna Strong RN) Hx of eye surgery (~2023) Hx of right inguinal hernia repair (02/2023) History of hernia surgery Hx of shoulder surgery Hx of left inguinal hernia repair History of right hip replacement Social History Social History (Updated 07/13/24 @ 10:20 by Giselle Shah) Are you a primary adult daycare coordinator to a significant other at home: No Do you presently have visiting nurse or other home services: No Alcohol intake: former Patient Tobacco Use Status: Former Tobacco user Tobacco use type: Cigarette Use of substances other than those prescribed or required for medical reasons: No Substance Use Type Other:: on Suboxone since 2011 Have you been hit, kicked, punched, or otherwise hurt by someone within the past year? If so, by whom?: No Are you DNR?: No Advance Directives: No Advance Directives Information Provided: Yes Advance Directives on File: No Poor oral hygiene: Yes Current occupational status: disabled Meds Allergies Allergy/AdvReac Type Severity Reaction Status Date / Time No Known Allergies Allergy Verified 07/23/24 06:12 Home Medications ?Medication ?Instructions ?Recorded ?Confirmed ?Last Taken ?Type buprenorphine 8 mg-naloxone 2 mg 1 film buccal BID 02/03/23 07/07/24 Unknown History sublingual film (Suboxone) lisinopril 10 mg tablet 10 mg PO DAILY 02/03/23 07/23/24 07/23/24 History metformin 500 mg tablet 500 mg PO BID 02/03/23 07/23/24 07/23/24 History clonidine HCl 0.1 mg tablet 0.1 mg PO BID PRN Blood Pressure 02/25/23 07/07/24 Unknown History diclofenac sodium 1 % topical gel 2 g topical BID PRN Pain 02/25/23 07/07/24 Unknown History perphenazine 2 mg tablet 2 mg PO DAILY PRN Agitation 02/25/23 07/07/24 Unknown History perphenazine 4 mg tablet 4 mg PO DAILY 02/25/23 07/07/24 Unknown History venlafaxine 37.5 mg 37.5 mg PO DAILY 02/25/23 07/07/24 Unknown History capsule,extended release 24 hr zolpidem 10 mg tablet 10 mg PO BEDTIME PRN insomnia 02/25/23 07/07/24 Unknown History fluticasone propionate 44 2 puff inhalation BID PRN 07/07/24 07/07/24 Unknown History mcg/actuation HFA aerosol inhaler Shortness Of Breath Or Wheezing buprenorphine 4 mg-naloxone 1 mg 1 film sublingual BID 07/22/24 07/22/24 Unknown History sublingual film Assessment and Plan Assessment Anesthesia Assessment: Chart Reviewed Final Anesthetic Review NPO: Yes ASA Class: III Final Preanesthetic Review: No Changes in Pt Med Stat, Meds/Allgs Chart Reviewed, Consent Obtained/Reviewed and Anes Risks/Benef Reviewed Patient Risk: Intermediate Procedure Risk: Low Anesthetic Plan Anesthetic Plan: GA Disposition: Standard PACU
[2024-07-07 11:38] LABS: Hematocrit 40.1 % (42.0-52.0); Hemoglobin 13.9 g/dl (14.0-18.0); Mean Corpuscular HGB Conc 34.7 g/dl (31.0-36.0); Mean Corpuscular Volume 86.6 fL (80.0-98.0); Mean Platelet Volume 9.7 fL (9.4-12.4); Platelet Count 270 X10*3/uL (160-400); Red Blood Count 4.63 X10*6/uL (4.60-5.80); Red Cell Distribution Width 12.4 % (11.0-16.0); White Blood Count 9.1 X10*3/uL (4.8-10.8)
[2024-07-07 12:36] LABS: Alanine Aminotransferase 14 U/L (0-40); Albumin Level 4.4 g/dL (3.5-5.0); Alkaline Phosphatase 62 U/L (39-117); Anion Gap 13 (12-20); Aspartate Amino Transferase 21 U/L (5-37); Bilirubin Total 1.2 mg/dL (0.0-1.0); Blood Urea Nitrogen 17 mg/dL (9-16); Calcium 9.9 mg/dL (8.4-10.2); Carbon Dioxide 27 mmol/L (22-29); Chloride 105 mmol/L (96-108); Estimated Glomerular Filt Rate > 60; Glucose Random 97 mg/dL (60-115); Potassium 4.5 mmol/L (3.3-5.1); Sodium 140 mmol/L (135-145); Total Protein 7.6 g/dL (6.5-8.0)
[2024-07-23 06:27] VITALS: BP 119/73; PULSE 76; RESP 14; TEMP 36.6; O2SAT 98
[2024-07-23 06:40] LABS: Glucose, Whole Blood 99 mg/dL (60-115)
[2024-07-23] MEDS: Lactated Ringers 1,000 ML 100 ML IVCONT (06:43)
--- NOTE | 2024-07-23 07:27 | P.HPSUR_ITS ---
Pre-Procedural Eval Section A - 24 Hr Update-Section A only Date of Service: 07/23/24 The patient is an INPATIENT: No Changes since office visit: Yes Patient answered all questions; No Cold of Flu in the past 2 weeks, No New Medical Problems and No Changes in Medication The patient has been examined within 24 hours of the surgical procedure. The History & Physical has been completed within 30 days and I have reviewed it.: No Section B - Complete if H&P > 30 days Chief Complaint: Unilateral inguinal hernia, without obstruction or Details of Present Illness: Patient denies any new symptoms in the right groin. Previously underwent a repair last year and now feels a lump on the right side. Denies any nausea, vomiting, fever or chills. Relevant Family History (Specify if Yes): No Relevant Social History: None Present Medications: see Short Stay Collaborative assessment Medical History: No relevant PMH History of Previous Operations: Relevant previous surgery/procedure and date(s) Allergies: Allergies Allergy/AdvReac Type Severity Reaction Status Date / Time No Known Allergies Allergy Verified 07/23/24 06:12 Review of Systems Sugical H&P ROS: Negative: Constitution, Cardiovascular, Respiratory, Neurological, Psychiatric, Hem-Onc, Allergic/Immunologic, Gastrointestinal, Genitourinary, Musculoskeletal, Integumentary, Endocrine and Eyes/Ears/Nose/T hroat Exam Surgical H&P Exam: Normal: HEENT, Normal: Heart, Normal: Lungs, Normal: Extremities, Normal: Skin and Normal: Neurological and Significant Findings: Abdomen (right inguinal hernia, reducible) Plan Diagnosis/Plan: Unchanged I have reviewed the history and physical and performed a pertinent physical examination on my patient. No changes have occurred unless specified. I reviewed the procedure, risks, and alternatives were repair of this recurrent right inguinal hernia and he consents to a repair of the right inguinal hernia with mesh. Time Spent With Patient Time: Total time managing care of this patient today ____ minutes.
--- NOTE | 2024-07-23 08:52 | W.PM.OPN ---
Operative Note Operative Note Date of Service: 07/23/24 Narrative: Preoperative diagnosis: Recurrent right inguinal hernia Postoperative diagnosis: Same Procedure: Repair of recurrent right inguinal hernia with mesh Surgeon: Heath Calles MD Airfield Defence Guard: Jaky Wall PA-C Anesthesia: General LMA Indications for procedure: 64-year-old male patient presenting with previous history of repair of a right inguinal hernia with mesh last year using a plug type repair. Patient now has a new lump in the right groin which increases in size with Valsalva and reduces with light pressure. Findings suggestive of a recurrent right inguinal hernia. Operative findings: Recurrent indirect right inguinal hernia containing small bowel. This was repaired using a large PHS mesh. Specimen: Hernia sac Estimated blood loss: 2 mL Complications: None Procedure details: Patient was brought to the OR and placed in a supine position. After administering general anesthesia the patient's abdomen was prepped with ChloraPrep and draped in a sterile fashion. A surgical time-out was called the consent confirmed. Patient received preoperative antibiotics and Venodyne boots were in place. Local anesthesia consisting of 0.5% Sensorcaine with epinephrine was infiltrated over the right inguinal ligament. Incision was then made with a scalpel over the right inguinal ligament and carried out through subcutaneous tissue past Michelle's fascia to the external oblique aponeurosis. Palpation revealed a hernia extending through the external ring. This was dissected free from the anus tissue and mobilized. Extensive scar medially within the inguinal canal related to the previous hernia repair. The external oblique aponeurosis was incised with a scalpel and widened with the Metzenbaum scissors. Spermatic cord was dissected free from the surrounding hernia and scar tissue. This was then retracted using a Aubrey drain. The hernia sac was then dissected towards the internal ring. Findings were consistent with a indirect hernia. The sac was entered and the small bowel reduced into the abdominal cavity. The sac was then ligated using a 0 Polysorb suture and the sac excised. A preperitoneal space was then dissected within the internal ring. A large PHS mesh was then obtained. The circular underlay was deployed within the preperitoneal space. The overlay was then secured to the pubic tubercle, conjoined tendon, and shelving edge of the inguinal ligament using a 0 Polysorb suture. A slit was made in the mesh in the mesh wrapped around the spermatic cord at the internal ring. This was then secured to the shelving edge and Poupart's ligament using the 0 Polysorb suture. The medial portion of the mesh was also secured to the previous mesh the medial inguinal canal. The internal ring was loose enough to allow the passage of the tip of the index finger. Wounds were then irrigated with saline solution and suctioned dry. External oblique aponeurosis was then closed using a running 2-0 Polysorb suture. Approximately 8 mL of Zenrelef was then instilled for postoperative pain relief. Michelle's fascia was then reapproximated using interrupted 3-0 Polysorb sutures. Dermis was reapproximated using interrupted 3-0 Polysorb sutures. Skin was then closed using a running subcuticular 4-0 Polysorb suture. Steri-Strips, 4 x 4 gauze and Tegaderm were then applied. The patient told procedure well. Sponge, instrument, and needle counts reported as correct. The patient was transferred to PACU in stable condition.
[2024-07-23 09:00] VITALS: BP 134/80; PULSE 73; RESP 16; TEMP 36.6; O2SAT 97
[2024-07-23 09:05] VITALS: BP 124/78; PULSE 69; RESP 16; O2SAT 97
[2024-07-23 09:10] VITALS: BP 123/86; PULSE 73; RESP 16; O2SAT 98
[2024-07-23 09:15] VITALS: BP 129/81; PULSE 92; RESP 16; O2SAT 98
[2024-07-23 09:25] VITALS: BP 141/93; PULSE 83; RESP 16; TEMP 36.6; O2SAT 99
== END 2024-07-23 09:52 | disposition home or self-care (01) ==
PROVIDERS: Nurse Practitioner; PCP Student in an Organized Health Care Education/Training Program; Visit Provider Surgery
PROC: (CPT 49520; principal; 2024-07-23 07:30)
DX: K40.91 Unilateral inguinal hernia, without obstruction or gangrene, recurrent (principal); I10 Essential (primary) hypertension; E11.9 Type 2 diabetes mellitus without complications; J44.9 Chronic obstructive pulmonary disease, unspecified; F32.A Depression, unspecified; F41.8 Other specified anxiety disorders; R07.2 Precordial pain; R01.1 Cardiac murmur, unspecified; Z87.442 Personal history of urinary calculi; Z86.19 Personal history of other infectious and parasitic diseases; Z79.84 Long term (current) use of oral hypoglycemic drugs; Z79.899 Other long term (current) drug therapy; Z98.890 Other specified postprocedural states; Z87.891 Personal history of nicotine dependence
CPT/HCPCS: 49520; 36415; 80053; 82947; 85027; 88302; C1781; C9088; J0131; J0690; J1885; J2003; J2371; J2405; J2704; J3010

== ENCOUNTER → 2024-07-23 05:41 | Outpatient (BNV) | payer OTHER, SELFPAY | PROVIDERS: PCP Student in an Organized Health Care Education/Training Program; Visit Provider Surgery | DX: K40.91 Unilateral inguinal hernia, without obstruction or gangrene, recurrent (principal) | CPT/HCPCS: 49520 ==

== ENCOUNTER 2024-08-02 13:35 | Outpatient (AMB) | payer OTHER, SELFPAY ==
--- NOTE | 2024-08-02 13:41 | MHC.OFFVIS ---
Vital Signs 08/02/24 13:46 Weight 166 lb BP 126/67 Blood Pressure Location Rt brachial Position Sitting Pulse 77 Intake Visit Reasons: s/p RIH w/mesh Intake Note: Patient is seen in office for post op assessment post Repair of recurrent right inguinal hernia with mesh. Pt c/o: no concerns. Steri strips still in place. No longer taking rx pain meds. 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 Endorses some mild pain with ambulation. He denies any strenuous activity and has been cautious. He endorses some constipation and is hoping to get the script refilled. He states he has very hard stools and is trying not to strain when passing a bowel movement. He has no concerns at this time [facility] Medical History Teeth missing Schizophrenia Neck pain Arthritis Hx of renal calculi Depression Anxiety Insomnia COPD (chronic obstructive pulmonary disease) Murmur, cardiac Hx of hepatitis C Left inguinal hernia Right inguinal hernia Bipolar affective disorder in remission Type 2 diabetes mellitus HTN (hypertension) Surgical History History of right inguinal hernia repair (07/22/24) Hx of eye surgery (~2023) Hx of right inguinal hernia repair (02/2023) History of hernia surgery Hx of shoulder surgery Hx of left inguinal hernia repair History of right hip replacement Family History Maternal Grandmother DM2 (diabetes mellitus, type 2) Brother Diabetes mellitus type 1 Sister Diabetes mellitus type 1 Social History Are you a primary childcare administrator to a significant other at home: No Do you presently have visiting nurse or other home services: No Alcohol intake: former Patient Tobacco Use Status: Former Tobacco user Tobacco use type: Cigarette Current occupational status: disabled Physical Exam Vital Signs: Last Vital Signs Pulse 77 08/02/24 13:46 BP 126/67 08/02/24 13:46 Const General: comfortable and no acute distress GI Other: Right inguinal hernia repair incision site is intact Steri-Strips present, mild edema noted no surrounding erythema, warmth, discharge Inspection: No Abdominal wall edema and No distended Palpation (GI): Soft to palpation, not firm, Tenderness to palpation present (GI) (Mild incisional), no guarding and not rigid Assessment & Plan Assessment & Plan (1) S/P inguinal hernia repair: Code(s): Z98.890 - Other specified postprocedural states; Z87.19 - Personal history of other diseases of the digestive system Category: Surgical (2) Constipation: Code(s): K59.00 - Constipation, unspecified Category: Medical Qualifiers: Constipation type: unspecified constipation type Qualified Code(s): K59.00 - Constipation, unspecified Plan 64-year-old male status post right inguinal hernia repair with mesh on 07/23/2024 presenting to the office for routine follow-up. Surgical specimen pathology results were as follows; Mesothelial-lined fibrovascular and adipose tissue with chronic inflammation, consistent with hernia sac. Patient is doing well experiencing mild pain and mild swelling at the incision site. Abdominal exam benign aside from some mild incisional site tenderness, mild edema, appears appropriate for this stage of recovery. Incision site is intact no surrounding erythema, discharge. No concerns for infection. Steri-Strips are still in place instructed the patient that he can remove these in the shower. Patient has been experiencing constipation reports firm stools and some straining. Patient already has 20 more days of previous prescription for Colace, we will send one-week of MiraLax. Recommended adequate hydration and increasing dietary fiber. We discussed continuing activity restrictions including no heavy lifting greater than 15-20 lb and no strenuous exercise. Patient okay to follow up in 4 weeks or sooner as needed. Patient agrees to this plan. Medications: New polyethylene glycol 3350 (Miralax) 17 grams PO DAILY 7 ea 0RF K59.00 - Constipation, unspecified Coding Level of Care Code Global (37032) Diagnoses S/P inguinal hernia repair Z98.890; Z87.19 Constipation, unspecified constipation type K59.00 Constipation type: unspecified constipation type
[2024-08-02 13:46] VITALS: BP 126/67; PULSE 77
--- OUTSIDE RECORDS SUMMARY | 2024-08-02 13:54 | XMS_ITS | Encounter Summary ---
Author Organization [employer] Address [address] [place] [address] Care Team Providers Care Pastry Decorator Name Role Phone Kimberly Fay MD Primary Care Provider [phone] Reason for Visit * Reason Comments Med Refill Encounter Details Date Type Department Care Team ([facility] st Contact Info) Description 02/11/2024 Refill [facility] CH[facility] MED & PEDS [address] [place], [place] [phone] Kimberly Fay MD [address] [place] [address] Social History Tobacco Use Types Packs/Day Years [...] Care Team (Late st Contact Info) Description 08/18/2024 11:30 AM EDT Office Visit [facility] MED & PEDS [address] [place] [address] Kimberly Fay MD [address] [place] [address] 09/27/2024 10:30 AM EDT Office Visit [facility] MED & PEDS [address] [place] [address] Quan Fairchild MD [address] [place] [address] documented as of this encounter Visit Diagnoses Not on filedocumented in this encounter Additional Health Concerns Assessment Noted Time PHQ-9 Depression Total Score: 3 03/29/19 23 1:20 PM EST documented as of this encounter Care Teams Pastry Decorator Relationship Specialty Start Date End Date Kimberly Fay MD [address] [place] [address] PCP - General Family Medicine 06/24/12 documented as of this encounter
--- OUTSIDE RECORDS SUMMARY | 2024-08-02 13:54 | XMS_ITS | Encounter Summary ---
Author Organization [employer] Address [address] [place] [address] Care Team Providers Care Project Specialist Name Role Phone Kimberly Fay MD Primary Care Provider [phone] Encounter Details Date Type Department Care Team ([facility] st Contact Info) Description 01/09/2024 Telephone [facility] ADULT DENTAL [address] [place] [address] Alexandro Canales, JOHANNE [address] [place], [place] [phone] Social History Tobacco Use Types Packs/Day Years [...] Description 08/18/2024 11:30 AM EDT Office Visit [facility] MED & PEDS [address] [place] [address] Kimberly Fay MD [address] [place] [address] 09/27/2024 10:30 AM EDT Office Visit [facility] MED & PEDS [address] [place] [address] Quan Fairchild MD [address] [place] [address] documented as of this encounter Visit Diagnoses Not on filedocumented in this encounter Additional Health Concerns Assessment Noted Time PHQ-9 Depression Total Score: 3 03/29/19 23 1:20 PM EST documented as of this encounter Care Teams Project Specialist Relationship Specialty Start Date End Date Kimberly Fay MD [address] [place] [address] PCP - General Family Medicine 06/24/12 documented as of this encounter
--- OUTSIDE RECORDS SUMMARY | 2024-08-02 13:55 | XMS_ITS | Encounter Summary ---
Author Organization [employer] Address [address] [place] [address] Care Team Providers Care Registrar Assistant Name Role Phone Kimberly Fay MD Primary Care Provider [phone] Reason for Visit * Reason Comments Med Refill Encounter Details Date Type Department Care Team ([facility] st Contact Info) Description 02/12/2024 Refill [facility] CH[facility] MED & PEDS [address] [place], [place] [phone] Kimberly Fay MD [address] [place] [address] Social History Tobacco Use Types Packs/Day Years [...] 08/18/2024 11:30 AM EDT Office Visit [facility] MED & PEDS [address] [place] [address] Kimberly Fay MD [address] [place] [address] 09/27/2024 10:30 AM EDT Office Visit [facility] MED & PEDS [address] [place] [address] Quan Fairchild MD [address] [place] [address] documented as of this encounter Visit Diagnoses Not on filedocumented in this encounter Additional Health Concerns Assessment Noted Time PHQ-9 Depression Total Score: 3 03/29/19 23 1:20 PM EST documented as of this encounter Care Teams Registrar Assistant Relationship Specialty Start Date End Date Kimberly Fay MD [address] [place] [address] PCP - General Family Medicine 06/24/12 documented as of this encounter
--- OUTSIDE RECORDS SUMMARY | 2024-08-02 13:55 | XMS_ITS | Encounter Summary ---
Author Organization [employer] Address [address] [place] [address] Care Team Providers Care Pie Cutter Name Role Phone Kimberly Fay MD Primary Care Provider [phone] Reason for Visit * Reason Onset Date Comments Med Refill 07/30/2024 Encounter Details Date Type Department Care Team ([facility] st Contact Info) Description 07/30/2024 Refill [facility] MEDICINE [address] [place] [address] Randi Porter, RN Opioid dependence, uncomplicated (CMS/HCC); Opioid type dependence, continuous (CMS/HCC) Social History [...] 08/18/2024 11:30 AM EDT Office Visit [facility] MED & PEDS [address] [place] [address] Kimberly Fay MD [address] [place] [address] 09/27/2024 10:30 AM EDT Office Visit [facility] MED & PEDS [address] [place] [address] Quan Fairchild MD [address] [place], [place] [phone] documented as of this encounter Goals Goal Patient Goal Type Associated Problems Recent Progress Patient-Stated? Author Increase coping skills to promote long-term recovery and improve ability to perform daily activities General No Randi Porter, ADELINA documented as of this encounter Visit Diagnoses Diagnosis Opioid dependence, uncomplicated (CMS/HCC) Opioid type dependence, continuous (CMS/HCC) Opioid type dependence, continuous documented in this encounter Additional Health Concerns Assessment Noted Time PHQ-9 Depression Total Score: 3 03/29/19 23 1:20 PM EST documented as of this encounter Care Teams Pie Cutter Relationship Specialty Start Date End Date Kimberly Fay MD [address] [place] [address] PCP - General Family Medicine 06/24/12 documented as of this encounter
--- OUTSIDE RECORDS SUMMARY | 2024-08-02 13:55 | XMS_ITS | Clinical Summary ---
Author Organization [employer] Address [address] [place] [address] Care Team Providers Care Line Crew Supervisor Name Role Phone Kimberly Fay MD Primary Care Provider [phone] Allergies Active Allergy Reactions Criticality Noted Date [...] AND DO NOT RINSE 153 g 09/04/19 23 Active glucose blood (FREESTYLE LITE) test strip USE TO TEST BLOOD SUGAR TWICE A DAY 100 strip 11 11/16/19 23 Active TRUEplus Lancets 33G misc USE TO TEST BLOOD SUGAR TWICE A DAY 100 each 11/16/19 23 Active Blood Glucose Monitoring Suppl (ONE TOUCH ULTRA 2) w/Device kit 1 each 2 times daily. 1 kit 11/20/19 23 Active OneTouch Delica Lancets 33G misc 1 each 2 times daily. 100 each 11/20/19 23 Active glucose blood (OneTouch Ultra) [...] DAY 180 tablet 1 05/11/19 25 Active metFORMIN (Glucophage) 500 MG tablet TAKE 1 TABLET (500 MG) BY MOUTH WITH BREAKFAST AND WITH EVENING MEAL 180 tablet 3 06/04/19 25 026 Active Lancets (OneTouch Delica Plus [id number]) misc TEST BLOOD SUGAR TWICE DAILY 100 each 6 07/08/19 25 Active GaviLAX 17 GM/SCOOP powder MIX AND DRINK 17 GRAMS BY MOUTH ONCE PER DAY 510 g 2 07/29/19 25 Active buprenorphine-na loxone (Suboxone) 4-1 MG per sublingual filmIndications: Opioid dependence, uncomplicated (CMS/HCC) Place 1 Film under the tongue 2 times daily. In addition to the 8mg-2mg SL BID dose (total 24mg-6mg daily) Do not start before August 02, 2024. 56 Film 1 08/03/19 25 025 Active Buprenorphine HCl-Naloxone HCl (Suboxone) 8-2 MG SL filmIndications: Opioid type dependence, continuous (CMS/HCC) Place 2 Film under the tongue Once per day. Do not start before August 02, 2024. 56 Film 1 08/03/19 25 025 Active Buprenorphine HCl-Naloxone HCl (Suboxone) 8-2 MG SL filmIndications: Opioid type dependence, continuous (CMS/HCC) Place 2 Film under the tongue Once per day. Do not start before June 07, 2024. 56 Film 1 06/08/19 25 025 Discontinued(R eorder (will not trigger notification to Pharmacy)) GaviLAX 17 GM/SCOOP powder MIX AND DRINK 17 GRAMS BY MOUTH ONCE PER DAY 510 g 06/04/19 25 025 Discontinued buprenorphine-na loxone (Suboxone) 4-1 MG per sublingual filmIndications: Opioid dependence, uncomplicated (CMS/HCC) Place 1 Film under the tongue 2 times daily. In addition to the 8mg-2mg SL BID dose (total 24mg-6mg daily) 56 Film 1 06/09/19 25 025 Discontinued(R eorder (will not trigger notification to Pharmacy)) buprenorphine-na loxone (Suboxone) 4-1 MG per sublingual filmIndications: Opioid dependence, uncomplicated (CMS/HCC) Place 1 Film under the tongue 2 times daily. In addition to the 8mg-2mg SL BID dose (total 24mg-6mg daily) Do not start before August 02, 2024. 56 Film 1 08/03/19 25 025 Discontinued(R eorder (will not trigger notification to Pharmacy)) Buprenorphine HCl-Naloxone HCl (Suboxone) 8-2 MG SL filmIndications: Opioid type dependence, continuous (CMS/HCC) Place 2 Film under the tongue Once per day. Do not start before August 02, 2024. 56 Film 1 08/03/19 25 025 Discontinued(R eorder (will not trigger notification to Pharmacy)) Active Problems Problem Noted Date Diagnosed Date [...] Encounters Date Type Department Care Team Description 08/02/2024 10:00 AM EDT Office Visit [facility] [address] [place] [address] Quan Fairchild MD Opioid type dependence, continuous (CMS/HCC) (Primary Dx) 08/02/2024 Travel 07/30/2024 Refill [facility] [address] [place] [phone] Randi Porter, RN Opioid dependence, uncomplicated (CMS/HCC); Opioid type dependence, continuous (CMS/HCC) 07/27/2024 Refill [facility] [address] [place] [address] Kimberly Fay MD 07/26/2024 Refill [facility] [address] [place] [address] Randi Porter, RN Opioid dependence, uncomplicated (CMS/HCC); Opioid type dependence, continuous (CMS/HCC) 07/07/2024 Orders Only GENERIC EXTERNAL DATA DEPARTMENT Provider, Generic External Data 07/05/2024 Refill [facility] [address] [place] [address] Kimberly Fay MD 06/17/2024 Refill [facility] MED & PEDS [address] [place] [address] Kimberly Fay MD 06/10/2024 9:20 AM EDT Office Visit [facility] [address] [place] [phone] Kimberly Fay MD Left hip pain (Primary Dx) 06/10/2024 Telephone [facility] [address] [place] [address] Kimberly Fay MD 06/08/2024 Telephone [facility] [address] [place] [address] Quan Fairchild MD 06/08/2024 Telephone [facility] [address] [place] [address] Randi Porter RN 06/07/2024 11:00 AM EDT Clinical Support [facility] [address] [place] [address] Randi Porter, ADELINA Opioid type dependence, continuous (CMS/HCC) (Primary Dx) 06/07/2024 Travel 06/04/2024 Telephone [facility] [address] [place] [phone] Kimberly Fay MD Nurse Triage 06/02/2024 Refill [facility] [address] [place] [address] Kimberly Fay MD 05/31/2024 Refill [facility] [address] [place] [address] Randi Porter RN Opioid type dependence, continuous ([facility]/HCC) 05/08/2024 Refill [facility] MED & PEDS [address] [place], [place] [phone] Pedro Gallegos MD Primary hypertension 05/08/2024 Refill [facility] MED & PEDS [address] [place], [place] [phone] Kimberly Fay MD from Last 3 Months [...] your housing situation today? I have katy deacon 06/02/[address] you li [...] Description 08/18/2024 11:30 AM EDT Office Visit [facility] MED & PEDS [address] [place] [address] Kimberly Fay MD [address] [place] [address] 09/27/2024 10:30 AM EDT Office Visit [facility] MED & PEDS [address] [place] [address] Quan Fairchild MD [address] [place] [phone] Health Maintenance Due Date Last Done Comments [...] Comments POCT LB-14 URINE DRUG SCREEN Routine 08/02/2024 9:53 AM EDT Opioid type dependence, continuous (CMS/HCC) GROSS AND MICROSCOPIC LEVEL 2 Routine 07/23/2024 8:39 AM EDT GLUCOSE, WHOLE BLOOD Routine 07/23/2024 6:37 AM EDT COMPREHENSIVE METABOLIC PANEL Routine 07/07/2024 11:05 AM [...] complication, without long-term current use of insulin ([facility]) POCT GLYCATED HEMOGLOBIN, TOTAL Routine 02/09/2024 10:00 AM EST Type 2 diabetes mellitus without complication, without long-term current use of insulin ([facility]) PROPHYLAXIS - ADULT Routine 04/02/2023 1 0:00 AM EST PANORAMIC RADIOGRAPHIC IMAGE Routine 04/02/2023 10:00 AM EST PERIODIC ORAL EVALUATION - ESTABLISHED PATIENT Routine 04/02/2023 10:00 AM EST ALBUMIN, RANDOM URINE W/CREATININE Routine 12/17/2022 9:40 AM EDT from Last 3 Months or Most Recently Relevant to Health Maintenance Results * POCT LB-14 Urine Drug Screen (08/02/2024 9:53 AM EDT) Only the most recent of2 resultswithin the time period is included. THC Negative Cocaine Screen, Urine Negative Opiate Screen, Urine Negative Methamphetamine Screen Urine Negative Amphetamine Screen, Urine Negative Benzodiazepines Screen, Urine Negative Barbiturate Screen, Urine Negative Methadone Screen, Urine Negative Buprenophine Screen, Urine Positive TCA, Urine Negative MDMA Urine Negative ng/mL Oxycodone Screen, Urine Negative Phencyclidine (PCP), Urine Negative Fentanyl, Urine Negative Urine Urine specimen obtained by clean catch procedure / Unknown 08/02/2024 9:53 AM EDT Quan Fairchild MD POINT OF CARE TEST ENTER/EDIT OR DERABLES Final Result * Gross and Microscopic Level 2 (07/23/2024 8:39 AM EDT) 07/23/2024 8:39 AM EDT 07/23/2024 9:26 AM EDT Narrative [facility] - 07/26/2024 2:19 PM EDT ----- ------- Name: Juvenal Morataya ?Age/Sex: 64/M ? : 1960 Unit#: [id number] ?? Attend Dr: Heath Calles MD ?Re07/23/24 ?Status: DEP SDC ? Location: HO.SSS ?Disch: ? ----- ------- SPEC : [id number] ? RECD: 07/23/24 ? STATUS: ??SOUT ? REQ NUM: [id number] ? FORTUNATO: 07/23/24 ? SUBM DR: Heath Calles MD ? ENTERED: ??07/23/24 ?SP TYPE: Surgical ? OTHR DR: Kimberly Fay MD ? ORDERED: ??Gross Micro L2 ? Diagnosis ?? Right inguinal hernia, herniorrhaphy: ??Mesothelial-lined fibrovascular and adipose tissue ?? with chronic inflammation, consistent with hernia sac. ?Clinical History Right inguinal hernia ?Microscopic Description Microscopic sections reviewed. ? Material Received ?? Hernia sac ? Gross Description Received in formalin labeled ?hernia sac? is a portion of red-pink fibromembranous tissue measuring 7.5 x 2.5 x 0.2 cm. ??The inner lining is smooth and unremarkable. ??There is a small amount of adherent adipose tissue on the outer surface. ??Evidence Specialist sections are submitted for microscopic examination, 3 pieces in cassette A. ??([facility]) Copies To: ?? Heath Calles MD ?? [facility] Hospital ??[address] ?? [place] [address] ?? [phone] ?? Kimberly Fay MD ?? [facility] ?? [address] ?? [place] [address] ?? [phone] ----- ------- Signed (signature on file) Jerald Shipman MD 07/26/24 9970 ? ----- ------- ? END OF REPORT ? Generic External Data Provider LAB CYTOLOGY ORDE RABLES Final Result Performing Organization Address [facility] Co de Phone Number [facility] [address] [place] [address] [phone] * Glucose, Whole Blood (07/23/2024 6:37 AM EDT) [facility] Glucose, Whole Blood 99 60 - 115 mg/dL [facility] Comment:METER #: [id number] 07/23/2024 6:37 AM EDT 07/23/2024 6:40 AM EDT Generic External Data Provider LAB BLOOD ORDERAB LES Final Result Performing Organization Address [facility] de Phone Number [facility] [address] [place] [address] [phone] * (ABNORMAL) CBC (07/07/2024 11:05 AM EDT) [facility] White Blood Count 9.1 4.8 - 10.8 X10*3/uL [facility] Red Blood Count 4.63 4.60 - 5.80 X10*6/uL [facility] Hemoglobin 13.9(L) 14.0 - 18.0 g/dl [facility] Hematocrit 40.1(L) 42.0 - 52.0 % [facility] Mean Corpuscular Volume 86.6 80.0 - 98.0 fL [facility] Mean Corpuscular Hemoglobin 30.0 27.0 - 33.0 pg [facility] Mean Corpuscular HGB Conc 34.7 31.0 - 36.0 g/dl [facility] Red Cell Distribution Width 12.4 11.0 - 16.0 % [facility] Platelet Count 270 160 - 400 X10*3/uL [facility] Mean Platelet Volume 9.7 9.4 - 12.4 fL [facility] NRBC Pct Auto 0.0 0.0 - 0.2 /100WBC [facility] NRBC Abs Auto 0.000 0.0 - 0.012 X10*3/uL [facility] 07/07/2024 11:0 5 AM EDT 07/07/2024 11:05 AM EDT us Generic External Data Provider LAB BLOOD ORDERAB LES Final Result [facility] [address] [place] [phone] * (ABNORMAL) Comprehensive Metabolic Panel (07/07/2024 11:05 AM EDT) Sodium 140 135 - 145 mmol/L [facility] Potassium 4.5 3.3 - 5.1 mmol/L [facility] Chloride 105 96 - 108 mmol/L [facility] Carbon Dioxide 27 22 - 29 mmol/L [facility] Anion Gap 13 12 - 20 [facility] Urea Nitrogen (BUN) 17(H) 9 - 16 mg/dL [facility] Creatinine, Serum 0.99 0.5 - 1.4 mg/dL [facility] Creatinine Clr Calc Pharmacy 67.0 [facility] Comment:eGFR (calculated fro m the MDRD study equation) and eCrCl(calculated from the Cockcroft-Gault equation) are based ondifferent parameters and may not yield comparable results.If eCrCl result is absurd, please check patient'sheight/weight. Estimated Glomerular Filt Rate >60 [facility] Comment:Chronic Kidney Disea se: Estimated GFR < 60 mL/min/1.56r2Bogsxt Kidney Disease: Estimated GFR < 15 mL/min/1.73m2 Glucose 97 60 - 115 mg/dL [facility] Calcium 9.9 8.4 - 10.2 mg/dL [facility] Bilirubin, Total 1.2(H) 0.0 - 1.0 mg/dL [facility] Aspartate Amino Transferase 21 5 - 37 U/L [facility] Alanine Aminotransferase 14 0 - 40 U/L [facility] Total Protein 7.6 6.5 - 8.0 g/dL [facility] Albumin Level 4.4 3.5 - 5.0 g/dL [facility] Alkaline Phosphatase 62 39 - 117 U/L [facility] 07/07/2024 11:0 5 AM EDT 07/07/2024 11:05 AM EDT us Generic External Data Provider LAB BLOOD ORDERAB LES Final Result Performing Organization Address [facility] Co de Phone Number [facility] [address] [place] [address] [phone] * XR Hip 2 or 3 Views Left (06/10/2024 9:41 AM EDT) Anatomical Region Laterality Modality Lower Extremities, Hip Left Radiograp hic Imaging 06/10/2024 9:41 AM EDT Narrative 06/10/2024 10:22 AM EDT ?[facility] ?[address] ?[place] [address] ?XRay Report ? Signed ? Patient: Rafia,Juvenal ?MR#: [id number] ?? 6 ? : 1960 ?Acct:[id number] ? Age/Sex: 64 / M ?ADM Date: 06/10/ ? Loc: HO.HHCX ? Attending Dr: Kimberly Fay MD ? Ordering Physician: Kimberly Fay MD ?? Date of Service: 06/10/24 ?? Procedure(s): XR hip LT min 2V ?? Accession Number(s): [id number] ? cc: Kimberly Fay MD ? EXAMINATION: [...] by Luis Angel Ruggiero MD in OV> ?06/10/240 ? DD/ 0941 ? TD/TT: 06/10/24 1000 ? Wood Buffer: MSM ? Procedure Note Donamparoter, Image - 06/10/[address] [address] XRay Report Signed Patient: Juvenal MoratayaMR#: [id number] 6 : 1960cct:[id number] Age/Sex: 64 / MADM Date: 06/10/24 Loc: HO.HHCX Attending Dr: Kimberly Fay MD Ordering Physician: Kimberly Fay MD Date of Service: 06/10/24 Procedure(s): XR hip LT min 2V Accession Number(s): [id number] cc: Kimberly Fay MD EXAMINATION: XR HIP, [...] 06/10/24 1020 DD/ 0941 TD/TT: 06/10/24 1000 Wood Buffer: DASHA Kimberly Fay MD IMG XR PROCEDURES Edited Result - Final * (ABNORMAL) Lipid Panel, Standard (02/09/2024 10:31 AM EST) Triglycerides 118 <150 mg/dL [facility] Comment:Desirable Triglyceri de: less than 150 mg/dLBorderline High Triglyceride 150-199 mg/dLHigh Triglyceride: 200-499 mg/dLVery High Triglyceride: greater than or equal to 5OO mg/dL Cholesterol 185 <200 mg/dL [facility] Comment:Desirable Cholestero l: less than 200 mg/dLBorderline High Cholesterol: 200-239 mg/dLHigh Cholesterol: greater than 239 mg/dL LDL Cholesterol Calculated 126(H) <100 mg/dL [facility] Comment:Desirable LDL: less than 100 mg/dLNear Optimal/Above Optimal LDL: 110- 129 mg/dLBorderline High LDL: 130-159 mg/dLHigh LDL: 160-189 mg/dLVery High LDL: greater than or equal to 190 mg/dL HDL Cholesterol 36(L) >40 mg/dL [facility] Comment:Desirable HDL: great er than 40 mg/dL Note: This HDL assay may give artificially low results in patients with liver disease. Blood Venous blood specimen / Unknown 02/09/2024 10:31 AM EST 02/09/2024 2:04 PM EST Kimberly Fay MD LAB BLOOD ORDERABLES Final Resul t [facility] [address] [place] [phone] * POCT HGB A1C (02/09/2024 10:00 AM EST) Hemoglobin A1C 5.5 4.0 - 6.0 % QC Media Lot # [id number] Lot# Expiration Date [id number] Blood 02/09/2024 10:0 0 AM EST us Kimberly Fay MD POINT OF CARE TEST ENTER/EDIT OR DERABLES Final Result * Albumin, Random Urine W/Creatinine (12/17/2022 9:40 AM EDT) Creatinine, Urine 248.22 mg/dL [facility] Microalbumin Urine 9.0 mg/L [facility] Microalbum Creatinine Ratio Ur 3.6 <30 ug/mg cr [facility] Comment:Albumin/Creatinine R atio Reference Ranges: Normal: < 30 ug/mg creatinine Microalbuminuria: 30 - 300 ug/mg creatinineClinical Albuminuria: > 300 ug/mg creatinine 12/17/2022 9:40 AM EDT 12/17/2022 2:43 PM EDT Kimberly Fay MD LAB URINE ORDERABLES Final Resul t [facility] [address] [place] [address] [phone] from Last 3 Months or Most Recently Relevant to Health Maintenance Insurance [facility] USP OPTIONS (O D-SNP) AUDIE DAMIAN [id number] [facility] Care Teams Line Crew Supervisor Relationship Specialty Start Date End Date Kimberly Fay MD [address] [place] [phone] PCP - General Family Medicine 06/24/12
--- OUTSIDE RECORDS SUMMARY | 2024-08-02 13:55 | XMS_ITS | Encounter Summary ---
Author Organization [employer] Address [address] [place] [address] Care Team Providers Care Extension Service Agent Name Role Phone Kimberly Fay MD Primary Care Provider [phone] Reason for Visit * Reason Comments Med Refill Encounter Details Date Type Department Care Team ([facility] st Contact Info) Description 06/23/2022 Refill [facility] [address] [place], [place] [phone] Alexandro Canales, BDS [address] [place], [place] [phone] Dental caries Social History Tobacco Use Types [...] encounter Miscellaneous Notes * Telephone Encounter - Alexandro Canales BDS - 07/24/2022 4:52 PM EDT Approving, but needs appt for additional refills. documented in this encounter Plan of Treatment Upcoming Encounters Date Type Department Care Team (Late st Contact Info) Description 08/18/2024 11:30 AM EDT Office Visit [facility] [address] [place] [address] Kimberly Fay MD [address] [place] [address] 09/27/2024 10:30 AM EDT Office Visit [facility] [address] [place] [address] Quan Fairchild MD [address] [place] [address] documented as of this encounter Visit Diagnoses Diagnosis Dental caries Unspecified dental caries documented in this encounter Additional Health Concerns Assessment Noted Time PHQ-9 Depression Total Score: 3 03/29/19 23 1:20 PM EST documented as of this encounter Care Teams Extension Service Agent Relationship Specialty Start Date End Date Kimberly Fay MD [address] [place] [address] PCP - General Family Medicine 06/24/12 documented as of this encounter
--- OUTSIDE RECORDS SUMMARY | 2024-08-02 13:55 | XMS_ITS | Encounter Summary ---
Author Organization [employer] Address [address] [place] [address] Care Team Providers Care Site Head Name Role Phone Kimberly Fay MD Primary Care Provider [phone] Reason for Visit * Reason Comments Med Refill Encounter Details Date Type Department Care Team ([facility] st Contact Info) Description 03/16/2024 Refill [facility] [address] [place], [place] [phone] Kimberly Fay MD [address] [place] [address] Social History Tobacco Use Types Packs/Day Years [...] Description 08/18/2024 11:30 AM EDT Office Visit [facility] & PEDS [address] [place] [address] Kimberly Fay MD [address] [place] [address] 09/27/2024 10:30 AM EDT Office Visit [facility]ED[facility] [address] [place] [address] Quan Fairchild MD [address] [place] [address] documented as of this encounter Visit Diagnoses Not on filedocumented in this encounter Additional Health Concerns Assessment Noted Time PHQ-9 Depression Total Score: 3 03/29/19 23 1:20 PM EST documented as of this encounter Care Teams Site Head Relationship Specialty Start Date End Date Kimberly Fay MD [address] [place] [address] PCP - General Family Medicine 06/24/12 documented as of this encounter
--- OUTSIDE RECORDS SUMMARY | 2024-08-02 13:55 | XMS_ITS | Encounter Summary ---
Author Organization [employer] Address [address] [place] [address] Care Team Providers Care Perinatal Director Name Role Phone Kimberly Fay MD Primary Care Provider [phone] Encounter Details Date Type Department Care Team (Latest Contact Info) Description 08/02/2024 Travel Social History Tobacco Use Types Packs/Day [...] Description 08/18/2024 11:30 AM EDT Office Visit [facility] MED & PEDS [address] [place] [address] Kimberly Fay MD [address] [place] [address] 09/27/2024 10:30 AM EDT Office Visit [facility] [address] [place] [address] Quan Fairchild MD [address] [place] [address] documented as of this encounter Goals Goal Patient Goal Type Associated Problems Recent Progress Patient-Stated? Author Increase coping skills to promote long-term recovery and improve ability to perform daily activities General Randi Mooney, RN documented as of this encounter Visit Diagnoses Not on filedocumented in this encounter Additional Health Concerns Assessment Noted Time PHQ-9 Depression Total Score: 3 03/29/19 23 1:20 PM EST documented as of this encounter Care Teams Perinatal Director Relationship Specialty Start Date End Date Kimberly Fay MD [address] [place] [address] PCP - General Family Medicine 06/24/12 documented as of this encounter
--- OUTSIDE RECORDS SUMMARY | 2024-08-02 13:55 | XMS_ITS | Encounter Summary ---
Author Organization [employer] Address [address] [place] [address] Care Team Providers Care Hydrometer Calibrator Name Role Phone Kimberly Fay MD Primary Care Provider [phone] Reason for Visit * Reason Comments Med Change Request Encounter Details Date Type Department Care Team ([facility] Contact Info) Description 11/15/2022 Refill [facility] [address] [place] [address] Kimberly Fay MD [address] [place] [address] Social History Tobacco Use Types Packs/Day Years [...] Encounters Date Type Department Care Team ([facility] Contact Info) Description 08/18/2024 11:30 AM EDT Office Visit [facility] [address] [place] [address] Kimberly Fay MD [address] [place] [address] 09/27/2024 10:30 AM EDT Office Visit [facility]ED[facility] [address] [place] [address] Quan Fairchild MD [address] [place] [address] documented as of this encounter Visit Diagnoses Not on filedocumented in this encounter Additional Health Concerns Assessment Noted Time PHQ-9 Depression Total Score: 3 03/29/19 23 1:20 PM EST documented as of this encounter Care Teams Hydrometer Calibrator Relationship Specialty Start Date End Date Kimberly Fay MD [address] [place] [address] PCP - General Family Medicine 06/24/12 documented as of this encounter
--- OUTSIDE RECORDS SUMMARY | 2024-08-02 13:55 | XMS_ITS | Encounter Summary ---
Author Organization [employer] Address [facility] [address] [place] [address] Care Team Providers Care Quality Assurance Monitor Final Name Role Phone Kimberly Fay MD Primary Care Provider [phone] Reason for Visit * Reason Comments Med Refill Encounter Details Date Type Department Care Team ([facility] st Contact Info) Description 07/20/2023 Refill [facility] MED & PEDS [address] [place], [place] [phone] Kimberly Fay MD [address] [place] [address] Social History Tobacco Use Types Packs/Day Years [...] 11:30 AM EDT Office Visit [facility] MED & PEDS [address] [place] [address] Kimberly Fay MD [address] [place] [address] 09/27/2024 10:30 AM EDT Office Visit [facility] MED & PEDS [address] [place] [address] Quan Fairchild MD [address] [place] [address] documented as of this encounter Visit Diagnoses Not on filedocumented in this encounter Additional Health Concerns Assessment Noted Time PHQ-9 Depression Total Score: 3 03/29/19 23 1:20 PM EST documented as of this encounter Care Teams Quality Assurance Monitor Final Relationship Specialty Start Date End Date Kimberly Fay MD [address] [place] [address] PCP - General Family Medicine 06/24/12 documented as of this encounter
--- OUTSIDE RECORDS SUMMARY | 2024-08-02 13:55 | XMS_ITS | Encounter Summary ---
Author Organization [employer] Address [address] [facility] [address] [place] [address] Care Team Providers Care Repairer Wood Furniture Name Role Phone Kimberly Fay MD Primary Care Provider [phone] Reason for Visit * Reason Comments OBAT F/U Encounter Details Date Type Department Care Team ([facility] Contact Info) Description 08/02/2024 10:00 AM EDT Office Visit [facility] MED & PEDS [address] [place] [address] Quan Fairchild MD [address] [place] [address] Opioid type dependence, continuous (CMS/HCC) (Primary Dx) [...] is your housing situation today? I have katymathieu worthy 06/02/[address] you [...] as of this encounter Progress Notes * Quan Fairchild MD - 08/02/2024 10:00 AM EDT Patient here today for Opioid Dependence RV. Patient is on current Suboxone dose of 16/4 mg on a 8 week schedule. Pt has been in the program for 6 years 0 months. Induction date: 05/28/18 (Pt has been on Suboxone since 2006). Patient actively enrolled in behavioral health services, therapist Coleen Sam and psychiatrist at [facility] in [place]. 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 PCP: Sumeet 06/11/23 LFTs: Done 06/18/23 Hepatitis C: VL negative 03/03/18. Fibrosis = F2 2015 Hepatitis B/Hepatitis A: Immune T-spot Negative 05/28/18 HIV Negative 05/28/18 LAST OBOT VISIT: 06/07/2024 UTOX: SPIKE Sanford said he is hanging in there. When asked what could be better, he said that he had hernia surgery years ago and now it has ruptured again. In order for him to have it surgically repaired again, he needs to see a senior lead java developer (because he said he is feeling some [...] not really help. Suggested that he contact senior lead java developer and ask for a sooner appointment so that surgery can take place sooner rather than later. He said he gets about 4 hours of sleep a night. When he wakes up, he usually gets up to draw. His drawings are so life-like. He focuses on eyes, which he says are the window to the soul. TODAY OBAT VISIT 08/02/2024 UTOX: POS BUP ONLY NEG FOR ALL OTHE RSUBSTANCES Patient presents in-person for OUD OBAT evaluation Doing well without cravings or relapse States last opioid/cocaine use was in 2010 Suboxone dosing schedule of 16/4mg daily and management of side effects reviewed Undergone glaucoma surgery (11/19/2023) Recovery support, harm reduction, and behavioral health attendance reviewed Patient expressed understanding and agreement with continuing plan of care Follow up in 8 weeks Review of Systems Psychiatric/Behavioral: Negative for behavioral problems and dysphoric mood. The patient is not nervous/anxious. Physical Exam Constitutional: Appearance: Normal appearance. Pulmonary: Effort: Pulmonary effort is normal. Neurological: Mental Status: He is alert. Psychiatric: Mood and Affect: Mood normal. Behavior: Behavior normal. Juvenal was seen today for obat f/u. Diagnoses and all orders for this visit: Opioid type dependence, continuous ([facility]) (Primary) - POCT LB-14 Urine Drug Screen Patient presents for a routine OUD OBAT visit Discussed treatment options for opioid dependence Patient is tolerating current treatment of Buprenorphine/Naloxone SL Discussed behavioral modification and accessing services Counseling provided with a focus on support system, tools for achieving/maintaining recovery Reviewed barriers for these goals Discussed strategies to address when faced situations that may trigger use Continue with current visit schedule Narcan use discussed [place] reviewed Reviewed risk assessment for family planning, STI and PrEP Follow up in 8 weeks This information has been disclosed to you [...] Description 08/18/2024 11:30 AM EDT Office Visit [facility] MED & PEDS [address] [place], [place] [phone] Kimberly Fay MD 505 [place], [place] [phone] 09/27/2024 10:30 AM EDT Office Visit [facility] MED & PEDS [address] [place], [place] [phone] Quan Fairchild MD [address] [place] [address] documented as of this encounter Goals Goal Patient Goal Type Associated Problems Recent Progress Patient-Stated? Author Increase coping skills to promote long-term recovery and improve ability to perform daily activities Randi Ramirez, RN documented as of this encounter Procedures Procedure Name Priority Date/Time Associated Diagnosis Comments POCT LB-14 URINE DRUG SCREEN Routine 08/02/2024 9:53 AM EDT Opioid type dependence, continuous ([facility]) documented in this encounter Results * POCT LB-14 Urine Drug Screen (08/02/2024 9:53 AM EDT) THC Negative Cocaine Screen, Urine [...] CARE TEST ENTER/EDIT OR DERABLES Final Result documented in this encounter Visit Diagnoses Diagnosis Opioid type dependence, continuous (CMS/HCC)- Primary Opioid type dependence, continuous documented in this encounter Additional Health Concerns Assessment Noted Time PHQ-9 Depression Total Score: 3 03/29/19 23 1:20 PM EST documented as of this encounter Care Teams Repairer Wood Furniture Relationship Specialty Start Date End Date Kimberly Fay MD [address] [place] [address] PCP - General Family Medicine 06/24/12 documented as of this encounter
--- OUTSIDE RECORDS SUMMARY | 2024-08-02 13:55 | XMS_ITS | Encounter Summary ---
Author Organization [employer] Address [address] [facility] [address] [place] [address] Care Team Providers Care Smash Piecer Name Role Phone Kimberly Fay MD Primary Care Provider [phone] Reason for Referral * Imaging (Routine) - Closed Specialty Diagnoses / Procedures Referred By Contron t Referred To Contact Radiology Diagnoses Right inguinal hernia Procedures Us Pelvis complete Kimberly Fay MD [address] [place] [address] Phone: tel: fax: [facility] fax: Referral ID Status Reason Start Date Expiration Date Visits Re quested Visits Authorized [id number] Closed 12/19/2022 12/19/2023 1 1 Encounter Details Date Type Department Care Team ([facility] st Contact Info) Description 12/19/2022 Orders Only [facility] CHC MED & PEDS [address] [place] [address] Kimberly Fay MD [address] [place] [address] Right inguinal hernia (Primary Dx) Social History Tobacco Use Types Packs/Day Years Used Date Smoking Tobacco: Former Cigarettes 1.5 20 Passive Smoke Exposure: Never Smokeless Tobacco: Current Snuff Comments:Stopped 2016 Alcohol Use Standard Drinks/Week Comments [...] 11:30 AM EDT Office Visit [facility] MED & PEDS [address] [place] [address] Kimberly Fay MD [address] [place] [address] 09/27/2024 10:30 AM EDT Office Visit [facility] MED & PEDS [address] [place] [address] Quan Fairchild MD [address] [place] [address] Scheduled Orders Name Type Priority Associated Diagnoses [...] documented as of this encounter Care Teams Smash Piecer Relationship Specialty Start Date End Date Kimberly Fay MD [address] [place] [address] PCP - General Family Medicine 06/24/12 documented as of this encounter
--- OUTSIDE RECORDS SUMMARY | 2024-08-02 13:55 | XMS_ITS | Encounter Summary ---
Author Organization [employer] Address [address] [place] [address] Care Team Providers Care Medical Coding Technician Name Role Phone Kimberly Fay MD Primary Care Provider Reason for Visit * Reason Comments Med Change Request Encounter Details Date Type Department Care Team ([facility] Contact Info) Description 11/16/2022 Refill [facility] CHC MED & PEDS [address] [place] [address] Kimberly Fay MD [address] [place] [address] Social History Tobacco Use Types Packs/Day Years [...] Upcoming Encounters Date Type Department Care Team ([facility] Contact Info) Description 08/18/2024 11:30 AM EDT Office Visit [facility] CH[facility] MED & PEDS [address] [place] [address] Kimberly Fay MD [address] [place] [address] 09/27/2024 10:30 AM EDT Office Visit [facility] CH[facility] MED & PEDS [address] [place] [address] Quan Fairchild MD [address] [place] [address] documented as of this encounter Visit Diagnoses Not on filedocumented in this encounter Additional Health Concerns Assessment Noted Time PHQ-9 Depression Total Score: 3 03/29/19 23 1:20 PM EST documented as of this encounter Care Teams Medical Coding Technician Relationship Specialty Start Date End Date Kimberly Fay MD [address] [place] [address] PCP - General Family Medicine 06/24/12 documented as of this encounter
--- OUTSIDE RECORDS SUMMARY | 2024-08-02 13:55 | XMS_ITS | Data Portability ---
Author Organization [employer] [place] in - [facility] Address [address] [place] [id number] Care Team Providers Care Soldering Inspector Name Role Phone HIM CCA OTHER Assessment No assessment recorded. Plan of Treatment Reminders Order Date Submit Date Provider Last Modified By Organization Details Last Modified Time Details Appointments None recorded. Lab BMP, serum or plasma [address], [phone] 10:35:15 Referral None recorded. Procedures None recorded. Surgeries None recorded. Imaging electrocard iogram [address], [phone] 10:35:16 Medication Orders hydrochloro thiazide 12.5 mg tablet 2023 [id number], [address] [place], [address], 10:34:55 Patient TargetsNo targets recorded. Patient InstructionsNo instructions recorded. Reason for Referral None Reported. Results Created Date Observation Date Name Description Value Unit Range Abnormal Flag Note LastModifiedBy Organization Detail LastModifiedTime 01/12/20 24 elect rocar diogr am No observ ation record ed. [address], [id number] 01/12/2024 10:35:06 Result Notes None recorded. Procedures Surgical History None recorded. Imaging Results Imaging Date Name Status LastModified by Organization Details LastModified Time 01/12/2024 electrocardiogram completed [address], [phone] 01/12/2024 10:35:06 Procedure Notes None recorded. Medical [...] SNOMED-CT Code Diagnosis ICD10 Code Diagnosis Note [id number] Jerri Jeffries MD Main - instED [address] [place] [phone] 01/12/2024 10:23:33 2024 10:31:35 Essential hypertension [id number] I10 Evaluation in the field was performed by my steward/stewardess colleague, as noted above, I provided real-time [...] but not clearly related to BP. On steward/stewardess eval BP 150/87 rest wnl, exam with [...] Recorded Advance Directives Directive None Recorded Payers Insurance Date Sequence Insurance Name Policy Number Policy Tavarez Covered Member ID Tavarez Member ID Guarantor Name 01/12/2024 1 [facility] - DOS ON OR AFTER 2022 - DUAL ELIGIBLE - LONG-TERM OPTIONS AND ONE CARE (MEDICARE REPLACEMENT/ADV ANTAGE - HMO) Juvenal Morataya [id number] Juvenal Morataya Notes Date Note Type Note Provider Name and Address Organization Details Recorded Time 01/12/2024 text/html CRC Nurse Triage Notes (Felicia Diaz): Reason For Request: Patient is having Blood Pressure problems, seems high, and fluctuating Chief Complaints: Hypertension PMH: Hypertension, COPD/Asthma Other Allergies: one that was an eye drop unsure the name Comments: Hadoop Analyst verified the member's name//address and phone number. [...] s/s and seek emergency treatment if needed Supervisor Beater Room Organization Information for Jah [employer] Name: [facility] Address: [address] [place] [address], [place] [address], Laser Specialist: Jalil Pina MD CLIA No.: [id number] Supervisor Beater Room POC Test Results from [facility] Cadet EKG [...] .................... .................... .................... .................... .................... .................... . Supervisor Beater Room Note From [employer] [facility]: Pt with hx of COPD, HTN, DM II reports several days of elevated BP (150? s -160? s / 80? s -90? s ). Pt takes lisinopril 40 mg daily and [...] . Disposition: Fulfilled Jerri Jeffries MD [address] [facility],[address], [place], [address], [employer] - DrAvailable 01/12/2024 11:47:27
--- OUTSIDE RECORDS SUMMARY | 2024-08-02 13:55 | XMS_ITS | Encounter Summary ---
Author Organization [employer] Address [address] [facility] [address] [address] [place] [address] Care Team Providers Care Residential Field Manager Name Role Phone Kimberly Fay MD Primary Care Provider [phone] Reason for Visit * Reason Comments Med Refill Encounter Details Date Type Department Care Team ([facility] st Contact Info) Description 07/27/2024 Refill [facility] CHC MED & PEDS [address] [place], [place] [phone] Kimberly Fay MD [address] [place] [address] Social History Tobacco Use Types Packs/Day Years [...] Description 08/18/2024 11:30 AM EDT Office Visit [facility] MED & PEDS [address] [place] [address] Kimberly Fay MD [address] [place] [address] 09/27/2024 10:30 AM EDT Office Visit [facility] MED & PEDS [address] [place] [address] Quan Fairchild MD [address] [place] [address] documented as of this encounter Goals Goal [...] documented as of this encounter Care Teams Residential Field Manager Relationship Specialty Start Date End Date Kimberly Fay MD [address] [place] [address] PCP - General Family Medicine 06/24/12 documented as of this encounter
== END 2024-08-02 13:54 | disposition home or self-care (01) ==
LOC: HO.HGS 13:35
PROVIDERS: PCP Student in an Organized Health Care Education/Training Program
DX: K59.00 Constipation, unspecified (principal); Z98.890 Other specified postprocedural states; Z87.19 Personal history of other diseases of the digestive system
CPT/HCPCS: 99024

== ENCOUNTER → 2024-08-02 13:35 | Outpatient (BNVA) | payer OTHER, SELFPAY | PROVIDERS: PCP Student in an Organized Health Care Education/Training Program ==

== ENCOUNTER 2024-08-18 11:44 | Outpatient (REF) | payer OTHER, SELFPAY ==
--- OUTSIDE RECORDS SUMMARY | 2024-08-18 12:33 | XMS_ITS | Encounter Summary ---
Author Organization [employer] Address [address] [facility] [address] [place] [address] Care Team Providers Care Ncqa Specialist Name Role Phone Kimberly Fay MD Primary Care Provider [phone] Encounter Details Date Type Department Care Team ([facility] st Contact Info) Description 01/09/2024 Telephone [facility] ADULT DENTAL [address] [place] [address] Alexandro Canales, BDLacie [address] [place], [place] [phone] Social History Tobacco Use Types Packs/Day Years [...] Care Team (Late st Contact Info) Description 09/27/2024 10:30 AM EDT Office Visit [facility] MED & PEDS [address] [place] [address] Quan Fairchild MD [address] [place] [address] 10/19/2024 10:45 AM EDT Telemedicine [facility] MED & PEDS [address] [place] [address] Kimberly Fay MD [address] [place] [address] documented as of this encounter Visit Diagnoses Not on filedocumented in this encounter Additional Health Concerns Assessment Noted Time PHQ-9 Depression Total Score: 3 03/29/19 23 1:20 PM EST documented as of this encounter Care Teams Ncqa Specialist Relationship Specialty Start Date End Date Kimberly Fay MD [address] [place] [address] PCP - General Family Medicine 06/24/12 documented as of this encounter
[2024-08-19 18:49] LABS: Immunoglobulin A 240 mg/dL (70-320); Transglutaminase IgA <1.0 U/mL
== END 2024-08-18 11:45 | disposition home or self-care (01) ==
LOC: HO.CHCLDS 11:44
PROVIDERS: Visit Provider Student in an Organized Health Care Education/Training Program
DX: R10.84 Generalized abdominal pain (principal)
CPT/HCPCS: 36415; 82784; 86364

== ENCOUNTER 2024-08-30 13:40 | Outpatient (AMB) | payer OTHER, SELFPAY ==
--- NOTE | 2024-08-30 13:47 | A.OFFVIS_ITS ---
Vital Signs 08/30/24 13:48 Height 5 ft 3 in Weight 166 lb 6 oz BMI 29.5 BP 124/68 Blood Pressure Location Lt brachial Position Sitting Pulse 71 Intake Visit Reasons: 1m s/p RIH w/mesh Intake Note: Patient is seen in office for one month follow up visit, post right inguinal hernia repair. Pt c/o: denies any cocerns Steam Conditioning Operator Required: No Accompanied by: Other Relationship Allergies No Known Allergies Allergy (Verified 08/30/24 13:48) HPI HPI 1m s/p RIH w/mesh: Details: He is doing well. He does not have any pain. Denies fever or chills. Reports that his bowels have been regular since we prescribed him the MiraLax. Appetite is at baseline. He would like to resume exercising. [facility] Medical History Teeth missing Schizophrenia Neck pain Arthritis Hx of renal calculi Depression Anxiety Insomnia COPD (chronic obstructive pulmonary disease) Murmur, cardiac Hx of hepatitis C Left inguinal hernia Right inguinal hernia Bipolar affective disorder in remission Type 2 diabetes mellitus HTN (hypertension) Surgical History History of right inguinal hernia repair (07/22/24) Hx of eye surgery (~2023) Hx of right inguinal hernia repair (02/2023) History of hernia surgery Hx of shoulder surgery Hx of left inguinal hernia repair History of right hip replacement Family History Maternal Grandmother DM2 (diabetes mellitus, type 2) Brother Diabetes mellitus type 1 Sister Diabetes mellitus type 1 Social History Are you a primary health care attorney to a significant other at home: No Do you presently have visiting nurse or other home services: No Alcohol intake: former Patient Tobacco Use Status: Former Tobacco user Tobacco use type: Cigarette Current occupational status: disabled Review of Systems Const Denies chills and Denies fever(s) GI Denies constipation Physical Exam Vital Signs: Last Vital Signs Pulse 71 08/30/24 13:48 BP 124/68 08/30/24 13:48 BMI result Body Mass Index 29.5 Const General: comfortable and no acute distress Orientation/consciousness: patient oriented x3 Resp Effort & Inspection: normal respiratory effort and able to speak in complete sentences GI Other: Right inguinal hernia repair site appears to be healing well. Incision site is intact. No evidence of fluid collection, surrounding erythema. Hernia nonreproducible with increased abdominal pressure Inspection: No distended Palpation (GI): Soft to palpation, not firm, nontender, no guarding and not rigid Neuro General: patient oriented x3 Assessment & Plan Assessment & Plan (1) S/P inguinal hernia repair: Code(s): Z98.890 - Other specified postprocedural states; Z87.19 - Personal history of other diseases of the digestive system Category: Medical Plan 64-year-old male s/p right inguinal hernia repair with mesh on 07/23/2024 presenting for routine follow-up. Patient is doing well, not having any pain. His constipation from last visit has resolved with MiraLax use as needed. On exam the area is nontender, appears to be healing well. No concern for infection at this time. There was no evidence of recurrence of the hernia with increased abdominal pressure on exam. Abdominal exam is soft and benign. We will lift activity restrictions for patient. Recommended that he slowly returned to baseline level of activity. Patient can follow-up as needed with any concerns in the future Coding Level of Care Code Global (25376) Diagnoses S/P inguinal hernia repair Z98.890; Z87.19
[2024-08-30 13:48] VITALS: BP 124/68; PULSE 71; BMI 29.5
--- OUTSIDE RECORDS SUMMARY | 2024-08-30 15:29 | XMS_ITS | Encounter Summary ---
Author Organization [employer] Address [address] [facility] [address] [address] [place] [address] Care Team Providers Care Package Dyer Name Role Phone Kimberly Fay MD Primary Care Provider [phone] Encounter Details Date Type Department Care Team ([facility] st Contact Info) Description 01/09/2024 Telephone [facility] ADULT DENTAL [address] [place] [address] Alexandro Canales, BDLacie [address] [place], [place] [phone] Social History Tobacco Use Types Packs/Day Years [...] Description 09/27/2024 10:30 AM EDT Office Visit [facility] MED & PEDS [address] [place] [address] Quan Fairchild MD [address] [place] [address] 10/19/2024 10:45 AM EDT Telemedicine [facility] MED & PEDS [address] [place] [address] Kimberly Fay MD [address] [place] [address] documented as of this encounter Visit Diagnoses Not on filedocumented in this encounter Additional Health Concerns Assessment Noted Time PHQ-9 Depression Total Score: 3 03/29/19 23 1:20 PM EST documented as of this encounter Care Teams Package Dyer Relationship Specialty Start Date End Date Kimberly Fay MD [address] [place] [address] PCP - General Family Medicine 06/24/12 documented as of this encounter
== END 2024-08-30 14:11 | disposition home or self-care (01) ==
LOC: HO.HGS 13:41
PROVIDERS: PCP Student in an Organized Health Care Education/Training Program
DX: Z98.890 Other specified postprocedural states (principal); Z87.19 Personal history of other diseases of the digestive system
CPT/HCPCS: 99024

== ENCOUNTER → 2024-08-30 13:40 | Outpatient (BNVA) | payer OTHER, SELFPAY | PROVIDERS: PCP Student in an Organized Health Care Education/Training Program | DX: K40.90 Unilateral inguinal hernia, without obstruction or gangrene, not specified as recurrent (principal); Z87.19 Personal history of other diseases of the digestive system; Z98.890 Other specified postprocedural states | CPT/HCPCS: 99212 ==